=== PATIENT | male | born 1980 | race Caucasian/White ===

== ENCOUNTER 2017-10-27 14:39 | Emergency (ER) | payer MEDICAID, SELFPAY ==
[2017-10-27 14:40] VITALS: BP 130/90; PULSE 80; RESP 18; TEMP 37.2; O2SAT 99; BMI 26.9
--- NOTE | 2017-10-27 14:56 | ED.VISSUMM ---
- ER Visit Summary Date of Service: 10/27/17 Chief Complaint: Poison rubina History of Present Illness: The patient is a 37 M who states that 1.5 weeks ago he began to have a poison rubina-like rash on his left arm. He states he has been using calamine lotion. It has been very itchy. He notes an area of blistering at the volar aspect of the left wrist. He states that now he feels that it is coming down to his hand and notes several small blisters on his fingers. Physical Examination: Afebrile vital signs stable Gen: Well-nourished well-developed Head: Normocephalic atraumatic Eyes: Perrl EOMI ENT: TMs clear no rhinorrhea moist mucous membranes Neck: Supple no lymphadenopathy no JVD nontender CVS: Regular rate rhythm no murmurs normal S1-S2 Respiratory: No distress clear to auscultation bilaterally chest nontender Abdomen: Soft nontender nondistended normal bowel sounds no masses Back: Nontender Extremity: Nontender no edema Skin: There is a rash consistent with rhus dermatitis on the volar aspect of the left wrist. There is some dermatitis lesions on the ring and index finger. Neuro: alert orientated ?3 CN II-XII intact normal strength sensation reflexes gait cerebellar Psych: Normal affect normal mood Emergency Department Course and Treatment: Patient will be started on tapering dose of prednisone. Continue calamine lotion. Return if worsening or concerns Impression: 1. Rhus dermatitis This note was generated with [employer] dictation software. It may contain incorrect words, spelling, and punctuation that were not noted in review of the chart prior to signing ED Disposition - Plan for ED Patient: Disposition: Home or Assisted Living Chief Complaint: Rash Instructions: ED Dermatitis Poison Crosby Prescriptions: Prednisone [Deltasone] 60 mg PO DAILY #24 tab Referrals: Dane Lo MD [STAFF PHYSICIAN] - ( NEEDED IF NOT IMPROVING)
== END 2017-10-27 15:17 | disposition home or self-care (01) ==
PROVIDERS: Emergency Provider Emergency Medicine
DX: L23.7 Allergic contact dermatitis due to plants, except food (principal)
CPT/HCPCS: 99282

== ENCOUNTER 2018-05-03 15:24 | Emergency (ER) | payer MEDICAID, SELFPAY ==
[2018-05-03 15:25] VITALS: BP 143/80; PULSE 111; RESP 18; TEMP 37.6; O2SAT 96; BMI 28.3
--- NOTE | 2018-05-03 15:52 | EKG12_ITS ---
Test Reason : CP Blood Pressure : / mmHG Vent. Rate : 099 BPM Atrial Rate : 099 BPM P-R Int : 130 ms QRS Dur : 102 ms QT Int : 332 ms P-R-T Axes : 071 075 039 degrees QTc Int : 426 ms Normal sinus rhythm Possible Left atrial enlargement Poor R-Wave Progression Borderline ECG Confirmed by GIANNI BASS, ESDRAS ([id number]), deputy editor in chief PEDRO JOSE ([id number]) on 05/07/2018 2:02:00 PM Referred By: DANTE/BE Confirmed By:ESDRAS ARCHER MD
--- NOTE | 2018-05-03 15:52 | RAD_ITS ---
STUDY: X-RAY CHEST REASON FOR EXAM: Male, 37 years old. Right-sided chest pain TECHNIQUE: PA and lateral chest COMPARISON: 02/07/2016 FINDINGS: The lungs are clear and expanded. There is no demonstrated pleural abnormality. Normal size heart. Normal mediastinum and ami. Normal visualized pulmonary arteries. Normal visualized aortic arch and descending thoracic aorta. Normal visualized thoracic spine. Normal visualized ribs, clavicles, and shoulders. There is no demonstrated abnormality of the visualized soft tissue structures of the upper abdomen. RAD/Chest PA and Lateral IMPRESSION: Normal x-ray examination of the chest. Electronically Signed: Manolo Salazar, at 16:37 EDT Tel , Service support ,
--- NOTE | 2018-05-03 15:56 | ED.DCSUM_ITS ---
- ER Visit Summary Date of Service: 05/03/18 Chief Complaint: Chest pain History of Present Illness: The patient is a 37 M who presents with chest pain that began today. Patient states he was lifting a bag of trash to wait approximately 25-30 pounds when he developed pain in the right side of his chest. Patient describes the pain as dull, aching, tightness, and heaviness. Patient states pain is worse with deep breathing. Patient states pain is also worse with certain movements. Patient admits to a mild cough. Patient admits to some intermittent shortness of breath. Patient admits to occasional palpitations. Patient states he also has been having some gastroesophageal reflux symptoms recently. Patient denies any PE risk factors. Patient is a smoker and has borderline hypertension. Physical Examination: Vital signs are stable. Patient is afebrile. Patient is in no acute distress. Oral mucosa is pink and moist. Neck is supple. Trachea is midline. There is no JVD noted. Heart was regular rate and rhythm. Lungs are clear and equal bilaterally. There is reproducible tenderness over the right lower chest. Abdomen is soft and nontender. There is some mild tenderness over the right lower thoracic paraspinal area. Cranial nerves II through XII are intact. There are no focal motor or sensory deficits noted. Test Results: EKG showed a normal sinus rhythm with a rate of 99. There are no acute ST or T wave changes. PA and lateral chest x-rays obtained. There is no acute cardiopulmonary process. CBC, basic metabolic profile, troponin were obtained and were normal. Emergency Department Course and Treatment: Patient has a HEART score of 1 for risk factors. Patient has a HILLARY score of 1. Patient was advised that he is at low risk for acute cardiac event. Patient was given a prescription for Naprosyn. Patient was instructed to follow-up with his primary care physician in 5-7 days. Patient understood and was agreeable with the plan. All questions were answered. Disposition: Discharge home Impression: Chest pain This note was generated with [employer] dictation software. It may contain incorrect words, spelling, and punctuation that were not noted in review of the chart prior to signing ED Disposition - Plan for ED Patient: Disposition: Home or Assisted Living Diagnosis: Chest pain Instructions: ED Chest Pain Atypical Unkn Cause Referrals: Care Physician,No Primary [Primary Care Provider] - Tae Solis DO [STAFF PHYSICIAN] - 5-7 Days
[2018-05-03 16:00] VITALS: PULSE 93; RESP 16; TEMP 36.4; O2SAT 97
--- NOTE | 2018-05-03 16:04 | NURSING ---
NO OLD EKGS
[2018-05-03 16:10] LABS: Absolute Lymphocyte Count 2.08 X10^3/ul (0.83-4.51); Absolute Neutrophil Count 5.5 X10^3/uL (2.0-7.7); Basophil# 0.03 X10^3/uL; Basophil% 0.3 % (0-1); Eosinophil# 0.12 X10^3/uL; Eosinophils% 1.4 % (0-5); Hematocrit 44.6 % (40-54); Hemoglobin 15.4 g/dl (13.0-16.5); Lymphocyte # 2.08 X10^3/ul (4.0); Lymphocyte % 23.6 % (19-41); Mean Corp Hgb Conc 34.5 g/gl (32-36); Mean Corpuscular Hgb 30.7 pg (27.0-32.0); Mean Platelet Vol. 9.3 fl (6.2-12.0); Monocyte# 1.04 X10^3/uL; Monocyte% 11.8 % (0-10); Neutrophil # 5.52 X10^3/uL (2.7-7.7); Neutrophil % 62.7 % (47-70); POSITIVE COUNT NO; POSITIVE DIFFERENTIAL NO; POSITIVE MORPHOLOGY NO; Platelet Count 325 K/mm3 (150-450); RBC Distribution Width CV 12.7 % (11.6-14.6); RBC Distribution Width SD 40.8 fl (35.1-43.9); Red Blood Count 5.01 M/mm3 (4.6-6.2); White Blood Count 8.8 K/mm3 (4.4-11.0)
[2018-05-03 16:35] LABS: Anion Gap 4 (5-15); BUN 11 mg/dL (7-18); BUN/Creat Ratio 10.1 RATIO (10-20); Calcium,Total 8.7 mg/dL (8.5-10.1); Chloride 104 mmol/L (98-107); Creatinine, Serum 1.09 mg/dL (0.70-1.30); EST Glomerular Filtration Rate 81 mL/min (>60); Est Glom Filt Rate - Afr Amer 98 mL/min (>60); Estimated Creatinine Clearance 102.83 ml/min; Glucose 92 mg/dL (74-106); Potassium 3.9 mmol/L (3.5-5.1); Sodium Level 136 mmol/L (136-145)
[2018-05-03 16:37] VITALS: BP 129/90; PULSE 94; RESP 16; O2SAT 99
[2018-05-03 17:18] VITALS: BP 142/88; PULSE 83; RESP 18; O2SAT 97
== END 2018-05-03 17:29 | disposition home or self-care (01) ==
PROVIDERS: Emergency Provider Emergency Medicine
DX: R07.9 Chest pain, unspecified (principal); F17.200 Nicotine dependence, unspecified, uncomplicated; J45.909 Unspecified asthma, uncomplicated; I10 Essential (primary) hypertension
CPT/HCPCS: 71046; 80048; 84484; 85025; 93005; 99284; A4216

== ENCOUNTER 2020-03-06 12:40 | Emergency (ER) | payer MEDICAID, SELFPAY ==
[2020-03-06 12:42] VITALS: BP 152/91; PULSE 85; RESP 16; TEMP 36.6; O2SAT 99; BMI 28.5
--- NOTE | 2020-03-06 13:06 | ED.VISSUMM ---
- ER Visit Summary Date of Service: 03/06/20 Chief Complaint: Ring stuck on right ring finger History of Present Illness: The patient is a 39 M states he is unable to get the ring off his right ring finger today. Denies any trauma. No prior history. Said at home he had a associate professor of church music try to get it off and they were unsuccessful. Physical Examination: Young male no acute distress vital signs stable afebrile. H EENT exam unremarkable. Lungs are clear. Heart regular rhythm. Abdomen soft nontender. Right hand he has a large thick wide ring on the proximal aspect of his right ring finger. Distally there is mild swelling. No signs of cellulitis or trauma. He has full flexion-extension of all digits of the right hand. He is normal cap refill and touch sensation distally to the ring. Skin is intact. There is no signs of infection. There is no bony deformity. Test Results: None Emergency Department Course and Treatment: Patient has a ring stuck on his right ring finger. There has been no trauma or any signs of infection. We attempted to cut off the ring with ring cutters it was unsuccessful. We also tried a Raptor scissors which it actually broke them. We then had an area squad come in with their equipment and they were able to cut off the ring. Patient tolerated it well. He is doing well on repeat exam. Treatment Plan: Ice and elevate the area. Watch for any signs of infection. Motrin and elevate. Disposition: dc Impression: Ring stuck on right ring finger (cut off by paramedics) This note was generated with [employer] dictation software. It may contain incorrect words, spelling, and punctuation that were not noted in review of the chart prior to signing ED Disposition - Plan for ED Patient: Referrals: Care Physician,No Primary [NON-STAFF] -
--- NOTE | 2020-03-06 14:59 | ED.DEP ---
ED Disposition - Plan for ED Patient: Disposition: Home or Assisted Living Referrals: Care Physician,No Primary [NON-STAFF] - As Needed Additional Instructions: Ice and elevate your finger to decrease pain and swelling. Watch for any signs of infection that could develop unlikely.
== END 2020-03-06 15:04 | disposition home or self-care (01) ==
PROVIDERS: Emergency Provider Emergency Medicine; PCP Family Medicine
DX: S60.454A Superficial foreign body of right ring finger, initial encounter (principal); J45.909 Unspecified asthma, uncomplicated; Z72.0 Tobacco use; X58.XXXA Exposure to other specified factors, initial encounter; Y93.9 Activity, unspecified; Y92.89 Other specified places as the place of occurrence of the external cause; Y99.8 Other external cause status
CPT/HCPCS: 99282

== ENCOUNTER 2020-09-26 12:27 | Emergency (ER) | payer MEDICAID, SELFPAY ==
[2020-09-26 12:27] VITALS: BP 162/81; PULSE 80; RESP 16; TEMP 38.3; O2SAT 98; BMI 28.4
--- NOTE | 2020-09-26 12:58 | RAD_ITS ---
HISTORY: cough and fever EXAMINATION/TECHNIQUE: XR Chest 1 View: Portable upright AP chest x-ray COMPARISON: None FINDINGS: LINES/DEVICES: None. LUNGS: No consolidation, edema or effusion. No pneumothorax. MEDIASTINUM AND CARDIOVASCULAR STRUCTURES: Cardiac silhouette not enlarged. Central airways and mediastinal contour are unremarkable. BONES AND SOFT TISSUES: No acute bony abnormalities. RAD/Chest 1 View (Portable) IMPRESSION: No radiographic evidence of acute cardiopulmonary disease. at 1349 Reported and signed by: Gee Bowen MD Electronically Signed: Gee Bowen MD at 13:48 EDT Tel , Service support ,
[2020-09-26] MEDS: Acetaminophen 500 MG Tablet 1000 MG PO (13:50)
[2020-09-26 13:53] VITALS: BP 145/94; PULSE 83; RESP 18; O2SAT 98
--- NOTE | 2020-09-26 14:04 | EX.ED.DYSGE1 ---
HPI History of Present Illness Chief Complaint: General Illness Informant: patient and EMS Narrative Narrative: 40-year-old male arrives to the emergency department with fever and cough. He notes diarrhea and headache. He is concerned about Covid. He states that he has been ill for just over a week now. He states that originally one of his children was ill but has since recovered. He also notes that the other children and his have symptoms. [facility] Medical History Asthma Home Medications albuterol sulfate 2 puff INHALATION Q4H PRN 09/26/20 [History Last Taken Unknown] Allergy/AdvReac Type Severity Reaction Status Date / Time No Known Allergies Allergy Verified 09/26/20 12:31 Social History (Updated 09/26/20 @ 14:[address] Philipp Parker DO) Smoking Status: Current every day smoker tobacco type: cigarettes substance use type: does not use ROS ROS ED Constitutional Constitutional ED: Reports fever(s); Denies chills or weight loss Eyes Eyes: Denies change in vision or diplopia ENT ENT ED: Reports rhinorrhea; Denies ear pain or sore throat Cardiovascular Cardiovascular: Denies chest pain, orthopnea, palpitations or racing heartbeat Respiratory/Chest Respiratory/Chest: Reports cough; Denies dyspnea or orthopnea Gastrointestinal Gastrointestinal: Reports diarrhea; Denies abdominal pain, nausea or vomiting Genitourinary Genitourinary ED: Denies dysuria, hematuria or urinary frequency Musculoskeletal Musculoskeletal: Denies arthralgias or myalgias Integumentary Denies abscess or rash Neurologic Neurologic: Reports headache(s); Denies weakness Psychiatric Psychiatric: Denies anxiety, depression, suicidal ideation or suicidal thoughts Endocrine Endocrinology: Denies polydipsia, polyphagia or polyuria Allergic/Immunologic Allergic/Immunologic ED: Denies mouth swelling, tongue swelling or urticaria EXAM Physical Exam Const Vital Signs: 09/26/20 12:27 09/26/20 13:52 09/26/20 13:53 Temperature 101.0 F H Temperature Source Oral Pulse Rate 80 83 Respiratory Rate 16 18 Respiratory Effort Normal Non-Labored Respiratory Pattern Normal Blood Pressure 162/81 H 145/94 H Blood Pressure Mean 108 111 Pulse Ox 98 98 Oxygen Delivery Method Room Air Positive well nourished and well developed General Appearance ED: well developed HEENT Reports normocephalic, head/scalp atraumatic and moist mucous membranes Eyes PERRL and EOMs intact bilaterally Neck no lymphadenopathy, supple and no JVD Resp normal respiratory effort and clear to auscultation bilaterally Cardio regular rate, regular rhythm and no murmurs GI normal to inspection, nondistended, normoactive bowel sounds and non-tender Palpation: soft Back/Spine no CVA tenderness and normal ROM Extremity normal to inspection General Extremety ED: Negative for edema General Extremity: Negative for edema Neuro oriented x3 and CN's II-XII intact bilaterally Sensorium / Orientation: alert Motor Exam: strength 5/5 throughout Psych mental status grossly normal Mood & Affect: Negative for depressed or tearful Skin no rashes or lesions noted and no wounds MDM MDM MDM Narrative Medical decision making narrative: Patient's rapid Covid is negative. My interpretation of the chest x-ray is no acute process. Because we have multiple family members who are ill during the pandemic but I asked them to draw a Covid PCR on the patient. He did receive Tylenol here in the department. At this point patient clinically appears well will be discharged home Radiography Diagnostic Testing: Radiology Impression Chest X-Ray 09/26/20 12:58 IMPRESSION: No radiographic evidence of acute cardiopulmonary disease. at 1349 Reported and signed by: Gee Bowen MD Electronically Signed: Gee Bowen MD at 13:48 EDT Tel , Service support , Discharge Plan Triage Chief Complaint: General Illness ED Provider: Philipp Parker Dx/Rx/DC Orders Clinical Impression: Acute febrile illness Instructions: ED URI, Viral, No Abx (Adult) Prescriptions: No Action albuterol sulfate 90 mcg/actuation HFA aerosol inhaler 2 puff INHALATION Q4H PRN (Reason: Shortness Of Breath Or Wheezing) RF: 0 Primary Care Provider: Malachi Richardson Referrals: Malachi Richardson MD [Primary Care Provider] - 3-5 Days if not improving Disposition Disposition: Home, Self Care
[2020-09-26 14:20] VITALS: BP 131/96; PULSE 91; RESP 18; O2SAT 97
[2020-09-26 15:08] LABS: Probe Check PASS; Specimen Processing Control PASS
== END 2020-09-26 14:21 | disposition home or self-care (01) ==
PROVIDERS: Emergency Provider Emergency Medicine; PCP Family Medicine
DX: R50.9 Fever, unspecified (principal); R19.7 Diarrhea, unspecified; R51.9 Headache, unspecified; F17.210 Nicotine dependence, cigarettes, uncomplicated; J45.909 Unspecified asthma, uncomplicated; Z79.899 Other long term (current) drug therapy
CPT/HCPCS: 71045; 87426; 87635; 99284; U0005; U0003

== ENCOUNTER 2022-09-06 12:51 | Emergency (ER) | payer MEDICAID, SELFPAY ==
[2022-09-06 12:52] VITALS: BP 129/84; PULSE 77; RESP 18; TEMP 35.9; O2SAT 99; BMI 27.1
[2022-09-06] MEDS: 0.9% Normal Saline 1,000 ML 1000 ML IV (14:23)
[2022-09-06 14:47] LABS: Basophil# 0.02 X10^3/uL; Basophil% 0.3 % (0-1); Eosinophil# 0.29 X10^3/uL; Eosinophils% 3.8 % (0-5); Hematocrit 39.8 % (40-54); Hemoglobin 13.2 g/dL (13.0-16.5); Lymphocyte % 30.3 % (19-41); Mean Corp Hgb Conc 33.2 g/dL (32-36); Mean Corpuscular Hgb 30.5 pg (27.0-32.0); Mean Corpuscular Volume 91.9 fL (80-94); Mean Platelet Vol. 9.7 fl (6.2-12.0); Monocyte# 0.94 X10^3/uL; Monocyte% 12.4 % (0-10); NRBC Flagged by Analyzer 0 % (0-5); Neutrophil # 4.03 X10^3/uL (2.7-7.7); Neutrophil % 52.9 % (47-70); Platelet Count 301 K/mm3 (150-450); RBC Distribution Width SD 40.5 fl (35.1-43.9); Red Blood Count 4.33 M/mm3 (4.6-6.2); White Blood Count 7.6 K/mm3 (4.4-11.0)
[2022-09-06 14:58] LABS: ALB/GLOB Ratio 1.2 RATIO (0.9-2.4); AST(SGOT) 13 U/L (15-37); Alanine Aminotransfer ALT/SGPT 14 U/L (16-61); Albumin, Serum 3.7 g/dL (3.2-5.0); Alkaline Phosphatase 65 U/L (45-117); Anion Gap 1 (5-15); BUN 12 mg/dL (7-18); BUN/Creat Ratio 13.3 RATIO (10-20); Calcium,Total 8.7 mg/dL (8.5-10.1); Chloride 108 mmol/L (98-107); EST Glomerular Filtration Rate 98 mL/min (>60); Est Glom Filt Rate - Afr Amer 119 mL/min (>60); Estimated Creatinine Clearance 118.56 ml/min; Glucose 85 mg/dL (74-106); Lipase 24 U/L (13-75); Potassium 4.2 mmol/L (3.5-5.1); Protein, Total 6.7 g/dL (6.4-8.2); Sodium Level 139 mmol/L (136-145)
--- NOTE | 2022-09-06 15:22 | EDS_ITS ---
HPI HPI - GI History of Present Illness Chief Complaint: Nausea/Vomiting [facility] Medical History Asthma Home Medications albuterol sulfate 90 mcg/actuation aerosol inhaler 2 puff inhalation Q4H PRN Shortness Of Breath Or Wheezing 09/26/20 [History Last Taken Unknown] Allergy/AdvReac Type Severity Reaction Status Date / Time No Known Allergies Allergy Verified 09/06/22 12:53 Social History (Updated 09/26/20 @ 14:[address] Philipp Parker DO) Smoking Status: Current every day smoker tobacco type: cigarettes substance use type: does not use EXAM Physical Exam Const Vital Signs: 09/06/22 12:52 Temperature 96.6 F L Temperature Source Temporal Pulse Rate 77 Respiratory Rate 18 Blood Pressure 129/84 H Blood Pressure Mean 99 Pulse Ox 99 Oxygen Delivery Method Room Air MDM MDM Lab Data Labs: Laboratory Results - last 24 hr 09/06/22 14:25 WBC 7.6 RBC 4.33 L Hgb 13.2 Hct 39.8 L MCV 91.9 MCH 30.5 MCHC 33.2 RDW Std Deviation 40.5 RDW Coeff of Charlie 12.0 Plt Count 301 MPV 9.7 Immature Gran % (Auto) 0.300 Neut % (Auto) 52.9 Lymph % (Auto) 30.3 [place] % (Auto) 12.4 H Eos % (Auto) 3.8 Baso % (Auto) 0.3 Absolute Neuts (auto) 4.0 Absolute Lymphs (auto) 2.30 Nucleated RBC % 0 Sodium 139 Potassium 4.2 Chloride 108 H Carbon Dioxide 30.0 Anion Gap 1 L BUN 12 Creatinine 0.90 Estim Creat Clear Calc 118.56 Est GFR (MDRD) Af Amer 119 Est GFR (MDRD) Non-Af 98 BUN/Creatinine Ratio 13.3 Glucose 85 Calcium 8.7 Total Bilirubin 0.40 AST 13 L ALT 14 L Alkaline Phosphatase 65 Total Protein 6.7 Albumin 3.7 Globulin 3.0 Albumin/Globulin Ratio 1.2 Lipase 24 Discharge Plan Triage Chief Complaint: Nausea/Vomiting ED Provider: Dane Swanson Dx/Rx/DC Orders Prescriptions: No Action albuterol sulfate 90 mcg/actuation HFA aerosol inhaler 2 puff INHALATION Q4H PRN (Reason: Shortness Of Breath Or Wheezing) Patient Comments: INHALE 2 PUFFS BY MOUTH EVERY 4 HOURS NEEDED Primary Care Provider: Malachi Richardson Referrals: Malachi Richardson MD [Primary Care Provider] -
--- NOTE | 2022-09-06 15:22 | ED.VIS.GI ---
HPI HPI - GI History of Present Illness Chief Complaint: Nausea/Vomiting Informant: patient Abdominal Pain/Flank Pain Onset: Yesterday Context: Gradual Onset Timing: Intermittent Quality: Stabbing Location: Diffuse Worsened by: Nothing Relieved by: - (Vomiting) Nausea/Vomiting/Emesis GI Symptom: Positive for Nausea and Vomiting Quality: Positive for Nonbilious; Negative for Blood streaks, Coffee ground or Hematemesis Diarrhea/Melena/Hematochezia GI Symptom: Positive for Diarrhea; Negative for Melena or Hematochezia Associated Symptoms Associated Symptoms: Negative for Dysuria, Frequency or Hematuria Narrative Narrative: Patient presents with abdominal pain, nausea, vomiting, and diarrhea that began last night. Patient states it gradually got worse today. Patient states he vomited once today. Patient states that it was stomach contents. Patient denies any hematemesis or coffee-ground emesis. Patient denies any biliary vomiting. Patient admits to some diarrhea. Patient states it is loose and watery. Patient denies any melena or hematochezia. Patient denies any dysuria or frequency. Patient denies any hematuria. Patient admits to some subjective fevers but did not take his temperature. [facility] Medical History Asthma Home Medications albuterol sulfate 90 mcg/actuation aerosol inhaler 2 puff inhalation Q4H PRN Shortness Of Breath Or Wheezing 09/26/20 [History Last Taken Unknown] ondansetron 4 mg disintegrating tablet 4 mg PO Q8H PRN PRN Nausea #10 tabs 09/06/22 [Rx Last Taken Unknown] Allergy/AdvReac Type Severity Reaction Status Date / Time No Known Allergies Allergy Verified 09/06/22 12:53 Surgical History no surgical history no surgical history Social History Smoking Status: Current every day smoker tobacco type: cigarettes substance use type: does not use ROS ROS ED Constitutional Constitutional ED: Reports fever(s) and subjective; Denies chills Eyes Eyes: Denies blurry vision or change in vision ENT ENT ED: Denies rhinorrhea or sore throat Cardiovascular Cardiovascular: Denies chest pain or palpitations Respiratory/Chest Respiratory/Chest: Reports cough; Denies dyspnea Gastrointestinal Gastrointestinal: Reports abdominal pain, diarrhea, nausea and vomiting Genitourinary Genitourinary ED: Denies dysuria or hematuria Musculoskeletal Musculoskeletal: Reports back pain; Denies neck pain Integumentary Denies abscess or rash Neurologic Neurologic: Denies headache(s) or weakness Allergic/Immunologic Allergic/Immunologic ED: Denies mouth swelling or urticaria EXAM Physical Exam Const Vital Signs: 09/06/22 12:52 Temperature 96.6 F L Temperature Source Temporal Pulse Rate 77 Respiratory Rate 18 Blood Pressure 129/84 H Blood Pressure Mean 99 Pulse Ox 99 Oxygen Delivery Method Room Air Positive well nourished and well developed General Appearance ED: well developed and NAD HEENT Reports moist mucous membranes Neck supple and no JVD Resp normal respiratory effort and clear to auscultation bilaterally Cardio regular rate, regular rhythm and no murmurs GI normal to inspection, nondistended, normoactive bowel sounds and non-tender Palpation: soft Extremity normal to inspection General Extremety ED: Negative for edema or tenderness General Extremity: Negative for edema Neuro oriented x3, CN's II-XII intact bilaterally and no sensory deficits noted Sensorium / Orientation: alert Motor Exam: strength 5/5 throughout Psych mental status grossly normal Skin no rashes or lesions noted MDM MDM MDM Narrative Medical decision making narrative: Differential diagnosis includes gastroenteritis, pancreatitis, peptic ulcer disease, and duodenal ulcer. CBC will be obtained to assess for leukocytosis and anemia. Comprehensive metabolic profile will be obtained to assess for hepatic function, renal function, and electrolyte abnormality. Lipase will be obtained to assess for pancreatitis. Lab Data Attestation: I reviewed the patient's lab results. Lab results narrative: CBC was reviewed and was within normal limits. Comprehensive metabolic profile was reviewed and was within normal limits. Lipase was reviewed and was normal. Labs: Laboratory Results - last 24 hr 09/06/22 14:25 WBC 7.6 RBC 4.33 L Hgb 13.2 Hct 39.8 L MCV 91.9 MCH 30.5 MCHC 33.2 RDW Std Deviation 40.5 RDW Coeff of Charlie 12.0 Plt Count 301 MPV 9.7 Immature Gran % (Auto) 0.300 Neut % (Auto) 52.9 Lymph % (Auto) 30.3 [place] % (Auto) 12.4 H Eos % (Auto) 3.8 Baso % (Auto) 0.3 Absolute Neuts (auto) 4.0 Absolute Lymphs (auto) 2.30 Nucleated RBC % 0 Sodium 139 Potassium 4.2 Chloride 108 H Carbon Dioxide 30.0 Anion Gap 1 L BUN 12 Creatinine 0.90 Estim Creat Clear Calc 118.56 Est GFR (MDRD) Af Amer 119 Est GFR (MDRD) Non-Af 98 BUN/Creatinine Ratio 13.3 Glucose 85 Calcium 8.7 Total Bilirubin 0.40 AST 13 L ALT 14 L Alkaline Phosphatase 65 Total Protein 6.7 Albumin 3.7 Globulin 3.0 Albumin/Globulin Ratio 1.2 Lipase 24 Treatment and Re-Evaluation :: Patient was given IV fluids, morphine, and Zofran. Patient was advised of his findings. Patient was feeling better on reevaluation. Patient was instructed to start with a liquid diet and advance as tolerated. Patient was given a prescription for Zofran. Patient was instructed to follow-up with his primary care physician in 5 to 7 days. Patient was given a note for work for today. Patient understood and was agreeable with the plan. All questions were answered. Discharge Plan Triage Chief Complaint: Nausea/Vomiting ED Provider: Dane Swanson Dx/Rx/DC Orders Clinical Impression: Nausea, vomiting, and diarrhea, Abdominal pain Instructions: ED Gastroenteritis, Viral (Adult), ED Vomiting and Diarrhea ... Prescriptions: New ondansetron [ondansetron] 4 mg tablet,disintegrating 4 mg PO Q8H PRN PRN (Reason: Nausea) Qty: 10 0RF No Action albuterol sulfate 90 mcg/actuation HFA aerosol inhaler 2 puff INHALATION Q4H PRN (Reason: Shortness Of Breath Or Wheezing) Patient Comments: INHALE 2 PUFFS BY MOUTH EVERY 4 HOURS NEEDED Stand Alone Forms: ED Work / School Excuse Primary Care Provider: Malachi Richardson Referrals: Malachi Richardson MD [Primary Care Provider] - 5-7 Days Disposition Disposition: Home, Self Care
== END 2022-09-06 15:47 | disposition home or self-care (01) ==
PROVIDERS: Emergency Provider Emergency Medicine; PCP Family Medicine; Visit Provider Emergency Medicine
DX: R11.2 Nausea with vomiting, unspecified (principal); R10.9 Unspecified abdominal pain; R19.7 Diarrhea, unspecified; F17.210 Nicotine dependence, cigarettes, uncomplicated; J45.909 Unspecified asthma, uncomplicated
CPT/HCPCS: 80053; 83690; 85025; 96360; 99283; J7030

== ENCOUNTER 2023-08-10 21:42 | Emergency (ER) | payer MEDICAID, SELFPAY ==
[2023-08-10 21:42] VITALS: BP 156/98; PULSE 70; RESP 16; TEMP 35.9; O2SAT 100; BMI 27.2
[2023-08-10] MEDS: predniSONE 20 MG Tablet 60 MG PO (21:56)
--- NOTE | 2023-08-10 21:58 | EDS_ITS ---
HPI History of Present Illness Chief Complaint: Rash Informant: patient Onset/Context/Timing Onset: Days Context: Gradual Onset Timing: Continuous Current Severity: Mild Maximum Severity: Mild Narrative Narrative: 43-year-old male history of asthma. States that the rash initially on his right wrist now slightly on the back of his left hand. It itches badly. He was helping a friend move outside furniture there was a lot of weeds there may or may not been poison rubina in it. Denies any other complaints. Prior similar symptoms: Yes Recent Illness/Hospitalization: No PFSH PFSH Medical History Asthma Home Medications ?Medication ?Instructions ?Recorded ?Last Taken ?Type prednisone 20 mg tablet 40 mg (2 x 20 mg) PO DAILY 7 days 08/10/23 Unknown Rx #14 tabs Allergy/AdvReac Type Severity Reaction Status Date / Time No Known Allergies Allergy Verified 08/10/23 21:45 Social History Smoking Status: Current every day smoker tobacco type: cigarettes substance use type: does not use ROS ROS ED ROS Narrative Rash on right wrist and back left hand. Itching. No recent illness. Review of Systems ROS Unobtainable: Denies due to encephalopathy Constitutional Constitutional ED: Denies chills or fever(s) Eyes Eyes: Denies blurry vision ENT ENT ED: Denies ear pain Cardiovascular Cardiovascular: Denies chest pain Respiratory/Chest Respiratory/Chest: Denies cough or dyspnea Gastrointestinal Gastrointestinal: Denies abdominal pain Genitourinary Genitourinary ED: Denies dysuria or hematuria Musculoskeletal Musculoskeletal: Denies arthralgias Integumentary Reports rash; Denies abscess or Abrasions Neurologic Neurologic: Denies headache(s) Psychiatric Psychiatric: Denies anxiety Endocrine Endocrinology: Denies cold intolerance Hematologic/Lymphatic Hematologic/Lymphatic: Reports none Allergic/Immunologic Allergic/Immunologic ED: Denies mouth swelling, tongue swelling or urticaria EXAM Physical Exam Narrative Exam Narrative: Well-appearing 43-year-old male. Vital signs stable afebrile. H EENT exam unremarkable. Neck nontender no lymphadenopathy. Lungs clear to auscultation. Heart regular rate and rhythm rate about 70 no murmur. Chest wall and ribs nontender. Abdomen soft nontender. Moving all 4 extremities. The dorsum of his right wrist has blistering and a rash consistent with a contact dermatitis. Similar but much less involve the dorsum of his left hand. No cellulitis. No streaks. No pus. Otherwise exam is unremarkable. This is consistent with a contact dermatitis. Const Vital Signs: 08/10/23 21:42 Temperature 96.6 F L Temperature Source Temporal Pulse Rate 70 Respiratory Rate 16 Blood Pressure 156/98 H Blood Pressure Mean 117 Pulse Ox 100 Oxygen Delivery Method Room Air Positive well nourished and well developed; Negative for obese, cachectic, contractures or unkempt General Appearance ED: well developed and NAD; Negative for unkempt, cachectic, contractures, cyanotic, diaphoretic or pallor Nutritional Appearance: Negative for cachectic or obese HEENT Reports moist mucous membranes; Denies dry mucous membranes Negative for trauma or tenderness Mouth ED: No dry mucous membranes Mouth: No dry mucous membranes Eyes PERRL and EOMs intact bilaterally General Eye ED: Negative for pale conjunctiva or scleral icterus Neck no lymphadenopathy, supple and no JVD General: Negative for tenderness Lymph Lymphatic: Negative for other Chest Wall inspection of chest normal and palpation of chest normal Resp normal respiratory effort and clear to auscultation bilaterally Effort and Inspection: Negative for retractions Auscultation: Negative for rales, rhonchi, wheezes or diminished lung sounds Cardio regular rate, regular rhythm, S1 normal heart sound, S2 normal heart sound and no murmurs Rhythm: Negative for abnormal rhythm GI normal to inspection, nondistended, normoactive bowel sounds, non-tender, non- distended and no masses Palpation: soft; Negative for tender, guarding or rebound tenderness present Back/Spine no CVA tenderness Extremity normal to inspection Extremity Narrative: Rash dorsum right wrist and dorsum left hand. Consistent with a contact dermatitis. General Extremety ED: Negative for edema or tenderness General Extremity: Negative for edema Neuro oriented x3 and CN's II-XII intact bilaterally Sensorium / Orientation: alert Motor Exam: strength 5/5 throughout Psych mental status grossly normal Appearance: Negative for unkempt Attitude: No agitated Mood & Affect: Negative for depressed or anxious Skin No no rashes or lesions noted, no wounds and skin turgor normal General Skin Exam: elasticity normal; Negative for jaundice or pallor Lesions: No lesion noted Rashes: rashes noted MDM MDM MDM Narrative Medical decision making narrative: 43-year-old male with a rash on his right wrist for about 5 days. Consistent with a contact dermatitis. He will be started on prednisone 40 mg a day first dose given in the ER. Benadryl and calamine lotion. This should improve. If not follow-up with his doctor. History & Record Review Discussion w/independent historian: Patient Discharge Plan Triage Chief Complaint: Rash ED Provider: Daniel Germain Dx/Rx/DC Orders Clinical Impression: Contact dermatitis, Poison rubina dermatitis Instructions: ED Contact Dermatitis Prescriptions: New prednisone 20 mg tablet 40 mg PO DAILY 7 Days Qty: 14 0RF Primary Care Provider: Malachi Richardson Referrals: Malachi Richardson MD [Primary Care Provider] - As Needed Activity Restrictions/Additional Instructions: Clean gently daily with soap and water. Apply calamine or Benadryl lotion to it several times a day. That will help decrease the itching and help improve. Watch for any signs of infection such as significant redness, swelling streaks, fever or pus is seen needs to be reevaluated. Take the prednisone each day till gone. If the rash goes away before you are finished with the prednisone you may stop it. Follow-up with your doctor if not improving. Print Language: Moroccan Disposition Disposition: Home, Self Care
[2023-08-10 22:06] VITALS: BP 154/60; PULSE 75; RESP 18; TEMP 36.6; O2SAT 98
== END 2023-08-10 22:07 | disposition home or self-care (01) ==
LOC: ED 22:02
PROVIDERS: Emergency Provider Emergency Medicine; PCP Family Medicine; Visit Provider Emergency Medicine
DX: L23.7 Allergic contact dermatitis due to plants, except food (principal); F17.210 Nicotine dependence, cigarettes, uncomplicated; J45.909 Unspecified asthma, uncomplicated
CPT/HCPCS: 99282

== ENCOUNTER 2023-10-31 14:46 | Emergency (ER) | payer MEDICAID, SELFPAY ==
[2023-10-31 14:47] VITALS: BP 142/89; PULSE 92; RESP 16; TEMP 37; O2SAT 100; BMI 20.2
--- NOTE | 2023-10-31 15:21 | EDS_ITS ---
HPI History of Present Illness Chief Complaint: Fever Detail of Chief Complaint: Fever and vomiting Informant: patient Narrative Narrative: Patient presents to the emergency department complaint of vomiting and fever that started this morning. Patient states that he woke up and he had got a cold sweat and vomited twice. Has not vomited since. He had no diarrhea. Denies abdominal pain. He has had a cough for about 2 weeks. In a couple weeks ago he had some bodyaches as well. Patient states that his son is currently ill with cough and fever as well. Patient has history of asthma and history of borderline hypertension [facility] Medical History Asthma Home Medications ?Medication ?Instructions ?Recorded ?Last Taken ?Type prednisone 20 mg tablet 40 mg (2 x 20 mg) PO DAILY 7 days 08/10/23 Unknown Rx #14 tabs Allergy/AdvReac Type Severity Reaction Status Date / Time No Known Allergies Allergy Verified 10/31/23 14:47 Social History Smoking Status: Current every day smoker tobacco type: cigarettes substance use type: does not use ROS ROS ED Review of Systems ROS Unobtainable: other Constitutional Constitutional ED: Reports chills, fever(s), lethargy and sweats; Denies weight loss Eyes Eyes: Denies blurry vision, change in vision or diplopia ENT ENT ED: Denies rhinorrhea or sore throat Cardiovascular Cardiovascular: Denies chest pain, orthopnea or racing heartbeat Respiratory/Chest Respiratory/Chest: Reports cough; Denies dyspnea, dyspnea on exertion, orthopnea or sputum Gastrointestinal Gastrointestinal: Reports vomiting; Denies abdominal pain, diarrhea or nausea Genitourinary Genitourinary ED: Denies dysuria, hematuria or urinary frequency Musculoskeletal Musculoskeletal: Denies arthralgias, back pain, myalgias or neck pain Integumentary Denies abscess, Abrasions or rash Neurologic Neurologic: Denies headache(s) or weakness Psychiatric Psychiatric: Denies anxiety, depression or suicidal thoughts Endocrine Endocrinology: Denies polydipsia, polyphagia or polyuria Hematologic/Lymphatic Hematologic/Lymphatic: Denies easy bleeding, easy bruising or lymphadenopathy Allergic/Immunologic Allergic/Immunologic ED: Denies mouth swelling, tongue swelling or urticaria EXAM Physical Exam Const Vital Signs: 10/31/23 14:47 10/31/23 15:56 Temperature 98.6 F Temperature Source Oral Pulse Rate 92 Respiratory Rate 16 Respiratory Pattern Normal Blood Pressure 142/89 H Blood Pressure Mean 106 Pulse Ox 100 Oxygen Delivery Method Room Air Positive well nourished and well developed General Appearance ED: well developed and NAD HEENT Reports TM's clear and moist mucous membranes normocephalic and atraumatic; Negative for trauma or tenderness Tympanic Membrane ED: Yes TM's clear Eyes PERRL and EOMs intact bilaterally General Eye ED: Negative for pale conjunctiva or scleral icterus Neck no lymphadenopathy, supple and no JVD General: Negative for tenderness Chest Wall inspection of chest normal and palpation of chest normal Chest: Negative for tenderness Resp normal respiratory effort and clear to auscultation bilaterally Effort and Inspection: Negative for respiratory distress or pain with movement Auscultation: Negative for rhonchi, wheezes or diminished lung sounds Cardio regular rate, regular rhythm, S1 normal heart sound, S2 normal heart sound and no murmurs Peripheral Pulses: pulses 2+ throughout GI normal to inspection, nondistended, normoactive bowel sounds, soft to palpation, non-tender, non-distended and no masses Back/Spine no CVA tenderness and no thoracic nor lumbar tenderness Extremity normal to inspection General Extremety ED: Negative for edema General Extremity: Negative for edema Neuro oriented x3, CN's II-XII intact bilaterally, no sensory deficits noted and gait normal Sensorium / Orientation: awake, alert, oriented to person, oriented to place and oriented to time Motor Exam: strength 5/5 throughout and strength abnormal Psych mental status grossly normal Skin no rashes or lesions noted and no wounds MDM MDM MDM Narrative Medical decision making narrative: Patient presents with vomiting and fever that started this morning. He said a cough for over a week. Clinically looks well. He has had no more vomiting since this morning and has had no diarrhea. I did do COVID flu and RSV testing that was negative. I did do a chest x-ray given the cough for a week and this was also unremarkable as far as signs of pneumonia. This point will be discharged to home. Suspect likely a viral syndrome. He does not want a thing for nausea. Advised to follow-up with primary care physician within next 3 to 5 days. Lab Data Attestation: I reviewed the patient's lab results. Radiography Diagnostic Testing: Clinical Impression(s) from Imaging Studies Chest X-Ray 10/31/23 15:40 IMPRESSION: Normal x-ray examination of the chest. Electronically Signed: Geo Howard MD at 16:15 EDT , 1 view chest x-ray obtained interpreted by myself as no evidence of infiltrate or pneumothorax or any acute disease process. Radiology in agreement. Discharge Plan Triage Chief Complaint: Fever ED Provider: Vikas Quan Dx/Rx/DC Orders Clinical Impression: Acute viral syndrome Instructions: ED Viral Syndrome (Adult) Prescriptions: No Action prednisone 20 mg tablet 40 mg PO DAILY 7 Days Qty: 14 0RF Primary Care Provider: Malachi Richardson Referrals: Malachi Richardson MD [Primary Care Provider] - 5-7 Days Print Language: [place] Disposition Disposition: Home, Self Care
--- NOTE | 2023-10-31 15:40 | RAD_ITS ---
STUDY: X-RAY CHEST REASON FOR EXAM: Male, 43 years old. cough, fever TECHNIQUE: Single AP portable view of the chest. COMPARISON: 09/26/2020. FINDINGS: The lungs are clear and expanded. There is no demonstrated pleural abnormality. Normal size heart. Normal mediastinum and ami. Normal visualized pulmonary arteries. Normal visualized aortic arch and descending thoracic aorta. Normal visualized thoracic spine. Normal visualized ribs, clavicles, and shoulders. There is no demonstrated abnormality of the visualized soft tissue structures of the upper abdomen. RAD/Chest 1 View (Portable) IMPRESSION: Normal x-ray examination of the chest. Electronically Signed: Geo Howard MD at 16:15 EDT ,
[2023-10-31 17:27] VITALS: BP 122/82; PULSE 74; RESP 16; TEMP 36.6; O2SAT 99
== END 2023-10-31 17:33 | disposition home or self-care (01) ==
PROVIDERS: Emergency Provider Emergency Medicine; PCP Family Medicine; Visit Provider Emergency Medicine
DX: B34.9 Viral infection, unspecified (principal); R05.9 Cough, unspecified; R11.10 Vomiting, unspecified; F17.210 Nicotine dependence, cigarettes, uncomplicated; Z87.09 Personal history of other diseases of the respiratory system
CPT/HCPCS: 71045; 87631; 99282

== ENCOUNTER 2024-09-23 14:21 | Emergency (ER) | payer MEDICAID, SELFPAY ==
[2024-09-23 14:22] VITALS: BP 136/96; PULSE 97; RESP 14; TEMP 37.2; O2SAT 98; BMI 22.8
--- NOTE | 2024-09-23 16:13 | EDS_ITS ---
HPI HPI - URI History of Present Illness Chief Complaint: Cough Detail of Chief Complaint: Upper respiratory infectious symptoms that started Monday Informant: patient Onset/Context/Timing Onset: Days Context: Sudden Onset Timing: Continuous Quality: Dyspnea, intermittent wheezing, congestion and productive cough Location: Respiratory Current Severity: Mild Maximum Severity: Moderate Worsened by: - (Activity); Not Worsened By Swallowing, Eating Solids or Drinking Liquids Relieved by: Not Relieved By Tylenol or NSAIDs Associated Symptoms Associated Symptoms: Positive for Nasal Congestion, Myalgias, Diarrhea (Mushy stools.), Shortness of Breath and Productive Cough (White to white-yellow.); Negative for Headache, Sinus Pressure, Nausea, Vomiting, Chest Pain, Nonproductive cough or Hemoptysis Narrative Narrative: Patient is a 44-year-old male. He is a smoker of 1 pack/day since age of 18. He states he has been out of his inhaler since last week. He complains of subjective fever, sweats, myalgias arthralgias. He also endorses congestion and a productive cough of white to white yellow-colored sputum. He denies abdominal pain, nausea or vomiting. He has had several mushy stools. He has had no exposure to anyone to his knowledge with COVID. He denies urologic symptoms. He denies rash. Prior similar symptoms: Yes Recent Illness/Hospitalization: No ROS ROS ED Constitutional Constitutional ED: Reports chills, fever(s), subjective and sweats; Denies weight loss Eyes Eyes: Denies blurry vision, change in vision or diplopia ENT ENT ED: Reports rhinorrhea; Denies ear pain or sore throat Cardiovascular Cardiovascular: Denies chest pain, orthopnea, palpitations or paroxysmal nocturnal dyspnea Respiratory/Chest Respiratory/Chest: Reports cough, dyspnea, sputum and other Details: He also endorses intermittent wheezing. ; Denies dyspnea on exertion, orthopnea or paroxysmal nocturnal dyspnea Gastrointestinal Gastrointestinal: Denies abdominal pain, constipation, nausea or vomiting Musculoskeletal Musculoskeletal: Reports arthralgias and myalgias Integumentary Denies rash Neurologic Neurologic: Reports weakness; Denies headache(s) or paresthesias Hematologic/Lymphatic Hematologic/Lymphatic: Denies easy bleeding or easy bruising [facility] Medical History Asthma Home Medications ?Medication ?Instructions ?Recorded ?Last Taken ?Type prednisone 20 mg tablet 40 mg (2 x 20 mg) PO DAILY 7 days 08/10/23 Unknown Rx #14 tabs doxycycline monohydrate 100 mg 100 mg PO BID #10 CAPSU LES 09/23/24 Unknown Rx capsule prednisone 20 mg tablet 60 mg (3 x 20 mg) PO DAILY # 12 09/23/24 Unknown Rx TABLETS Allergy/AdvReac Type Severity Reaction Status Date / Time No Known Allergies Allergy Verified 09/23/24 14:23 Social History Smoking Status: Current every day smoker tobacco type: cigarettes substance use type: does not use EXAM Physical Exam Const Vital Signs: 09/23/24 14:22 09/23/24 16:22 09/23/24 16:24 Temperature 98.9 F Temperature Source Temporal Pulse Rate 97 Respiratory Rate 14 16 Respiratory Effort Normal Non-Labored Respiratory Depth Normal Respiratory Pattern Normal Blood Pressure 136/96 H Blood Pressure Mean 109 Pulse Ox 98 Oxygen Delivery Method Room Air Room Air Positive well nourished and well developed Constitutional Narrative: Patient does not appear well. Does not appear toxic either. His blood pressure is elevated. General Appearance ED: well developed; Negative for cyanotic, diaphoretic or pallor HEENT Reports moist mucous membranes HEENT Narrative: Head is atraumatic normocephalic. Ears normal. Nares patent with clear drainage. Posterior pharynx is normal. Eyes PERRL and EOMs intact bilaterally General Eye ED: Negative for pale conjunctiva or scleral icterus Neck no lymphadenopathy, supple, no meningeal signs and no JVD Resp normal respiratory effort and No clear to auscultation bilaterally Resp Narrative: Rales right lower lobe with egophony. There is wheezing noted that scattered on expiration with forced expiration. Cardio S1 normal heart sound, S2 normal heart sound and no murmurs Rate: regular rate GI non-tender, non-distended and no masses Extremity normal to inspection and full ROM Extremity Narrative: There is no clubbing, cyanosis or mottling of the extremities. Neuro oriented x3 and CN's II-XII intact bilaterally Sensorium / Orientation: alert Psych mental status grossly normal Skin General Skin Exam: Negative for jaundice or pallor Lesions: no lesions Rashes: no rashes MDM MDM MDM Narrative Medical decision making narrative: Nurse protocol was placed for rapid antigen testing. Because he has rales with wheezing and egophony chest x-ray was obtained. He was treated with albuterol and oral prednisone for his respiratory complaints. Differential diagnosis is exacerbation of asthma due to upper respiratory infection clinically he has a r ight lower lobe pneumonia. If chest x-ray confirms he has a right lower lobe pneumonia we will treat with antibiotics. Since he is less than 45 years old laboratory testing was not obtained especially since he is not tachycardic, tachypneic or febrile. Furthermore he is not hypoxic. Lab Data Attestation: I reviewed the patient's lab results. Lab results narrative: Rapid antigen for influenza, RSV and COVID were all negative. Radiography Diagnostic Testing: Clinical Impression(s) from Imaging Studies Chest X-Ray 09/23/24 16:30 IMPRESSION: No evidence of acute pulmonary disease. Reading Location: [facility] Treatment and Re-Evaluation Narrative: Since patient has rales and egophony right lower lobe with negative rapid antigen for COVID influenza and RSV will treat with antibiotic. He also will receive a prescription for prednisone and will have nurse dispense the metered- dose inhaler for him to have at home Discharge Plan Triage Chief Complaint: Cough ED Provider: Sal Fernandez Dx/Rx/DC Orders Clinical Impression: Right lower lobe pneumonia, Asthma exacerbation, Elevated blood-pressure reading without diagnosis of hypertension Instructions: ED Hypertension, To Be Confirmed, ED Pneumonia (Adult) Prescriptions: New prednisone 20 mg tablet 60 mg PO DAILY Qty: 12 0RF doxycycline monohydrate 100 mg capsule 100 mg PO BID Qty: 10 0RF No Action prednisone 20 mg tablet 40 mg PO DAILY 7 Days Qty: 14 0RF Primary Care Provider: Malachi Richardson Referrals: Malachi Richardson MD [Primary Care Provider] - 3-5 Days if not improving Activity Restrictions/Additional Instructions: 1. Is in your best interest to stop smoking. 2. 2 puffs of inhaler every 2-4 hours for the next 2 to 3 days and every 4-6 hours as needed for wheezing. 3. Take medication until gone Print Language: Egyptian Disposition Disposition: Home, Self Care
[2024-09-23 16:22] VITALS: RESP 16
[2024-09-23] MEDS: Albuterol Sulfate 8 gm Inhaler (60 puffs) 6 PUFF INHALATION (16:22)
--- NOTE | 2024-09-23 16:30 | RAD_ITS ---
PROCEDURE: CHEST PA AND LATERAL 09/23/2024 REASON FOR EXAM: PRODUCTIVE COUGH, RALES RLL AND EGOPHONY TECHNIQUE: CHEST PA AND LATERAL COMPARISON: None. FINDINGS: Lungs/Pleura: Hyperinflated lungs. No focal consolidation, pneumothorax, or pleural effusion appreciated on either side. No significant vascular congestion. Heart/Mediastinum: Normal in size. Bones/Soft tissues: Within normal limits. RAD/Chest PA and Lateral IMPRESSION: No evidence of acute pulmonary disease. Reading Location: [id number]
[2024-09-23 18:14] VITALS: BP 136/96; PULSE 89; RESP 16; TEMP 37.2; O2SAT 98
== END 2024-09-23 18:19 | disposition home or self-care (01) ==
PROVIDERS: Emergency Provider Emergency Medicine; PCP Family Medicine; Visit Provider Emergency Medicine
DX: J18.9 Pneumonia, unspecified organism (principal); J45.901 Unspecified asthma with (acute) exacerbation; R03.0 Elevated blood-pressure reading, without diagnosis of hypertension; F17.210 Nicotine dependence, cigarettes, uncomplicated
CPT/HCPCS: 71046; 87631; 99282

== ENCOUNTER 2025-02-03 00:04 | Emergency (ER) | payer MEDICAID, SELFPAY ==
[2025-02-03 00:05] VITALS: BP 173/97; PULSE 76; RESP 18; TEMP 36.1; O2SAT 98; BMI 25.1
--- NOTE | 2025-02-03 00:39 | RAD_ITS ---
PROCEDURE: CHEST PA AND LATERAL 02/03/2025 REASON FOR EXAM: COUGH TECHNIQUE: Procedure Code: RADCXR Modality: DX Procedure: CHEST PA AND LATERAL COMPARISON: 09/23/2024. FINDINGS: The lungs are emphysematous. Unchanged blunting of the costophrenic angles, probably adhesions. There is no demonstrated acute parenchymal abnormality. Normal heart and pericardium. Normal mediastinum and ami. Normal visualized pulmonary arteries. Normal visualized aortic arch and descending thoracic aorta. Normal visualized thoracic spine. Normal visualized ribs, clavicles, and shoulders. There is no demonstrated abnormality of the visualized soft tissue structures of the upper abdomen. RAD/Chest PA and Lateral IMPRESSION: Unchanged pulmonary emphysema. No radiographic evidence of an acute abnormality. Reading Location: [facility]
--- OUTSIDE RECORDS SUMMARY | 2025-02-03 01:02 | XMS RPT_ITS | CCD ---
Author Organization [facility] Care Team Providers Care Visual Specialist Name Role Phone Juju Richardson MD Primary Care Provider DESHAWN JOAQUIN Attending Unavailable JUJU RICHARDSON Primary Care Unavailable Juju Richardson MD Primary Care Provider [employer]IC[employer] SUPERVISOR.Danelle ROMANO Unavailable [place] H[employer]IC[employer] SERVICES SUPERVISOR.Karen ROMANO Unavailable KAREN HAIRSTON Referring Unavailable JUJU RICHARDSON Primary Care Unavailab KAREN Baldwin Attending Unavailable JUJU RICHARDSON Primary Care Unavailab JUJU Henry Primary Care Unavailab ada Hairston HORTICULTURAL SERVICES SUPERVISOR.Karen ROMANO Unavailable Dr. Malachi Richardson MD Primary Care Provider Dr. Sal Fernandez MD Emergency Provider Malachi Richardson Primary Care Unavailable Sal Fernandez Attending Unavailable Malachi Richardson Primary Care Unavailable Vikas Quan Attending Unavailable Medications Current Medications Medication Drug Class(es) Dates Sig (Normalized) Sig (Original) [id number] 200 actuat albuterol 0.09 mg/actuat metered dose inhaler (20 sources) beta2-Adrenergic Agonist Start: 10-02-2024 take 2 puff(s) by inhalation every four hours as needed albuterol HFA (VENTOLIN HFA) 90 mcg/actuation inhaler Indications: Uncomplicated asthma, unspecified asthma severity, unspecified whether persistent (HCC) Inhale 2 puffs as instructed every 4 hours as needed. 18 g 10/02/2024 Active Start: 07-10-2023 End: 10-01-2024 take 2 puff(s) by inhalation every four hours as needed albuterol HFA (VENTOLIN HFA) 90 mcg/actuation inhaler Indications: Uncomplicated asthma, unspecified asthma severity, unspecified whether persistent (HCC) Inhale 2 puffs as instructed every 4 hours as needed. 18 g 08/23/2024 10/01/2024 Discontinued Start: 05-03-2023 End: 07-07-2023 take 2 puff(s) by inhalation every four hours as needed albuterol HFA (VENTOLIN HFA) 90 mcg/actuation inhaler Indications: Uncomplicated asthma, unspecified asthma severity, unspecified whether persistent Inhale 2 Puffs as instructed every 4 hours as needed. 18 g 1 05/03/2023 07/07/2023 Discontinued Start: 06-24-2022 End: 01-20-2023 take 2 puff(s) by inhalation every four hours as needed albuterol HFA (VENTOLIN HFA) 90 mcg/actuation inhaler Indications: Uncomplicated asthma, unspecified asthma severity, unspecified whether persistent Inhale 2 Puffs as instructed every 4 hours as needed. 18 g 3 01/20/2023 Active Start: 10-19-2020 End: 12-11-2023 take 2.5 mg by inhalation every four hours as needed albuterol (PROVENTIL) 2.5 mg /3 mL (0.083 %) nebulizer solution Use 3 mL via nebulizer every 4 hours as needed for wheezing/shortness of breath. Use over 5-15minutes. 180 mL 12/12/2023 Active Start: 09-26-2020 End: 08-10-2023 Albuterol Sulfate 90 mcg/act uation HFA aerosol inhaler Discontinued 2 NMA INHALATION Q4H as needed for Shortness Of Breath Or Wheezing September 26, 2020 12:00am August 10, 2023 9:45pm Start: 09-23-2020 End: 05-23-2022 take 2 puff(s) by inhalation every four hours as needed albuterol HFA (VENTOLIN HFA) 90 mcg/actuation inhaler Indications: Uncomplicated asthma, unspecified asthma severity, unspecified whether persistent Inhale 2 Puffs as instructed every 4 hours as needed. 18 g 3 10/05/2021 02/22/2022 Discontinued Comment on above: Use 3 mL via nebuliz er every 4 hours as needed for wheezing/shortness of breath. Use over 5-15minutes. Inhale 2 Puffs as in structed every 4 hours as needed. cephalexin 500 mg oral capsule (1 source) Cephalosporin Antibacterial Start: 08-16-19 End: 08-23-19 take 1 capsule by mouth three times daily cephALEXin (KEFLEX) 500 mg capsule Indications: Rash Take 1 capsule by mouth three times daily for 7 days. 21 capsule 0 08/15/2022 08/22/2022 Active Comment on above: Take 1 capsule by [facility] three times daily for 7 days. doxycycline monohydrate 100 mg oral capsule (1 source) Tetracycline-class Drug Start: 09-24-19 take 1 capsule by mouth twice daily Doxycycline Monohydrate 100 mg capsule Active 100 mg PO TWICE A DAY September 23, 2024 12:00am predniSONE 20 mg oral tablet (3 sources) Start: 09-24-19 take 3 tablets by mouth once daily Prednisone 20 mg tablet Active 60 mg PO DAILY September 23, 2024 12:00am Start: 03-14-2024 End: 03-19-2024 take 5 tablets by mouth once daily, then take 4 tablets by mouth once daily, then take 3 tablets by mouth once daily, then take 2 tablets by mouth once daily, then take 1 tablet by mouth once daily predniSONE (DELTASONE) 10 mg tablet Indications: Uncomplicated asthma, unspecified asthma severity, unspecified whether persistent Take 5 tablets by mouth once daily for 1 day, THEN 4 tablets once daily for 1 day, THEN 3 tablets once daily for 1 day, THEN 2 tablets once daily for 1 day, THEN 1 tablet once daily for 1 day. 15 tablet 03/14/2024 03/19/2024 Active Start: 08-10-2023 take 2 tablets by [facility] once daily Prednisone 20 mg tablet Active 40 mg PO DAILY 14 7 August 10, 2023 12:00am Completed/Discontinued Medications Medication Drug Class(es) Dates Sig (Normalized) Sig (Original) 12 hr buPROPion hydrochloride 150 mg extended release oral tablet (2 sources) Aminoketone Start: 01-22-2021 End: 08-12-2021 buPROPion SR (WELLBUTRIN SR) 150 mg 12 hr tablet Indications: Tobacco use Take one tablet daily for three days then increase to one tablet twice a day 180 tablet 1 01/22/2021 08/12/2021 Discontinued Comment on above: Take one tablet kirill y for three days then increase to one tablet twice a day calcium chloride 0.0014 meq/ml / potassium chloride 0.004 meq/ml / sodium chloride 0.103 meq/ml / sodium lactate 0.028 meq/ml injectable solution (2 sources) Start: 08-12-2023 End: 08-12-2023 1,000 mL, IntraVENous, at 1,000 mL/hr, Administer over 1 Hours, Once, On 08/12/23 at 0010, For 1 dose cetirizine hydrochloride 5 mg oral tablet (20 sources) Histamine-1 Receptor Antagonist Start: 12-20-2019 End: 03-14-2024 take 1 tablet by mouth once daily cetirizine (ZYRTEC) 5 mg tablet Indications: Uncomplicated asthma, unspecified asthma severity, unspecified whether persistent Take 1 tablet by mouth once daily. 30 tablet 5 08/03/2021 03/14/2024 Discontinued Comment on above: Take 1 tablet by [facility] once daily. 12 hr dextromethorphan hydrobromide 30 mg / guaiFENesin 600 mg extended release oral tablet (2 sources) Uncompetitive E-lpapww-I-aspartat e Receptor Antagonist, Sigma-1 Agonist Start: 02-16-2021 End: 08-12-2021 take 1 tablet by mouth twice daily dextromethorphan-g uaiFENesin (MUCINEX DM) 30-600 mg per tablet Take 1 tablet by mouth twice daily. 24 tablet 0 02/16/2021 08/12/2021 Discontinued Comment on above: Take 1 tablet by lanny twice daily. FLUoxetine 10 mg oral capsule (20 sources) Serotonin Reuptake Inhibitor Start: 05-11-2022 End: 05-09-2024 take 1 capsule by mouth once daily FLUoxetine (PROZAC) 10 mg capsule Indications: HONEY (generalized anxiety disorder) Take 1 capsule by mouth once daily. 30 capsule 1 05/11/2022 05/09/2024 Discontinued Comment on above: Take 1 capsule by mo [facility] once daily. fluticasone propionate 0.05 mg/actuat metered dose nasal spray (20 sources) Corticosteroid Start: 12-20-2019 End: 03-14-2024 take 2 spray(s) by mouth once daily fluticasone (FLONASE) 50 mcg/actuation nasal spray Indications: Uncomplicated asthma, unspecified asthma severity, unspecified whether persistent Use 2 Sprays in each nostril once daily. Rinse mouth after use. 1 Each 2 08/12/2021 03/14/2024 Discontinued Comment on above: Use 2 Sprays in each nostril once daily. Rinse mouth after use. nicotine 4 mg chewing gum (2 sources) Cholinergic Nicotinic Agonist Start: 09-03-2019 End: 10-29-2020 nicotine polacrilex (NICORETTE) 4 mg gum Take 1 by mouth every 2 hours as needed. 50 Each 2 09/03/2019 10/29/2020 Discontinued Start: 03-13-2019 End: 10-15-2020 take 1 dose by mouth every two hours as needed nicotine polacrilex (NICORETTE) 2 mg gum Indications: Tobacco use Take 1 Each by mouth every 2 hours as needed. 50 Each 2 03/13/2019 10/15/2020 Discontinued 2 ml ondansetron 2 mg/ml injection (3 sources) Serotonin-3 Receptor Antagonist Start: 08-12-2023 End: 08-12-2023 4 mg, IntraVENous, Once, On 08/12/23 at 0010, For 1 dose Start: 09-06-2022 End: 08-10-2023 take 1 tablet by mouth every eight hours as needed for nausea Ondansetron 4 mg tablet,disintegrating Discontinued 4 mg PO EVERY 8 HOURS NEEDED as needed for Nausea 10 0 September 06, 2022 12:00am August 10, 2023 9:45pm sertraline 25 mg oral tablet (1 source) Serotonin Reuptake Inhibitor Start: 05-11-2022 End: 05-11-2022 take 1 tablet by mouth once daily sertraline (ZOLOFT) 25 mg tablet Take 1 tablet by mouth once daily. 30 tablet 1 05/11/2022 05/11/2022 Discontinued Comment on above: Take 1 tablet by mouth once daily. sildenafil 100 mg oral tablet (20 sources) Phosphodiesterase 5 Inhibitor Start: 12-26-2022 End: 03-14-2024 sildenafil (VIAGRA) 100 mg tablet Indications: Erectile dysfunction, unspecified erectile dysfunction type Take 1 tablet by mouth as needed (prior to sexual intercourse). 12 tablet 12/26/2022 03/14/2024 Discontinued Start: 06-24-2022 End: 12-23-2022 sildenafil (VIAGRA) 100 mg t ablet Indications: Erectile dysfunction, unspecified erectile dysfunction type Take 1 tablet by mouth as needed (prior to sexual intercourse). 12 tablet 0 11/22/2022 12/23/2022 Discontinued Start: 04-13-2022 End: 05-11-2022 sildenafil (VIAGRA) 100 mg t ablet Indications: Erectile dysfunction, unspecified erectile dysfunction type Take 1 tablet by mouth as needed (prior to sexual intercourse). 12 tablet 0 05/11/2022 Active Start: 02-21-2022 End: 04-12-2022 sildenafil (VIAGRA) 50 mg ta blet Take 1 tablet by mouth as needed (prior to sexual intercourse). 12 tablet 0 02/21/2022 03/15/2022 Discontinued Start: 08-12-2021 End: 02-19-2022 sildenafil (VIAGRA) 50 mg ta blet Take 1 tablet by mouth as needed (prior to sexual intercourse). 12 tablet 0 10/27/2021 02/19/2022 Discontinued Comment on above: Take 1 tablet by lanny th as needed (prior to sexual intercourse). varenicline 1 mg oral tablet (1 source) Partial Cholinergic Nicotinic Agonist Start: End: take 1 tablet by mouth twice daily varenicline (CHANTIX CONTINUING MONTH BOX) 1 mg tablet Take 1 tablet by mouth twice daily. 60 tablet 2 07/22/2020 10/15/2020 Discontinued Problems Active Problems Problem Classification Problem Date Documented Date Episodic/Chronic Abdominal pain (1 source) Abdominal pain; Translations: [Unspecified abdominal pain] 09-14-2022 Episodic Alcohol-related disorders (4 sources) Alcohol intoxication; Translations: [Alcohol use, unspecified with intoxication, uncomplicated] Onset: 08-12-2023 08-12-2023 Episodic Allergic reactions (2 sources) Contact dermatitis due to poison rubina; Translations: [Allergic contact dermatitis due to plants, except food] 08-18-2023 Episodic Anxiety disorders (1 source) Generalized anxiety disorder; Translations: [Generalized anxiety disorder] Chronic Asthma (20 sources) Uncomplicated asthma; Translations: [Unspecified asthma, uncomplicated] Onset: 06-21-2016 Chronic Nausea and vomiting (1 source) Nausea, vomiting and diarrhea; Translations: [Nausea with vomiting, unspecified] 09-14-2022 Episodic Noninfectious gastroenteritis (2 sources) Gastroenteritis; Translations: [Noninfective gastroenteritis and colitis, unspecified] Episodic Nonspecific chest pain (1 source) Chest pain; Translations: [Chest pain, unspecified] 05-04-2018 Episodic Other lower respiratory disease (1 source) Cough; Translations: [Cough] 10-15-2020 Episodic Other male genital disorders (6 sources) Male erectile dysfunction, unspecified; Translations: [Impotence of organic origin] Chronic Other male genital disorders (4 sources) Bilateral testicular pain; Translations: [Right testicular pain] 05-09-2024 Episodic Other male genital disorders (1 source) Testicular mass; Translations: [Other specified disorders of the male genital organs] 05-09-2024 Episodic Other male genital disorders (1 source) Right testicular pain; Translations: [Pain in both testicles] Onset: 05-10-2024 Episodic Other male genital disorders (1 source) Left testicular pain; Translations: [Pain in both testicles] Onset: 05-10-2024 Episodic Other screening for suspected conditions (not mental disorders or infectious disease) (6 sources) Patient encounter status; Translations: [Encounter for screening for lipoid disorders] Episodic Pneumonia (except that caused by tuberculosis or sexually transmitted disease) (1 source) Right lower zone pneumonia; Translations: [Pneumonia, unspecified organism] 09-23-2024 Episodic Residual codes; unclassified (20 sources) Tobacco use and exposure - finding; Translations: [Tobacco use] 11-06-2018 Episodic Substance-related disorders (1 source) Smoker; Translations: [Nicotine dependence, unspecified, uncomplicated] Chronic Unclassified (1 source) Cough, unspecified; Translations: [Cough, unspecified] Onset: 09-27-2024 Viral infection (2 sources) Viral disease; Translations: [Viral infection, unspecified] 11-14-2022 Episodic Past or Other Problems Problem Classification Problem Date Documented Da te Episodic/Chronic Fever of unknown origin (2 sources) Fever; Translations: [Fever, unspecified] Onset: 11-29-2023 09-26-2020 Episodic Lymphadenitis (20 sources) Axillary lymphadenopathy; Translations: [Localized enlarged lymph nodes] Onset: 11-06-2018 11-06-2018 Episodic Other circulatory disease (20 sources) Elevated blood-pressure reading without diagnosis of hypertension; Translations: [Elevated blood-pressure reading, without diagnosis of hypertension] Onset: 11-06-2018 11-06-2018 Episodic Results Test Name Value Interpretation Reference Range Facility Chest PA and Lateralon 09-23 Chest PA and Lateral [facility] Imaging Services [address] [place] [address] Chest PA and Lateral MR#: [id number] Acct: [id number] Name: NIKOLAS MORALES Rep #: [id number] : 1980 M 44 From: Chino Marquez MD PCP: Dr. Malachi Richardson MD Status: REG ER Study: Chest PA and Lateral Date of Exam: 09/23/24 Exam# [id number] Ordering Dr: Sal Fernandez MD PROCEDURE: CHEST PA AND LATERAL 09/23/2024 REASON FOR EXAM: PRODUCTIVE COUGH, RALES RLL AND EGOPHONY TECHNIQUE: CHEST PA AND LATERAL COMPARISON: None. FINDINGS: Lungs/Pleura: Hyperinflated lungs. No focal consolidation, pneumothorax, or pleural effusion appreciated on either side. No significant vascular congestion. Heart/Mediastinum: Normal in size. Bones/Soft tissues: Within normal limits. RAD/Chest PA and Lateral IMPRESSION: No evidence of acute pulmonary disease. Reading Location: [id number] CC: Dr. Malachi Richardson MD; Dr. Sal Fernandez MD Tanbark Peeler: Signed Normal [facility] Emergency Department Summary on 09-23-2024 Emergency Department Summary [facility] Medical Records Department [address] [place] [address] Emergency Department Summary 09/23/24 MR#: [id number] Acct: [id number] Name: NIKOLAS MORALES Rep #: [id number] : 1980 44 From: Sal Fernandez MD PCP: Dr. Malachi Richardson MD Status:REG ER Location: ED HPI HPI - URI History of Present Illness Chief Complaint: Cough Detail of Chief Complaint: Upper respiratory infectious symptoms that started Monday Informant: patient Onset/Context/Timing Onset: Days Context: Sudden Onset Timing: Continuous Quality: Dyspnea, intermittent wheezing, congestion and productive cough Location: Respiratory Current Severity: Mild Maximum Severity: Moderate Worsened by: - (Activity); Not Worsened By Swallowing, Eating Solids or Drinking Liquids Relieved by: Not Relieved By Tylenol or NSAIDs Associated Symptoms Associated Symptoms: Positive for Nasal Congestion, Myalgias, Diarrhea (Mushy stools.), Shortness of Breath and Productive Cough (White to white-yellow.); Negative for Headache, Sinus Pressure, Nausea, Vomiting, Chest Pain, Nonproductive cough or Hemoptysis Narrative Narrative: Patient is a 44-year-old male. He is a smoker of 1 pack/day since age of 18. He states he has been out of his inhaler since last week. He complains of subjective fever, sweats, myalgias arthralgias. He also endorses congestion and a productive cough of white to white yellow-colored sputum. He denies abdominal pain, nausea or vomiting. He has had several mushy stools. He has had no exposure to anyone to his knowledge with COVID. He denies urologic symptoms. He denies rash. Prior similar symptoms: Yes Recent Illness/Hospitalizat ion: No ROS ROS ED Constitutional Constitutional ED: Reports chills, fever(s), subjective and sweats; Denies weight loss Eyes Eyes: Denies blurry vision, change in vision or diplopia ENT ENT ED: Reports rhinorrhea; Denies ear pain or sore throat Cardiovascular Cardiovascular: Denies chest pain, orthopnea, palpitations or paroxysmal nocturnal dyspnea Respiratory/Chest Respiratory/Chest: Reports cough, dyspnea, sputum and other Details: He also endorses intermittent wheezing. ; Denies dyspnea on exertion, orthopnea or paroxysmal nocturnal dyspnea Gastrointestinal Gastrointestinal: Denies abdominal pain, constipation, nausea or vomiting Musculoskeletal Musculoskeletal: Reports arthralgias and myalgias Integumentary Denies rash Neurologic Neurologic: Reports weakness; Denies headache(s) or paresthesias Hematologic/Lymphati c Hematologic/Lymphati c: Denies easy bleeding or easy bruising [facility] Medical History Asthma Home Medications ???Medication ???Instructions ???Recorded ???Last Taken ???Type prednisone 20 mg tablet 40 mg (2 x 20 mg) PO DAILY 7 days 08/10/23 Unknown Rx #14 tabs doxycycline monohydrate 100 mg 100 mg PO BID #10 CAPSULES 5 Unknown Rx capsule prednisone 20 mg tablet 60 mg (3 x 20 mg) PO DAILY #12 Unknown Rx TABLETS Allergy/AdvReac Type Severity Reaction Status Date / Time No Known Allergies Allergy Verified 09/23/24 14:23 Social History Smoking Status: Current every day smoker tobacco type: cigarettes substance use type: does not use EXAM Physical Exam Const Vital Signs: 09/23/24 14:22 09/23/24 16:22 09/23/24 16:24 Temperature 98.9 F Temperature Source Temporal Pulse Rate 97 Respiratory Rate 14 16 Respiratory Effort Normal Non-Labored Respiratory Depth Normal Respiratory Pattern Normal Blood Pressure 136/96 H Blood Pressure Mean 109 Pulse Ox 98 Oxygen Delivery Method Room Air Room Air Positive well nourished and well developed Constitutional Narrative: Patient does not appear well. Does not appear toxic either. His blood pressure is elevated. General Appearance ED: well developed; Negative for cyanotic, diaphoretic or pallor HEENT Reports moist mucous membranes HEENT Narrative: Head is atraumatic normocephalic. Ears normal. Nares patent with clear drainage. Posterior pharynx is normal. Eyes PERRL and EOMs intact bilaterally General Eye ED: Negative for pale conjunctiva or scleral icterus Neck no lymphadenopathy, supple, no meningeal signs and no JVD Resp normal respiratory effort and No clear to auscultation bilaterally Resp Narrative: Rales right lower lobe with egophony. There is wheezing noted that scattered on expiration with forced expiration. Cardio S1 normal heart sound, S2 normal heart sound and no murmurs Rate: regular rate GI non-tender, non-distended and no masses Extremity normal to inspection and full ROM Extremity Narrative: There is no clubbing, cyanosis or mottli (more content not included)... Normal [facility] Influenza virus A and B and SARS-CoV-2 (COVID-19) and Respiratory syncytial virus RNAOrdered By: Sal Fernandez on 09-23-2024 SARS-CoV-2 (COVID-19) RNA VIOLETTE+probe Ql (Unsp spec) [facility] M100.678on 09-23-2024 M100.678 Pending SARS-CoV-2 (COVID 19) Negative INFLUENZA A Negative INFLUENZA B Negative RSV PCR Negative Normal [facility] Comment on above: Performed By: #### M 100.678 #### [facility] [address] [place], [address] CNPNon [facility] NIKOLAS MORALES ([id number]) 1980 M Date Time Provider Department 05/10/24 JUJU RICHARDSON [facility] During your visit today, we recorded the following information about you: Tori Ferrer RN 05/10/2024 4:52 PM Signed Patient asking if provider can advise him on his recent US results, when able. Tori Ferrer RN Allergies As of Date: 05/10/2024 (No Known Allergies) Date Reviewed: 05/09/2024 Reviewed by: Makayla Clarke MA - Fully Assessed Reason for Visit: Results [95] Prescriptions as of 05/13/2024 - albuterol HFA (VENTOLIN HFA) 90 mcg/actuation inhaler Inhale 2 Puffs as instructed every 4 hours as needed. - albuterol (PROVENTIL) 2.5 mg /3 mL (0.083 %) nebulizer solution Use 3 mL via nebulizer every 4 hours as needed for wheezing/shortness of breath. Use over 5-15minutes. Problem List As Of Date 05/10/2024 Noted Resolved Mild intermittent asthma without complication [*06/21/2016 Tobacco use [Z72.0] Asthma [J45.909] Lymphadenopathy, axillary [R59.0] 11/06/2018 Elevated BP without diagnosis of hypertension [*11/06/2018 Encounter Status:Closed by KAREN HAIRSTON on 05/13/24 Normal [facility] No Panel Informationon 05-10 IMPRESSION: Bilateral epididymal cysts. Bilateral small hydroceles. Left varicocele. Tanbark Peeler: MARVA Transcribe Date/Time: May 10 2024 2:28P Dictated by : BALAJI NEVAREZ MD This examination was interpreted and the report reviewed and electronically signed by: BALAJI NEVAREZ MD on May 10 2024 2:46PM [facility] DIVISION OF RADIOLOGY No Panel InformationOrdered By: [facility] Provider on 05-10-2024 [place] US DOPPLER COMPLETEon 2024 US DOPPLER COMPLETE * * *Final Report* * * DATE OF EXAM: May 10 2024 1:56PM [facility] 1033 - US DOPPLER COMPLETE / PROCEDURE REASON: multiple diagnoses * * * * Physician Interpretation * * * * EXAMINATION: SCROTAL ULTRASOUND WITH DOPPLER IMAGING CLINICAL HISTORY: Pain in both testicles Pain in both testicles TECHNIQUE: Sonography of the scrotal contents with color flow and spectral Doppler imaging of the testicular vasculature was performed. Images were obtained and stored in a permanent archive. M: USC_2 COMPARISON: None RESULT: RIGHT SCROTUM: Right testis: 4.5 x 2.5 x 3.5 cm. Homogeneous with no calcifications or mass. Normal intratesticular arterial and venous flow with normal spectral waveforms. There is a 3 x 3 x 3 mm scrotal lucretia. Epididymis: A 3 x 2 mm tiny cyst noted in the epididymal head. Vascular flow on Color Doppler is symmetric to the contralateral side. Hydrocele: Small present Varicocele: absent LEFT SCROTUM: Left testis: 4.4 x 2.5 x 3.4 cm. Homogeneous with no calcifications or mass. Normal intratesticular arterial and venous flow with normal spectral waveforms. Epididymis: A 1.5 x 0.5 x 0.9 cm cyst in the epididymal body. Vascular flow on Color Doppler is symmetric to the contralateral side. Hydrocele: Small present Varicocele: present IMPRESSION: Bilateral epididymal cysts. Bilateral small hydroceles. Left varicocele. Tanbark Peeler: MARVA Transcribe Date/Time: May 10 2024 2:28P Dictated by : BALAJI NEVAREZ MD This examination was interpreted and the report reviewed and electronically signed by: BALAJI NEVAREZ MD on May 10 2024 2:46PM EST [id number] Normal [facility] US SCROTUM AND CONTENTSon US SCROTUM AND CONTENTS * * *Final Repor t* * * DATE OF EXAM: May 10 2024 1:56PM [facility] 1063 - US SCROTUM AND CONTENTS / PROCEDURE REASON: multiple diagnoses * * * * Physician Interpretation * * * * EXAMINATION: SCROTAL ULTRASOUND WITH DOPPLER IMAGING CLINICAL HISTORY: Pain in both testicles Pain in both testicles TECHNIQUE: Sonography of the scrotal contents with color flow and spectral Doppler imaging of the testicular vasculature was performed. Images were obtained and stored in a permanent archive. M: USC_2 COMPARISON: None RESULT: RIGHT SCROTUM: Right testis: 4.5 x 2.5 x 3.5 cm. Homogeneous with no calcifications or mass. Normal intratesticular arterial and venous flow with normal spectral waveforms. There is a 3 x 3 x 3 mm scrotal lucretia. Epididymis: A 3 x 2 mm tiny cyst noted in the epididymal head. Vascular flow on Color Doppler is symmetric to the contralateral side. Hydrocele: Small present Varicocele: absent LEFT SCROTUM: Left testis: 4.4 x 2.5 x 3.4 cm. Homogeneous with no calcifications or mass. Normal intratesticular arterial and venous flow with normal spectral waveforms. Epididymis: A 1.5 x 0.5 x 0.9 cm cyst in the epididymal body. Vascular flow on Color Doppler is symmetric to the contralateral side. Hydrocele: Small present Varicocele: present IMPRESSION: Bilateral epididymal cysts. Bilateral small hydroceles. Left varicocele. Tanbark Peeler: PSCB Transcribe Date/Time: May 10 2024 2:28P Dictated by : BALAJI NEVAREZ MD This examination was interpreted and the report reviewed and electronically signed by: BALAJI NEVAREZ MD on May 10 2024 2:46PM EST [id number] Normal [facility] US.doppler Scrotum and testi brendan 05-10-2024 * * *Final Report* * * DATE OF EXAM: May 10 2024 1:56PM [facility] 1063 - US SCROTUM AND CONTENTS / PROCEDURE REASON: multiple diagnoses * * * * Physician Interpretation * * * * EXAMINATION: SCROTAL ULTRASOUND WITH DOPPLER IMAGING CLINICAL HISTORY: Pain in both testicles Pain in both testicles TECHNIQUE: Sonography of the scrotal contents with color flow and spectral Doppler imaging of the testicular vasculature was performed. Images were obtained and stored in a permanent archive. M: USC_2 COMPARISON: None RESULT: RIGHT SCROTUM: Right testis: 4.5 x 2.5 x 3.5 cm. Homogeneous with no calcifications or mass. Normal intratesticular arterial and venous flow with normal spectral waveforms. There is a 3 x 3 x 3 mm scrotal lucretia. Epididymis: A 3 x 2 mm tiny cyst noted in the epididymal head. Vascular flow on Color Doppler is symmetric to the contralateral side. Hydrocele: Small present Varicocele: absent LEFT SCROTUM: Left testis: 4.4 x 2.5 x 3.4 cm. Homogeneous with no calcifications or mass. Normal intratesticular arterial and venous flow with normal spectral waveforms. Epididymis: A 1.5 x 0.5 x 0.9 cm cyst in the epididymal body. Vascular flow on Color Doppler is symmetric to the contralateral side. Hydrocele: Small present Varicocele: present DIVISION OF RADIOLOGY Provider, [facility] Elaine - 05/10/2024 * * *Final Report* * * DATE OF EXAM: May 10 2024 1:56PM [facility] 1063 - SCROTUM AND CONTENTS / PROCEDURE REASON: multiple diagnoses * * * * Physician Interpretation * * * * EXAMINATION: SCROTAL ULTRASOUND WITH DOPPLER IMAGING CLINICAL HISTORY: Pain in both testicles Pain in both testicles TECHNIQUE: Sonography of the scrotal contents with color flow and spectral Doppler imaging of the testicular vasculature was performed. Images were obtained and stored in a permanent archive. M: USC_2 COMPARISON: None RESULT: RIGHT SCROTUM: Right testis: 4.5 x 2.5 x 3.5 cm. Homogeneous with no calcifications or mass. Normal intratesticular arterial and venous flow with normal spectral waveforms. There is a 3 x 3 x 3 mm scrotal lucretia. Epididymis: A 3 x 2 mm tiny cyst noted in the epididymal head. Vascular flow on Color Doppler is symmetric to the contralateral side. Hydrocele: Small present Varicocele: absent LEFT SCROTUM: Left testis: 4.4 x 2.5 x 3.4 cm. Homogeneous with no calcifications or mass. Normal intratesticular arterial and venous flow with normal spectral waveforms. Epididymis: A 1.5 x 0.5 x 0.9 cm cyst in the epididymal body. Vascular flow on Color Doppler is symmetric to the contralateral side. Hydrocele: Small present Varicocele: present IMPRESSION IMPRESSION: Bilateral epididymal cysts. Bilateral small hydroceles. Left varicocele. Tanbark Peeler: PSCB Transcribe Date/Time: May 10 2024 2:28P Dictated by : BALAJI NEVAREZ MD This examination was interpreted and the report reviewed and electronically signed by: BALAJI NEVAREZ MD on May 10 2024 2:46PM EST [place] [facility] Study observation (narrative) [facility] US.doppler Unspecified body regionon 05-10-2024 * * *Final Report* * * DATE OF EXAM: May 10 2024 1:56PM [facility] 1033 - US DOPPLER COMPLETE / PROCEDURE REASON: multiple diagnoses * * * * Physician Interpretation * * * * EXAMINATION: SCROTAL ULTRASOUND WITH DOPPLER IMAGING CLINICAL HISTORY: Pain in both testicles Pain in both testicles TECHNIQUE: Sonography of the scrotal contents with color flow and spectral Doppler imaging of the testicular vasculature was performed. Images were obtained and stored in a permanent archive. M: USC_2 COMPARISON: None RESULT: RIGHT SCROTUM: Right testis: 4.5 x 2.5 x 3.5 cm. Homogeneous with no calcifications or mass. Normal intratesticular arterial and venous flow with normal spectral waveforms. There is a 3 x 3 x 3 mm scrotal lucretia. Epididymis: A 3 x 2 mm tiny cyst noted in the epididymal head. Vascular flow on Color Doppler is symmetric to the contralateral side. Hydrocele: Small present Varicocele: absent LEFT SCROTUM: Left testis: 4.4 x 2.5 x 3.4 cm. Homogeneous with no calcifications or mass. Normal intratesticular arterial and venous flow with normal spectral waveforms. Epididymis: A 1.5 x 0.5 x 0.9 cm cyst in the epididymal body. Vascular flow on Color Doppler is symmetric to the contralateral side. Hydrocele: Small present Varicocele: present DIVISION OF RADIOLOGY Provider, [facility] Elaine - 05/10/2024 * * *Final Report* * * DATE OF EXAM: May 10 2024 1:56PM [facility] 1033 - US DOPPLER COMPLETE / PROCEDURE REASON: multiple diagnoses * * * * Physician Interpretation * * * * EXAMINATION: SCROTAL ULTRASOUND WITH DOPPLER IMAGING CLINICAL HISTORY: Pain in both testicles Pain in both testicles TECHNIQUE: Sonography of the scrotal contents with color flow and spectral Doppler imaging of the testicular vasculature was performed. Images were obtained and stored in a permanent archive. M: USC_2 COMPARISON: None RESULT: RIGHT SCROTUM: Right testis: 4.5 x 2.5 x 3.5 cm. Homogeneous with no calcifications or mass. Normal intratesticular arterial and venous flow with normal spectral waveforms. There is a 3 x 3 x 3 mm scrotal lucretia. Epididymis: A 3 x 2 mm tiny cyst noted in the epididymal head. Vascular flow on Color Doppler is symmetric to the contralateral side. Hydrocele: Small present Varicocele: absent LEFT SCROTUM: Left testis: 4.4 x 2.5 x 3.4 cm. Homogeneous with no calcifications or mass. Normal intratesticular arterial and venous flow with normal spectral waveforms. Epididymis: A 1.5 x 0.5 x 0.9 cm cyst in the epididymal body. Vascular flow on Color Doppler is symmetric to the contralateral side. Hydrocele: Small present Varicocele: present IMPRESSION IMPRESSION: Bilateral epididymal cysts. Bilateral small hydroceles. Left varicocele. Tanbark Peeler: MARVA Transcribe Date/Time: May 10 2024 2:28P Dictated by : BALAJI NEVAREZ MD This examination was interpreted and the report reviewed and electronically signed by: BALAJI NEVAREZ MD on May 10 2024 2:46PM [facility] Radiology Study observation (narrative) [facility] CNOVon 05-09-2024 CNOV Office Visit (FAMPWS) NIKOLAS MORALES ([id number]) 1980 M Date Time Provider Department 05/09/24 6:40 PM KAREN HAIRSTON During your visit today, we recorded the following information about you: Pulse Blood pressure Weight 80/minute 145/79 81 kg Karen Hairston APRN.CNP 05/09/2024 7:00 PM Signed Chief Complaint Patient presents with: Physical HPI Nikolas Morales is a 43 year old male who presents here today for Above Complaints.. Patient presents for annual physical. Patient reports he has a lump on his left testicle x4 days. Patient not currently taking any medications and reports he will be starting counseling soon. Past medical history, appointments, medications, allergies reviewed. Previous Medical History PAST MEDICAL HISTORY Diagnosis Date Asthma Erectile dysfunction Generalized anxiety disorder Marijuana use Tobacco use Previous Surgical History PAST SURGICAL HISTORY Procedure Laterality Date EXTRACTION, ERUPTED TOOTH OR EXPOSED ROOT (ELEVATION AND/OR FORCEPS REMOVAL) Seminary teeth extraction Family History FAMILY HISTORY Problem Relation Age of Onset Asthma Mother Bipolar disorder Mother other (htn) Father Diabetes Paternal Grandmother other (htn) Paternal Grandmother Bipolar disorder Maternal Aunt Bipolar disorder Paternal Aunt Patient Allergies ALLERGIES No Known Allergies Current Medications Current Outpatient Medications on File Prior to Visit Medication Sig albuterol HFA (VENTOLIN HFA) 90 mcg/actuation inhaler Inhale 2 Puffs as instructed every 4 hours as needed. albuterol (PROVENTIL) 2.5 mg /3 mL (0.083 %) nebulizer solution Use 3 mL via nebulizer every 4 hours as needed for wheezing/shortness of breath. Use over 5-15minutes. (Patient not taking: Reported on 03/14/2024) FLUoxetine (PROZAC) 10 mg capsule Take 1 capsule by mouth once daily. No current facility-administere d medications on file prior to visit. Social History Social History Tobacco Use Smoking status: Every Day Current packs/day: 1.00 Average packs/day: 1 pack/day for 20.0 years (20.0 ttl pk-yrs) Types: Cigarettes Smokeless tobacco: Never Substance Use Topics Alcohol use: Yes Comment: rare Drug use: Yes Frequency: 1.0 times per week Types: Marijuana Review of Symptoms REVIEW OF SYSTEMS SEE HPI EXAM: BP 145/79 Pulse 80 Wt 81 kg (178 lb 9.2 oz) BMI 24.73 kg/m? General Appearance: Well appearing, alert, in no acute distress, well-hydrated, well nourished.. Skin: Skin color, texture, turgor normal, no suspicious rashes or lesions. Neck: Supple, no adenopathy; thyroid symmetric, normal size, no bruits. Lungs: Lungs clear to auscultation. No wheezing, rhonchi, rales.. Heart: RRR without murmur, gallop, or rubs. No ectopy. Abdomen: Normal abdominal exam, Abdomen soft, non-tender. Bowel sounds normal. No masses, organomegaly. Musculoskeletal: No joint swelling, deformity, or tenderness. Peripheral Pulses: Normal. Neurologic: Gait normal. Reflexes normal and symmetric. Sensation grossly intact.. Genitalia: Normal, Penis normal. No urethral discharge. Scrotum normal to palpation. No hernia. Tender with palpation. Health Maintenance List Depression Screening Never done Anxiety Screening Never done Hepatitis B Vaccine(1 of 3 - 19+ 3-dose series) Never done Pneumococcal Vaccine(2 of 2 - PCV) due on 11/07/2019 Annual PCP Team Chronic Disease Visit due on 05/12/2023 Influenza Vaccine(1) due on 10/08/2023 Covid-19 Vaccine( - 2023- season) Never done Lipid Screening due on 12/23/2024 DTaP,Tdap,Td Vaccine(2 - Td or Tdap) due on 12/19/2029 Spirometry Completed Hepatitis C Screening Completed HIV Screening Completed ASSESSMENT/PLAN: 1. Screening for hyperlipidemia - ICD9: V77.91, ICD10: Z13.220 (primary diagnosis) - LIPID PANEL, NONFASTING 2. Routine physical examination - ICD9: V70.0, ICD10: Z00.00 - Counseled on healthy diet and regular exercise - Discussed need for and benefit of weight loss. BMI 24.73 kg/(m2) - Smoking cessation encouraged; discussed health risks and quitting strategies. Patient is not ready to quit - Patient counseled on and acknowledged vaccine benefits/risks/side effects; VIS provided: Pneumococcal - Follow up for annual exam in one year - COMPLETE BLOOD COUNT AND DIFFERENTIAL - COMPREHENSIVE METABOLIC PANEL 3. Screening for diabetes mellitus - ICD9: V77.1, ICD10: Z13.1 - HEMOGLOBIN A1C 4. Pain in both testicles - ICD9: 608.9, ICD10: N50.811, N50.812 - US SCROTUM AND CONTENTS 5. Testicle lump - ICD9: 608.89, ICD10: N50.89 - US SCROTUM AND CONTENTS 6. Encounter for immunization - ICD9: V03.89, ICD10: Z23 - PNEUMOCOCCAL VACCINE, 20 VALENT (PREVNAR 20) 7. Encounter for screening examination for other mental health and behavioral disorders - ICD9: V79.8, ICD10: Z13.39 - ANXIETY SCREENING 8 (more content not included)... Normal [facility] CNOVon 03-14-2024 CNOV Office Visit (UCWSTR) NIKOLAS MORALES ([id number]) 1980 M Date Time Provider Department 03/14/24 4:15 PM DESHAWN [facility]A [facility] During your visit today, we recorded the following information about you: Temperature Pulse Respiration Blood pressure 99.9 degrees 115/minute 18/minute 136/77 Weight 81.2 kg Deshawn Arboleda MD 03/14/2024 4:14 PM Signed Patient presents with: Chest Congestion: SOB x1 week, vomiting x this AM, low fever HPI: Feeling sick for 1 week with wheezing. Breathing symptoms are improved compared to last week. Today he developed vomiting and diarrhea. Positive symptoms: Cough, Shortness of breath, Fever, Headache, Vomiting, Nasal Congestion, Rhinorrhea, Negative symptoms: blood in emesis/stool, OTC: albuterol. Able to keep down chicken nuggets and sports drink this afternoon. PAST MEDICAL HISTORY Diagnosis Date Asthma Erectile dysfunction Generalized anxiety disorder Marijuana use Tobacco use MEDICATIONS: Current Outpatient Medications Medication Sig albuterol HFA (VENTOLIN HFA) 90 mcg/actuation inhaler Inhale 2 Puffs as instructed every 4 hours as needed. albuterol (PROVENTIL) 2.5 mg /3 mL (0.083 %) nebulizer solution Use 3 mL via nebulizer every 4 hours as needed for wheezing/shortness of breath. Use over 5-15minutes. (Patient not taking: Reported on 03/14/2024) FLUoxetine (PROZAC) 10 mg capsule Take 1 capsule by mouth once daily. No current facility-administere d medications for this visit. ALLERGIES: ALLERGIES No Known Allergies VITALS: BP 136/77 Pulse 115 Temp 37.7 ?C (99.9 ?F) Resp 18 Wt 81.2 kg (179 lb 0.2 oz) SpO2 96% BMI 24.79 kg/m? PHYSICAL EXAM: GEN: mildly ill appearing HEENT: PERRL, EOMI, conjunctiva clear Ears: canals clear. TMs without erythema, bulge, or effusion Sinuses: non-tender frontal sinus, non-tender maxillary sinuses Throat: moist mucous membranes, mild erythema, no exudate Neck: supple, no thyromegaly, no lymphadenopathy HEART: regular rate during my exam, regular rhythm, no murmurs LUNGS: clear to auscultation, no wheezes or crackles, no increased WOB ABD: Soft, non-distended, tender mid epigastrium, no masses ASSESSMENT/PLAN: 1. Gastroenteritis - ICD9: 558.9, ICD10: K52.9 (primary diagnosis) Likely infectious gastroenteritis starting today. Norovirus is prevalent in the community. Hydration with fluids encouraged. Resume normal solid intake as tolerated. Hand hygiene to reduce transmission. Follow up in the ER with signs of dehydration, increasing abdominal pain, high fever, or blood in vomit or stool. 2. Uncomplicated asthma, unspecified asthma severity, unspecified whether persistent - ICD9: 493.90, ICD10: J45.909 - suspect viral URI last week triggering asthma. - Discussed supportive care treatment with rest and inhaler. - ALBUTEROL SULFATE HFA 90 MCG/ACTUATION AEROSOL INHALER - PREDNISONE 10 MG TABLET requested. Deshawn Arboleda MD Allergies As of Date: 03/14/2024 (No Known Allergies) Date Reviewed: 03/14/2024 Reviewed by: Shavonne Guerra MA - Fully Assessed Reason for Visit: Chest Congestion [236] Cmt: SOB x1 week, vomiting x this AM, low fever Primary Visit Diagnosis:Gastroente ritis [K52.9] Other Visit Diagnosis:Uncomplica eleni asthma, unspecified asthma severity, unspecified whether persistent [J45.909] Order(s):albuterol HFA (VENTOLIN HFA) 90 mcg/actuation inhalerInhale 2 Puffs as instructed every 4 hours as needed.Disp: 18 gRfl: 0 predniSONE (DELTASONE) 10 mg tabletTake 5 tablets by mouth once daily for 1 day, THEN 4 tablets once daily for 1 day, THEN 3 tablets once daily for 1 day, THEN 2 tablets once daily for 1 day, THEN 1 tablet once daily for 1 day.Disp: 15 tabletRfl: 0 Prescriptions as of 03/14/2024 - albuterol HFA (VENTOLIN HFA) 90 mcg/actuation inhaler Inhale 2 Puffs as instructed every 4 hours as needed. - predniSONE (DELTASONE) 10 mg tablet Take 5 tablets by mouth once daily for 1 day, THEN 4 tablets once daily for 1 day, THEN 3 tablets once daily for 1 day, THEN 2 tablets once daily for 1 day, THEN 1 tablet once daily for 1 day. - albuterol (PROVENTIL) 2.5 mg /3 mL (0.083 %) nebulizer solution Use 3 mL via nebulizer every 4 hours as needed for wheezing/shortness of breath. Use over 5-15minutes. - FLUoxetine (PROZAC) 10 mg capsule Take 1 capsule by mouth once daily. Problem List As Of Date 03/14/2024 Noted Resolved Mild intermittent asthma without complication [*06/21/2016 Tobacco use [Z72.0] Asthma [J45.909] Lymphadenopathy, axillary [R59.0] 11/06/2018 Elevated BP without diagnosis of hypertension [*11/06/2018 Prescriptions ordered this encounter Disp Refills Start End ALBUTEROL SULFATE HFA 90 MCG/ACTUATI* 18 g 0 03/14/2024 Cmt: Generic or brand: dispense inhaler preferred by patient/insurance unless ZONIA flag is selected. Route: INHALATION (more content not included)... Normal [facility] CNCOon 12-22-2023 CNCO Letter Text Normal [facility] Chest 1 View (Portable)on Chest 1 View (Portable) [facility] Imaging Services [address] [place] [address] Chest 1 View (Portable) MR#: [id number] Acct: [id number] Name: NIKOLAS MORALES Rep #: [id number] : 1980 M 43 From: Geo regalado MD PCP: Dr. Malachi Richardson MD Status: [facility] ER Study: Chest 1 View (Portable) Date of Exam: 10/31/23 Exam# [id number] Ordering Dr: Vikas Quan DO [id number] STUDY: X-RAY CHEST REASON FOR EXAM: Male, 43 years old. cough, fever TECHNIQUE: Single AP portable view of the chest. COMPARISON: 09/26/2020. FINDINGS: The lungs are clear and expanded. There is no demonstrated pleural abnormality. Normal size heart. Normal mediastinum and ami. Normal visualized pulmonary arteries. Normal visualized aortic arch and descending thoracic aorta. Normal visualized thoracic spine. Normal visualized ribs, clavicles, and shoulders. There is no demonstrated abnormality of the visualized soft tissue structures of the upper abdomen. RAD/Chest 1 View (Portable) IMPRESSION: Normal x-ray examination of the chest. Electronically Signed: Geo Howard MD at 16:15 EDT , CC: Dr. Malachi Richardson MD; Dr. Vikas Quan DO Tanbark Peeler: Signed Normal [facility] Emergency Department Summary on 10-31-2023 Emergency Department Summary [facility] Medical Records Department [address] [place] [address] Emergency Department Summary 10/31/23 MR#: [id number] Acct: [id number] Name: NIKOLAS MORALES GRADY Rep #: [id number] : 1980 43 From: Vikas Quan DO PCP: Dr. Malachi Richardson MD Status:DEP ER Location: ED HPI History of Present Illness Chief Complaint: Fever Detail of Chief Complaint: Fever and vomiting Informant: patient Narrative Narrative: Patient presents to the emergency department complaint of vomiting and fever that started this morning. Patient states that he woke up and he had got a cold sweat and vomited twice. Has not vomited since. He had no diarrhea. Denies abdominal pain. He has had a cough for about 2 weeks. In a couple weeks ago he had some bodyaches as well. Patient states that his son is currently ill with cough and fever as well. Patient has history of asthma and history of borderline hypertension [facility] Medical History Asthma Home Medications ???Medication ???Instructions ???Recorded ???Last Taken ???Type prednisone 20 mg tablet 40 mg (2 x 20 mg) PO DAILY 7 days 08/10/23 Unknown Rx #14 tabs Allergy/AdvReac Type Severity Reaction Status Date / Time No Known Allergies Allergy Verified 10/31/23 14:47 Social History Smoking Status: Current every day smoker tobacco type: cigarettes substance use type: does not use ROS ROS ED Review of Systems ROS Unobtainable: other Constitutional Constitutional ED: Reports chills, fever(s), lethargy and sweats; Denies weight loss Eyes Eyes: Denies blurry vision, change in vision or diplopia ENT ENT ED: Denies rhinorrhea or sore throat Cardiovascular Cardiovascular: Denies chest pain, orthopnea or racing heartbeat Respiratory/Chest Respiratory/Chest: Reports cough; Denies dyspnea, dyspnea on exertion, orthopnea or sputum Gastrointestinal Gastrointestinal: Reports vomiting; Denies abdominal pain, diarrhea or nausea Genitourinary Genitourinary ED: Denies dysuria, hematuria or urinary frequency Musculoskeletal Musculoskeletal: Denies arthralgias, back pain, myalgias or neck pain Integumentary Denies abscess, Abrasions or rash Neurologic Neurologic: Denies headache(s) or weakness Psychiatric Psychiatric: Denies anxiety, depression or suicidal thoughts Endocrine Endocrinology: Denies polydipsia, polyphagia or polyuria Hematologic/Lymphati c Hematologic/Lymphati c: Denies easy bleeding, easy bruising or lymphadenopathy Allergic/Immunologic Allergic/Immunologic ED: Denies mouth swelling, tongue swelling or urticaria EXAM Physical Exam Const Vital Signs: 10/31/23 14:47 10/31/23 15:56 Temperature 98.6 F Temperature Source Oral Pulse Rate 92 Respiratory Rate 16 Respiratory Pattern Normal Blood Pressure 142/89 H Blood Pressure Mean 106 Pulse Ox 100 Oxygen Delivery Method Room Air Positive well nourished and well developed General Appearance ED: well developed and NAD HEENT Reports TM's clear and moist mucous membranes normocephalic and atraumatic; Negative for trauma or tenderness Tympanic Membrane ED: Yes TM's clear Eyes PERRL and EOMs intact bilaterally General Eye ED: Negative for pale conjunctiva or scleral icterus Neck no lymphadenopathy, supple and no JVD General: Negative for tenderness Chest Wall inspection of chest normal and palpation of chest normal Chest: Negative for tenderness Resp normal respiratory effort and clear to auscultation bilaterally Effort and Inspection: Negative for respiratory distress or pain with movement Auscultation: Negative for rhonchi, wheezes or diminished lung sounds Cardio regular rate, regular rhythm, S1 normal heart sound, S2 normal heart sound and no murmurs Peripheral Pulses: pulses 2+ throughout GI normal to inspection, nondistended, normoactive bowel sounds, soft to palpation, non-tender, non- distended and no masses Back/Spine no CVA tenderness and no thoracic nor lumbar tenderness Extremity normal to inspection General Extremety ED: Negative for edema General Extremity: Negative for edema Neuro oriented x3, CN's II-XII intact bilaterally, no sensory deficits noted and gait normal Sensorium / Orientation: awake, alert, oriented to person, oriented to place and oriented to time Motor Exam: strength 5/5 throughout and strength abnormal Psych mental status grossly normal Skin no rashes or lesions noted and no wounds MDM MDM MDM Narrative Medical decision making narrative: Patient presents with vomiting and fever that started this morning. He said a cough for over a week. Clinically looks well. He has had no more vomiting since this morning and has had no diarrhea. I d (more content not included)... Normal [facility] M100.678on 10-31-2023 M100.678 Pending SARS-CoV-2 (COVID 19) Negative INFLUENZA A Negative INFLUENZA B Negative RSV PCR Negative Normal [facility] Comment on above: Performed By: #### M 100.678 #### [facility] Laboratory [address] [place], [address] ED Nursing Noteon 08-12-2023 ED Nursing Note Pt called for Uber ride home Julienne Abreu RN 08/12/23 0812 [facility] ED Nursing Note Assumed care of pt, report received from Salas Abreu RN 08/12/23 0721 [facility] ED Nursing Note Awaiting ride. Pending dc. Provider aware. Dairy Consultant aware. Salas Pickett RN 08/12/23 0576 [facility] ED Provider Noteon ED Provider Note EMERGENCY DEPARTMENT ENCOUNTER Pt Name: Nikolas Morales Birthdate 1980 Date of evaluation: 08/12/2023 ED Provider: Nirmala Calvert MD CHIEF COMPLAINT Chief Complaint Patient presents with Alcohol Intoxication Pt was found on ground outside of local bar. Pt was given 1 narcan in route and pt did not arouse. Upon arrival pt is lethargic and vomiting, a strong aroma of alcohol is also on the pt. Pt states he drank a lot of IPA's. HISTORY OF PRESENT ILLNESS (Location/Symptom, Timing/Onset, Context/Setting, Quality, Duration, Modifying Factors, Severity) Note limiting factors. I wore appropriate PPE for the entirety of this encounter. HPI Nikolas Morales is a 43 y.o. who presents to the emergency department for alcohol intoxication. Patient states that he manage obtain testing for diabetes and he stated vomiting. He states that he is not a daily drinker. Patient is currently on steroids as an IV and feels as if he had a reaction with the alcohol. Denies any falls or injuries. Denies any head strike or loss of consciousness. Patient is alert and oriented x 3. Nursing Notes were reviewed. Limitations to history: None Outside historians: None REVIEW OF SYSTEMS Review of Systems Pertinent positives and negatives as per HPI. PAST MEDICAL HISTORY No past medical history on file. SURGICAL HISTORY No past surgical history on file. CURRENT MEDICATIONS Previous Medications No medications on file ALLERGIES Patient has no known allergies. FAMILY HISTORY No family history on file. SOCIAL HISTORY Social History Socioeconomic History Marital status: Single Social Determinants of Health Financial Resource Strain: Low Risk (10/16/2020) Received from [facility] Overall Financial Resource Strain (CARDIA) Difficulty of Paying Living Expenses: Not hard at all Food Insecurity: No Food Insecurity (10/16/2020) Received from [facility] Hunger Vital Sign Worried About Running Out of Food in the Last Year: Never true Ran Out of Food in the Last Year: Never true Transportation Needs: Unmet Transportation Needs (10/16/2020) Received from [facility] PRAPARE - Transportation Lack of Transportation (Medical): No Lack of Transportation (Non-Medical): Yes Physical Activity: Insufficiently Active (10/16/2020) Received from [facility] Exercise Vital Sign Days of Exercise per Week: 3 days Minutes of Exercise per Session: 40 min Stress: Stress Concern Present (10/16/2020) Received from [facility] - Occupational Stress Questionnaire Feeling of Stress : To some extent Social Connections: Moderately Isolated (10/16/2020) Received from [facility] Social Connection and Isolation Panel [NHANES] Frequency of Communication with Friends and Family: More than three times a week Frequency of Social Gatherings with Friends and Family: Once a week Attends Mandaen Services: Never Attends Club or Organization Meetings: Never Marital Status: SCREENINGS Froilan Coma Scale Best Eye Response: Spontaneous Best Verbal Response: Oriented Best Motor Response: Follows commands Froilan Coma Scale Score: 15 PHYSICAL EXAM ED Triage Vitals Temp Pulse Resp BP -- -- -- -- SpO2 Temp src Heart Rate Source Patient Position -- -- -- -- BP Location FiO2 (%) -- -- Physical Exam Vitals and nursing note reviewed. Constitutional: General: He is not in acute distress. Appearance: Normal appearance. He is not ill-appearing. HENT: Head: Normocephalic and atraumatic. Mouth/Throat: Mouth: Mucous membranes are moist. Eyes: General: No scleral icterus. Conjunctiva/sclera: Conjunctivae normal. Cardiovascular: Rate and Rhythm: Normal rate and regular rhythm. Heart sounds: Normal heart sounds. Pulmonary: Effort: Pulmonary effort is normal. Breath sounds: Normal breath sounds. Abdominal: Palpations: Abdomen is soft. Tenderness: There is no abdominal tenderness. Musculoskeletal: General: Normal range of motion. Neurological: General: No focal deficit present. Mental Status: He is alert and oriented to person, place, and time. Psychiatric: Attention and Perception: He does not perceive auditory or visual hallucinations. Mood and Affect: Mood and affect normal. Speech: Speech is slurred. Thought Content: Thought content does not include homicidal or suicidal ideation. Thought content does not include homicidal or suicidal plan. DIAGNOSTIC RESULTS RADIOLOGY (Per Emergency Physician): Interpretation per the Radiologist below, if available at the time of this note: No orders to display LABS: Labs Reviewed - No data to display All other labs were within normal range or not returned as of this dictation. EMERGENCY DEPARTMENT COURSE and DIFFERENTIAL DIAGNOSIS/MDM: Vitals: Vitals: 08/12/23 0134 08/12/23 0313 08/12/23 0420 08/12/23 0517 BP: 108/74 117 (more content not included)... Normal [facility] ED Provider Note Emergency Department Encounter [facility] EMERGENCY DEPT Patient: Nikolas Morales : 1980 Date of Evaluation: 08/12/2023 ED Supervising Physician: Deshawn Joaquin MD I personally evaluated Nikolas Morales and made/approved the management plan and take responsibility for the patient management. This will serve as my Supervisory note and shared attestation. I did perform a substantive portion of the visit including all aspects of the Medical Decision Making. I wore appropriate PPE for the entirety of this encounter. In brief, Nikolas Morales is a 43 y.o. that presents to the emergency department for evaluation of vomiting after drinking alcohol. Patient is concerned that the alcohol is reacting to steroids he is currently taking for his poison rubina on his hand. Complains of nausea. Focused exam: Awake and alert. Lungs clear to auscultation. Heart regular rate and rhythm. Abdomen soft nondistended without focal tenderness. Brief ED course/MDM: Patient observed in the ED for several hours. He awakens easily during these repeated examinations. He exhibits alcohol intoxication. He has no hypoxia as he is followed on continuous pulse oximetry monitoring. Follow-up closely as an outpatient. Return if worse or new problems. All diagnostic, treatment, and disposition decisions were made by myself in conjunction with the Resident. I also supervised shetty portions of any procedures performed by the Resident. For all further details of the patient's emergency department visit, please see their documentation. (Comment: Please note this report has been produced using speech recognition software and may contain errors related to that system including errors in grammar, punctuation, and spelling, as well as words and phrases that may be inappropriate. If there are any questions or concerns please feel free to contact the dictating provider for clarification.) Deshawn Joaquin MD [employer] Deshawn Joaquin MD 08/12/23 0429 Normal [facility] CNCOon 07-18-2023 CNCO Letter Text Normal [facility] metabolic 2000 panelon 08-13-2021 Albumin [Mass/Vol] 4.8 g/dL 3.9 - 4.9 g/dL Cl [facility] ALP [Catalytic activity/Vol] 86 U/L 38 - 113 U/L [place] ALT [Catalytic activity/Vol] 8 U/L Low 10 - 54 U/L [facility] Anion gap [Moles/Vol] 10 mmol/L 9 - 18 mmol/L [facility] AST [Catalytic activity/Vol] 16 U/L 14 - 40 U/L [facility] Bilirubin [Mass/Vol] 0.5 mg/dL 0.2 - 1 .3 mg/dL [facility] Calcium [Mass/Vol] 9.3 mg/dL 8.5 - 10. 2 mg/dL [facility] Chloride [Moles/Vol] 101 mmol/L 97 - 10 5 mmol/L [facility] CO2 [Moles/Vol] 27 mmol/L 22 - 30 mmol/L [facility] Creatinine [Mass/Vol] 0.87 mg/dL 0.73 - 1.22 mg/dL [facility] Estimated Glomerular Filtration Rate 112 mL/min/1.73m >=60 mL/min/1.73m [facility] Glucose [Mass/Vol] 83 mg/dL 74 - 99 mg/dL [facility] Potassium [Moles/Vol] 4.5 mmol/L 3.7 - 5.1 mmol/L [facility] Protein [Mass/Vol] 7.3 g/dL 6.3 - 8.0 g/dL [facility] Sodium [Moles/Vol] 138 mmol/L 136 - 144 mmol/L [place] Urea nitrogen [Mass/Vol] 10 mg/dL 9 - 24 mg/dL [facility] HbA1c (Bld)on 08-13-2021 Average glucose Estimated from glycated hemoglobin (Bld) [Mass/Vol] 103 mg/dL [facility] HbA1c (Bld) [Mass fraction] 5.2 % 4.3 - 5.6 % [facility] TSH BLDon 08-13-2021 TSH Qn 0.385 m[IU]/L 0.270 - 4.200 mIU/L [facility] CBC W Auto Differential pane l (Bld)on 08-12-2021 Abs Immature Gran <0.03 <0.10 k/uL [facility] Basophils (Bld) [#/Vol] 0.06 10*3/uL <0.11 k/uL [facility] Basophils/100 WBC (Bld) 0.7 % C [facility] Differential cell count method Nom (Bld) Auto [facility] Eosinophils (Bld) [#/Vol] 0.48 10*3/uL High <0.46 k/uL [facility] Eosinophils/100 WBC (Bld) 5.7 % [facility] Erythrocyte distribution width (RBC) [Ratio] 12.0 % 11.5 - 15.0 % [facility] Hematocrit (Bld) [Volume fraction] 47.2 % 39.0 - 51.0 % [facility] Hemoglobin (Bld) [Mass/Vol] 15.4 g/dL 13.0 - 17.0 g/dL [facility] Immature Gran % 0.2 % [facility] Lymphocytes (Bld) [#/Vol] 2.07 10*3/uL 1.00 - 4.00 k/uL [facility] Lymphocytes/100 WBC (Bld) 24.6 % [facility] MCH (RBC) [Entitic mass] 30.2 pg 26.0 - 34.0 pg [facility] MCHC (RBC) [Mass/Vol] 32.6 g/dL 30.5 - 36.0 g/dL [facility] MCV (RBC) [Entitic vol] 92.5 fL 80.0 - 100.0 fL [facility] Monocytes (Bld) [#/Vol] 0.79 10*3/uL <0.87 k/uL [facility] Monocytes/100 WBC (Bld) 9.4 % C [facility] Neutrophils (Bld) [#/Vol] 5.00 10*3/uL 1.45 - 7.50 k/uL [facility] Neutrophils/100 WBC (Bld) 59.4 % [facility] Nucleated RBC (Bld) [#/Vol] 10*3/uL <0.01 k/uL [facility] Nucleated RBC/100 WBC (Bld) [Ratio] 0.0 /100 WBC [facility] Platelet mean volume (Bld) [Entitic vol] 9.9 fL 9.0 - 12.7 fL [facility] Platelets (Bld) [#/Vol] 394 10*3/uL 150 - 400 k /uL [facility] RBC (Bld) [#/Vol] 5.10 10*6/uL 4.20 - 6.0 0 m/uL [facility] WBC (Bld) [#/Vol] 8.42 10*3/uL 3.70 - 11. 00 k/uL [facility] XR Chest PA and Lateralon IMPRESSION: Prominence of the left hilum. Tanbark Peeler: MARVA Transcribe Date/Time: Oct 15 2020 11:28A Dictated by : BALAJI NEVAREZ MD This examination was interpreted and the report reviewed and electronically signed by: BALAJI NEVAREZ MD on Oct 15 2020 11:30AM [facility] DIVISION OF RADIOLOGY * * *Final Report* * * DATE OF EXAM: Oct 15 2020 11:27AM WOX [id number] - XR CHEST 2V FRONTAL/LAT / PROCEDURE REASON: Cough * * * * Physician Interpretation * * * * EXAMINATION: CHEST RADIOGRAPH (2 VIEW FRONTAL & LATERAL) CLINICAL HISTORY: Cough MQ: XC2_6 EXAM DATE/TIME: 10/15/2020 11:27 AM COMPARISON: Chest x-ray on 11/12/2018. RESULT: Lines, tubes, and devices: None. Lungs and pleura: No consolidation. No definite nodules seen. No lung mass. No pleural effusion. No pneumothorax. Cardiomediastinal silhouette: Stable cardiac silhouette. There is prominence of the left hilum. Bones and soft tissues: Unremarkable. DIVISION OF RADIOLOGY Provider, [facility] - 10/15/2020 * * *Final Report* * * DATE OF EXAM: Oct 15 2020 11:27AM WOX [id number] - XR CHEST 2V FRONTAL/LAT / PROCEDURE REASON: Cough * * * * Physician Interpretation * * * * EXAMINATION: CHEST RADIOGRAPH (2 VIEW FRONTAL & LATERAL) CLINICAL HISTORY: Cough MQ: XC2_6 EXAM DATE/TIME: 10/15/2020 11:27 AM COMPARISON: Chest x-ray on 11/12/2018. RESULT: Lines, tubes, and devices: None. Lungs and pleura: No consolidation. No definite nodules seen. No lung mass. No pleural effusion. No pneumothorax. Cardiomediastinal silhouette: Stable cardiac silhouette. There is prominence of the left hilum. Bones and soft tissues: Unremarkable. IMPRESSION IMPRESSION: Prominence of the left hilum. Tanbark Peeler: PSCB Transcribe Date/Time: Oct 15 2020 11:28A Dictated by : BALAJI NEVAREZ MD This examination was interpreted and the report reviewed and electronically signed by: BALAJI NEVAREZ MD on Oct 15 2020 11:30AM EST [facility] Study observation (narrative) [facility] XR Chest PA and LateralOrder ed By: [facility] Provider on 10-15-2020 [facility] Vital Signs Date Time Vital Sign Value Performing Clinician Faci lity 09-23-2024 18:14-0400 Body temperature 98.9 [degF] Dr. Malachi Richadrson MD Work Phone: [facility] 09-23-2024 18:14-0400 Diastolic blood pressure 96 mm[Hg] Dr. Malachi Richardson MD Work Phone: [facility] 09-23-2024 18:14-0400 Heart rate 89 /min Dr. Malachi Richardson MD Work Phone: [facility] 09-23-2024 18:14-0400 Respiratory rate 16 /min Dr. Malachi Richardson MD Work Phone: [facility] 09-23-2024 18:14-0400 SaO2% (BldA) [Mass fraction] 98 % Dr. Malachi Richardson MD Work Phone: [facility] 09-23-2024 18:14-0400 Systolic blood pressure 136 mm[Hg] Dr. Malachi Richardson MD Work Phone: [facility] 09-23-2024 14:22-0400 Body height 182.[address] Malachi Richardson MD Work Phone: [facility] 09-23-2024 14:22-0400 Body mass index (BMI) [Ratio] 22.8 kg/m2 Dr. Malachi Richardson MD Work Phone: [facility] 09-23-2024 14:22-0400 Body weight 76.[address] Malachi Richardson MD Work Phone: [facility] 05-09-2024 18:28-0400 Body mass index (BMI) [Ratio] 24.73 kg/m2 Karen Hairston APRN.PHYSICAL EDUCATION SPECIALIST Work Phone: [facility] 05-09-2024 18:28-0400 Body weight 81 kg Karen Hairston APRN.PHYSICAL EDUCATION SPECIALIST Work Phone: [facility] 05-09-2024 18:28-0400 Diastolic blood pressure 79 mm[Hg] Karen Hairston APRN.PHYSICAL EDUCATION SPECIALIST Work Phone: [facility] 05-09-2024 18:28-0400 Heart rate 80 /min Karen Hairston APRN.PHYSICAL EDUCATION SPECIALIST Work Phone: [facility] 05-09-2024 18:28-0400 Systolic blood pressure 145 mm[Hg] Karen Hairston APRN.PHYSICAL EDUCATION SPECIALIST Work Phone: [facility] 03-14-2024 15:55-0500 Body mass index (BMI) [Ratio] 24.79 kg/m2 Deshawn Arboleda MD Work Phone: [facility] 03-14-2024 15:55-0500 Body temperature 99.9 [degF] Deshawn Arboleda MD Work Phone: [facility] 03-14-2024 15:55-0500 Body weight 81.2 kg Deshawn Arboleda MD Work Phone: [facility] 03-14-2024 15:55-0500 Diastolic blood pressure 77 mm[Hg] Deshawn Arboleda MD Work Phone: [facility] 03-14-2024 15:55-0500 Heart rate 115 /min Deshawn Arboleda MD Work Phone: [facility] 03-14-2024 15:55-0500 Respiratory rate 18 /min Deshawn Arboleda MD Work Phone: [facility] 03-14-2024 15:55-0500 SaO2% (BldA) [Mass fraction] 96 % Deshawn Arboleda MD Work Phone: [facility] 03-14-2024 15:55-0500 Systolic blood pressure 136 mm[Hg] Deshawn Arboleda MD Work Phone: [facility] 08-12-2023 07:22-0400 Diastolic blood pressure 54 mm[Hg] Deshawn Joaquin MD Work Phone: [facility] 08-12-2023 07:22-0400 Heart rate 76 /min Deshawn Joaquin MD Work Phone: [facility] 08-12-2023 07:22-0400 Respiratory rate 16 /min Deshawn Joaquin MD Work Phone: [facility] 08-12-2023 07:22-0400 SaO2% (BldA) [Mass fraction] 97 % Deshawn Joaquin MD Work Phone: [facility] 08-12-2023 07:22-0400 Systolic blood pressure 125 mm[Hg] Deshawn Joaquin MD Work Phone: [facility] [facility] 08-12-2023 04:20-0400 Body height 180.3 cm Deshawn Joaquin MD Work Phone: [employer] [facility] 08-12-2023 04:20-0400 Body mass index (BMI) [Ratio] 26.5 kg/m2 Deshawn Joaquin MD Work Phone: [facility] 08-12-2023 04:20-0400 Body weight 86.18 kg Deshawn Joaquin MD Work Phone: [facility] 08-12-2023 01:34-0400 Body temperature 98.71 [degF] Deshawn Joaquin MD Work Phone: [facility] 11-14-2022 14:10-0400 Body temperature 98.01 [degF] Sahil Ruiz HORTICULTURAL SERVICES SUPERVISOR.PHYSICAL EDUCATION SPECIALIST Work Phone: [facility] 11-14-2022 14:10-0400 Body weight 91.72 kg Sahil Ruiz HORTICULTURAL SERVICES SUPERVISOR.PHYSICAL EDUCATION SPECIALIST Work Phone: [facility] 11-14-2022 14:10-0400 Diastolic blood pressure 80 mm[Hg] Sahil Joseph HORTICULTURAL SERVICES SUPERVISOR.PHYSICAL EDUCATION SPECIALIST Work Phone: [facility] 11-14-2022 14:10-0400 Heart rate 85 /min Sahil Joseph HORTICULTURAL SERVICES SUPERVISOR.PHYSICAL EDUCATION SPECIALIST Work Phone: [facility] 11-14-2022 14:10-0400 Respiratory rate 21 /min Sahil Joseph HORTICULTURAL SERVICES SUPERVISOR.PHYSICAL EDUCATION SPECIALIST Work Phone: [facility] 11-14-2022 14:10-0400 SaO2% (BldA) [Mass fraction] 98 % Sahil King HORTICULTURAL SERVICES SUPERVISOR.PHYSICAL EDUCATION SPECIALIST Work Phone: [facility] 11-14-2022 14:10-0400 Systolic blood pressure 130 mm[Hg] Sahil King HORTICULTURAL SERVICES SUPERVISOR.PHYSICAL EDUCATION SPECIALIST Work Phone: [facility] 06-22-2022 10:52-0400 Body temperature 97.9 [degF] Deshawn Arboleda MD Work Phone: [facility] 06-22-2022 10:52-0400 Body weight 91.54 kg Deshawn Arboleda MD Work Phone: [facility] 06-22-2022 10:52-0400 Diastolic blood pressure 80 mm[Hg] Deshawn Arboleda MD Work Phone: [facility] 06-22-2022 10:52-0400 Heart rate 87 /min Deshawn Arboleda MD Work Phone: [facility] 06-22-2022 10:52-0400 Respiratory rate 21 /min Deshawn Arboleda MD Work Phone: [facility] 06-22-2022 10:52-0400 SaO2% (BldA) [Mass fraction] 99 % Deshawn Arboleda MD Work Phone: [facility] 06-22-2022 10:52-0400 Systolic blood pressure 132 mm[Hg] Deshawn Arboleda MD Work Phone: [facility] 05-11-2022 16:07-0400 Body height 181 cm Nay Zhang HORTICULTURAL SERVICES SUPERVISOR.PHYSICAL EDUCATION SPECIALIST Work Phone: [facility] 05-11-2022 16:07-0400 Body weight 92.99 kg Nay Zhang HORTICULTURAL SERVICES SUPERVISOR.PHYSICAL EDUCATION SPECIALIST Work Phone: [facility] 05-11-2022 16:07-0400 Diastolic blood pressure 68 mm[Hg] Nay Zhang HORTICULTURAL SERVICES SUPERVISOR.PHYSICAL EDUCATION SPECIALIST Work Phone: [facility] 05-11-2022 16:07-0400 Heart rate 84 /min Nay Zhang HORTICULTURAL SERVICES SUPERVISOR.PHYSICAL EDUCATION SPECIALIST Work Phone: [facility] 05-11-2022 16:07-0400 Respiratory rate 16 /min Nay Zhang HORTICULTURAL SERVICES SUPERVISOR.PHYSICAL EDUCATION SPECIALIST Work Phone: [facility] 05-11-2022 16:07-0400 Systolic blood pressure 138 mm[Hg] Nay Zhang HORTICULTURAL SERVICES SUPERVISOR.PHYSICAL EDUCATION SPECIALIST Work Phone: [facility] 08-12-2021 15:20-0400 Diastolic blood pressure 88 mm[Hg] Juju Richardson MD Work Phone: [facility] 08-12-2021 15:20-0400 Systolic blood pressure 130 mm[Hg] Juju Richardson MD Work Phone: [facility] 08-12-2021 14:40-0400 Body weight 89.45 kg Juju Richardson MD Work Phone: [facility] 08-12-2021 14:40-0400 Heart rate 86 /min Juju Richardson MD Work Phone: [facility] 08-12-2021 14:40-0400 Respiratory rate 18 /min Juju Richardson MD Work Phone: [facility] 08-12-2021 14:40-0400 SaO2% (BldA) [Mass fraction] 97 % Juju Richardson MD Work Phone: [facility] Encounters Encounter Date Encounter Type Care Provider Facility Start: 10-01-2024 End: 10-02-2024 Refill Juju Richardson MD Work Phone: [address] [place] [address] Comment on above: Refill Request Start: 09-23-2024 End: 09-23-2024 Emergency department patient visit Dr. Malachi Richardson MD Work Phone: -Emergency Department Work Phone: Start: 08-22-2024 End: 08-23-2024 Refill Juju Richardson MD Work Phone: [facility] Comment on above: Refill Request Start: 07-12-2024 End: 07-13-2024 Refill Juju Richardson MD Work Phone: [facility] Comment on above: Refill Request Start: 05-13-2024 End: 05-13-2024 Follow-up encounter Karen Hairston APRN.PHYSICAL EDUCATION SPECIALIST Work Phone: [facility] [place] Start: 05-10-2024 End: 05-13-2024 Telephone encounter Juju Richardson MD Work Phone: [facility] Comment on above: Results Start: 05-10-2024 End: 05-10-2024 ambulatory KAREN HAIRSTON Facility:[facility] Start: 05-10-2024 End: 05-10-2024 Subsequent hospital visit by physician [facility] Work Phone: Radiology Comment on above: Pain in both testicl es [N50.811, N50.812] Start: 05-09-2024 End: 05-09-2024 ambulatory KAREN HAIRSTON Facility:[facility] Start: 05-09-2024 End: 05-09-2024 Patient encounter procedure Karen Hairston APRN.PHYSICAL EDUCATION SPECIALIST Work Phone: [facility] Comment on above: Screening for hyperl ipidemia (Primary Dx); Routine physical examination; Screening for diabetes mellitus; Pain in both testicles; Testicle lump; Encounter for immunization; Encounter for screening examination for other mental health and behavioral disorders; Screening for depression Start: 05-09-2024 End: 05-09-2024 Physical examination Karen Hairston APRN.PHYSICAL EDUCATION SPECIALIST Work Phone: [facility] Start: 05-01-2024 End: 05-01-2024 Refill Juju Richardson MD Work Phone: [facility] Comment on above: Refill Request Start: 03-14-2024 End: 03-14-2024 Patient encounter procedure Deshawn Arboleda MD Work Phone: [facility] Comment on above: Gastroenteritis (Hayley soha Dx); Uncomplicated asthma, unspecified asthma severity, unspecified whether persistent Start: 03-14-2024 End: 03-14-2024 ambulatory JUJU RICHARDSON Facility:[facility] Start: 12-11-2023 End: 12-12-2023 Refill Juju Richardson MD Work Phone: [facility] Comment on above: Refill Request Start: 11-13-2023 End: 11-13-2023 Refill Juju Richardson MD Work Phone: [facility] Comment on above: Refill Request Start: 10-31-2023 End: 10-31-2023 Emergency department patient visit Malachi Richardson Facility:[facility] Start: 10-16-2023 End: 10-16-2023 Refill Juju Richardson MD Work Phone: [facility] Comment on above: Refill Request Start: 08-12-2023 End: 08-12-2023 Emergency department patient visit Deshawn Joaquin MD Work Phone: [facility] EM[facility]Y [facility]PT Comment on above: Alcoholic intoxicati on without complication (CMS/HCC) (HCC) (Primary Dx) Start: 07-07-2023 Refill Juju Richardson MD Work Phone: [facility] Comment on above: Refill Request Start: 01-20-2023 Refill Juju Richardson MD Work Phone: [facility] Comment on above: Refill Request Start: 12-23-2022 Refill Juju Richardson MD Work Phone: [facility] Comment on above: Refill Request Start: 11-21-2022 Refill Juju Richardson MD Work Phone: [facility] Comment on above: Refill Request Start: 11-14-2022 End: 11-14-2022 Patient encounter procedure Sahil Ruiz APRN.PHYSICAL EDUCATION SPECIALIST Work Phone: [facility] Comment on above: Viral syndrome (Prim sindy Dx) Start: 10-24-2022 Refill Juju Richardson MD Work Phone: [facility] Comment on above: Refill Request medication issue Start: 10-05-2022 Refill Juju Richardson MD Work Phone: [facility] Comment on above: Refill Request Start: 08-16-2022 Telephone encounter Alyssa LUNA Work Phone: [facility] Comment on above: Results Start: 08-11-2022 Refill Juju Richardson MD Work Phone: [facility] Comment on above: Refill Request (need s today) Start: 06-22-2022 End: 06-22-2022 Patient encounter procedure Deshawn Arboleda MD Work Phone: [facility] Comment on above: Gastroenteritis (Hayley soha Dx) Start: 05-23-2022 Refill Juju Richardson MD Work Phone: [facility] Comment on above: Refill Request Start: 05-11-2022 End: 05-11-2022 Patient encounter procedure Nay Zhang APRN.PHYSICAL EDUCATION SPECIALIST Work Phone: [facility] Comment on above: Erectile dysfunction , unspecified erectile dysfunction type (Primary Dx); Screening for hyperlipidemia; Routine physical examination; Mild intermittent asthma without complication; Elevated BP without diagnosis of hypertension; HONEY (generalized anxiety disorder); Smoker Start: 05-11-2022 End: 05-11-2022 Physical examination Nay Zhang PHYSICAL EDUCATION SPECIALIST Work Phone: [facility] [place] Start: 04-26-2022 Refill Juju Richardson MD Work Phone: [facility] Comment on above: Refill Request Start: 04-12-2022 Refill Juju Richardson MD Work Phone: [facility] [place] Comment on above: Refill Request Start: 03-31-2022 Refill Juju Richardson MD Work Phone: [facility] Comment on above: Refill Request Start: 03-23-2022 Refill Juju Richardson MD Work Phone: [facility] Comment on above: Refill Request Start: 03-15-2022 Refill Juju Richardson MD Work Phone: [facility] Comment on above: Refill Request Start: 02-22-2022 Refill Juju Richardson MD Work Phone: [facility] Comment on above: Refill Request Start: 02-19-2022 Refill Juju Richardson MD Work Phone: [facility] Comment on above: Refill Request Start: 02-03-2022 Refill Juju Richardson MD Work Phone: [facility] Comment on above: Refill Request Start: 10-27-2021 Refill Juju Richardson MD Work Phone: [facility] Comment on above: Refill Request Start: 10-05-2021 Refill Juju Richardson MD Work Phone: [facility] Comment on above: Refill Request Start: 09-30-2021 Refill Juju Richardson MD Work Phone: [facility] [place] Comment on above: Refill Request Start: 09-03-2021 Telephone encounter Malachi Richardson MD Work Phone: [facility] [place] Comment on above: Results Start: 08-25-2021 Telephone encounter Malachi Richardson MD Work Phone: [facility] [place] Comment on above: Opened In Error Start: 08-12-2021 End: 08-12-2021 Patient encounter procedure Juju Richardson MD Work Phone: [facility] [place] Comment on above: Erectile dysfunction , unspecified erectile dysfunction type (Primary Dx); Uncomplicated asthma, unspecified asthma severity, unspecified whether persistent Start: 08-03-2021 Refill Juju Richardson MD Work Phone: [facility] [place] Comment on above: Prescription Refills Start: 02-17-2021 Telephone encounter Danelle blanton APRN.PHYSICAL EDUCATION SPECIALIST Work Phone: [facility] [place] Comment on above: Results Start: 10-15-2020 End: 10-15-2020 Subsequent hospital visit by physician Xr [facility] [place] Work Phone: Radiology Comment on above: Cough [R05] Procedures Date Procedure Procedure Detail Performing Clinician Start: 09-23-2024 X-ray of chest, PA a nd lateral views Dr. Malachi Richardson MD Work Phone: Start: 09-23-2024 SARS-CoV-2, Influenz a & RSV (PCR) Dr. Malachi Richardson MD Work Phone: Start: 05-10-2024 Dup-scan artl tamia abdl/pel/scrot&/rpr orgn com Karen Hairston APRN.PHYSICAL EDUCATION SPECIALIST Work Phone: Start: 05-10-2024 Us scrotum & contents D kris Hairston APRN.PHYSICAL EDUCATION SPECIALIST Work Phone: Start: 05-09-2024 Adult depression screening assessment Karen Hairston APRN.PHYSICAL EDUCATION SPECIALIST Work Phone: Start: 10-16-2020 Adult depression screening assessment Juju Richardson MD Work Phone: Start: 10-15-2020 Radiologic exam ches t 2 views Deshawn Arboleda MD Work Phone: Start: 12-24-2019 Lipid 1996 panel - S lelo or Plasma Juju Richardson MD Work Phone: Plan of Treatment Date Care Activity Detail Author Start: 2041 RSV Immunization age d 60 or older (1 - 1-dose 60+ series) RSV Immunization aged 60 or older (1 - 1-dose 60+ series) [facility] Start: 07-26-2031 Zoster Vaccines (1 o f 2) Zoster Vaccines (1 of 2) [facility] Start: 12-19-2029 DTaP/Tdap/Td Vaccine s (2 - Td or Tdap) DTaP/Tdap/Td Vaccines (2 - Td or Tdap) [facility] Start: 12-19-2029 Urine microalbumin profile [place] Start: 05-15-2025 End: 05-15-2025 Patient encounter procedure 05/15/2025 4:20 PM EDT Office Visit [facility] [place] [address] [place] [address] Karen Hairston APRN.[facility] [address] [place] [address] Annual/physical [facility] [place] Comment on above: Annual/physical Start: 05-09-2025 Annual PCP Team [employer] ruby Disease Visit Annual PCP Team Chronic Disease Visit [place] Start: 05-09-2025 Anxiety Screening Anxiety Screening [place] Start: 05-09-2025 Covid-19 Vaccine ( season) Covid-19 Vaccine ( season) [place] Comment on above: Postponed from 10/07 (Declined at this time) Start: 05-09-2025 Depression Screening Depression Scre ening [place] Start: 05-09-2025 Hepatitis B Vaccine (1 of 3 - 19+ 3-dose series) Hepatitis B Vaccine (1 of 3 - 19+ 3-dose series) [place] Comment on above: Postponed from 07/25 (Declined at this time) Start: 12-23-2024 Lipid 1996 panel - Serum or Plasma Lipid Screening [place] Start: 12-23-2024 Lipid panel Lipid Screening [facility] Start: 12-23-2024 LIPID SCREEN LIPID SCREEN [place] Start: 10-09-2024 End: 10-09-2024 Patient encounter procedure 10/09/2024 3:20 PM EDT Office Visit [facility] [address], [place] [id number] Karen Hairston APRN.PHYSICAL EDUCATION SPECIALIST [address], [place] [id number] [facility] Er follow F/U Family [facility] Comment on above: [facility] Er follow F/U Start: 10-07-2024 Influenza vaccination [facility] Start: 09-23-2024 [facility] Start: 08-12-2024 Diabetes mellitus screening Diabetes Screening [facility] Start: 08-05-2024 Influenza vaccination Influenza Vacc ine (#1) [place] Comment on above: Postponed from 10/07 (Declined at this time) Start: 05-10-2024 End: 05-10-2024 Patient encounter procedure 05/10/2024 1:45 PM EDT Appointment Radiology [address] [place], [place] [id number] Pain in both testicles [N50.811, N50.812] Radiology Comment on above: Pain in both testicl es [N50.811, N50.812] Start: 05-09-2024 End: 05-09-2024 Patient encounter procedure 05/09/2024 6:40 PM EDT Office Visit [facility] [address], [place] [id number] Karen Hairston APRN.PHYSICAL EDUCATION SPECIALIST [address], [place] [id number] Annual [facility] Comment on above: Annual Start: 05-09-2024 End: 08-08-2024 CBC W Auto Differential panel - Blood COMPLETE BLOOD COUNT AND DIFFERENTIAL Lab Routine Routine physical examination Expected: 05/09/2024, Expires: 08/08/2024 [facility] Work Phone: Comment on above: Expected: 05/09/2024 , Expires: 08/08/2024 Start: 05-09-2024 End: 08-08-2024 Comprehensive metabolic 2000 panel - Serum or Plasma COMPREHENSIVE METABOLIC PANEL Lab Routine Routine physical examination Expected: 05/09/2024, Expires: 08/08/2024 [place] Comment on above: Expected: 05/09/2024 , Expires: 08/08/2024 Start: 05-09-2024 End: 08-08-2024 Hemoglobin A1c in Blood HEMOGLOBIN A1C Lab Routine Screening for diabetes mellitus Expected: 05/09/2024, Expires: 08/08/2024 [place] Comment on above: Expected: 05/09/2024 , Expires: 08/08/2024 Start: 05-09-2024 End: 08-08-2024 LIPID PANEL, NONFASTING LIPID PANEL, NONFASTING Lab Routine Screening for hyperlipidemia Expected: 05/09/2024, Expires: 08/08/2024 [place] Comment on above: Expected: 05/09/2024 , Expires: 08/08/2024 Start: 12-18-2023 End: 12-18-2023 Patient encounter procedure 12/18/2023 2:20 PM EST Office Visit Family [facility] [address] [address] Juju Richardson MD [address] [place], [place] [id number] follow up Family [facility] Comment on above: follow up Start: 10-08-2023 Covid-19 Vaccine ( season) Covid-19 Vaccine ( season) [place] Start: 10-08-2023 Covid-19 Vaccine ( season) Covid-19 Vaccine ( season) [place] Start: 10-08-2023 Influenza vaccination [facility] Start: 07-11-2023 End: 07-11-2023 Patient encounter procedure 07/11/2023 6:00 PM EDT Office Visit Family [facility] [address] [place] [address] Juju Richardson MD [address] [place] [address] yearly physical-see refill encounter 07/06 [facility] [place] Comment on above: yearly physical-see refill encounter 07/06 Start: 05-12-2023 ANNUAL PCP TEAM FINANCIAL SERVICES MANAGER RUBY DISEASE VISIT ANNUAL PCP TEAM CHRONIC DISEASE VISIT [place] Start: 05-12-2023 COVID-19 VACCINE (#1) COVID-19 VACCI NE (#1) [place] Comment on above: Postponed from 01/24 (Declined at this time) Start: 05-12-2023 PNEUMOCOCCAL (2 - PCV) PNEUMOCOCCAL (2 - PCV) [place] Comment on above: Postponed from 11/06 (Declined at this time) Start: 05-12-2023 Pneumococcal vaccination [place] Comment on above: Postponed from 11/06 (Declined at this time) Start: 02-06-2023 Behavioral Health Screening Behavioral Health Screening [place] Start: 02-05-2023 DEPRESSION ASSESSMENT DEPRESSION ASS ESSMENT [place] Comment on above: Postponed from 02/06 (Declined at this time) Start: 10-07-2022 Covid-19 Vaccine ( season) Covid-19 Vaccine ( season) [place] Start: 10-07-2022 Influenza vaccination C [facility] Start: 08-12-2022 ANNUAL PCP TEAM FINANCIAL SERVICES MANAGER RUBY DISEASE VISIT ANNUAL PCP TEAM CHRONIC DISEASE VISIT [place] Start: 05-11-2022 End: 07-11-2022 CBC panel - Blood by Automated count CBC Lab Routine Routine physical examination Expected: 05/11/2022, Expires: 07/11/2022 [facility] Work Phone: Comment on above: Expected: 05/11/2022 , Expires: 07/11/2022 Start: 05-11-2022 End: 07-11-2022 Comprehensive metabolic 2000 panel - Serum or Plasma COMP METABOLIC PANEL Lab Routine Routine physical examination Expected: 05/11/2022, Expires: 07/11/2022 [facility] Work Phone: Comment on above: Expected: 05/11/2022 , Expires: 07/11/2022 Start: 05-11-2022 End: 07-11-2022 Lipid 1996 panel - Serum or Plasma LIPID PANEL BASIC Lab Routine Screening for hyperlipidemia Expected: 05/11/2022, Expires: 07/11/2022 [facility] Work Phone: Comment on above: Expected: 05/11/2022 , Expires: 07/11/2022 Start: 02-06-2022 DEPRESSION ASSESSMENT DEPRESSION ASS ESSMENT [place] Start: 01-22-2022 ANNUAL PCP TEAM FINANCIAL SERVICES MANAGER RUBY DISEASE VISIT ANNUAL PCP TEAM CHRONIC DISEASE VISIT [place] Start: 10-16-2021 Adult depression screening assessment DEPRESSION SCREENING [place] Start: 10-07-2021 Influenza vaccination INFLUENZA (#1) [place] Start: 08-12-2021 End: 10-12-2021 TESTOSTERONE, FREE AND TOTAL [facility] Work Phone: Comment on above: Expected: 08/12/2021 , Expires: 10/12/2021 Start: 02-06-2021 DEPRESSION ASSESSMENT DEPRESSION ASS ESSMENT [place] Start: 11-07-2019 PNEUMOCOCCAL (2 - PCV) PNEUMOCOCCAL (2 - PCV) [place] Start: 11-07-2019 Pneumococcal vaccination Pneumococcal Vaccine (2 of 2 - PCV) [place] Start: 11-07-2019 Pneumococcal Vaccine : Pediatrics (0 to 5 Years) and At-Risk Patients (6 to 64 Years) (2 of 2 - PCV) Pneumococcal Vaccine: Pediatrics (0 to 5 Years) and At-Risk Patients (6 to 64 Years) (2 of 2 - PCV) [facility] Start: 2008 HPV Vaccine (1 - 3-d ose SCDM series) HPV Vaccine (1 - 3-dose SCDM series) [place] Start: 2000 Hepatitis B Vaccine (1 of 3 - 19+ 3-dose series) Hepatitis B Vaccine (1 of 3 - 19+ 3-dose series) [place] Start: 2000 Hepatitis B Vaccines (1 of 3 - 19+ 3-dose series) Hepatitis B Vaccines (1 of 3 - 19+ 3-dose series) [facility] Start: 07-26-1999 Anxiety Screening Anxiety Screening [place] Start: 07-26-1999 Depression Screening Depression Scre ening [place] Start: 07-26-1999 Hepatitis C screening Hepatitis C Sc reening [facility] Start: 1994 Varicella vaccination Varicell a Vaccines (1 of 2 - 13+ 2-dose series) [facility] Start: 1993 Depression Screening Depression Scre lala [facility] Start: 1986 COVID-19 VACCINE (#1) COVID-19 VACCI NE (#1) [place] Start: 1982 MMR Vaccines (1 of 1 - Standard series) MMR Vaccines (1 of 1 - Standard series) [facility] Start: 01-24-1982 COVID-19 VACCINE (#1) COVID-19 VACCI NE (#1) [place] Start: 1981 HEPATITIS B (1 of 3 - 3-dose series) HEPATITIS B (1 of 3 - 3-dose series) [place] Start: 1981 Hepatitis B Vaccine (1 of 3 - 3-dose series) Hepatitis B Vaccine (1 of 3 - 3-dose series) [place] Start: 1981 HIV screening HIV Screening [facility] Start: 1981 Lipid panel Lipid Panel [facility] Patient Education ED Hypertensio n, To Be Confirmed ED Pneumonia (Adult) [facility] Work Phone: End: 06-08-2025 US.doppler Scrotum and testicle US SCROTUM AND CONTENTS Radiology STAT Pain in both testicles 1 Occurrences starting 05/09/2024 until 06/08/2025 [place] Comment on above: 1 Occurrences starti ng 05/09/2024 until 06/08/2025 [facility] Immunizations Immunization Date Immunization Notes Care Provider Fa dani 05-09-2024 pneumococcal Conjuga te, unspecified formulation Karen Hairston APRN.PHYSICAL EDUCATION SPECIALIST Work Phone: [place] 05-09-2024 pneumococcal conjuga te (PCV20) vaccine, 20 valent (PREVNAR 20) Karen Hairston APRN.[facility] Work Phone: [place] 01-22-2021 influenza, injectabl e, quadrivalent, contains preservative Christopher Bursley MD Work Phone: [place] 01-22-2021 influenza virus vacc ine, unspecified formulation Juju Richardson MD Work Phone: [place] 12-20-2019 tetanus toxoid, redu oliver diphtheria toxoid, and acellular pertussis vaccine, adsorbed Juju Richardson MD Work Phone: [place] 12-09-2019 influenza, injectabl e, quadrivalent, contains preservative Juju Richardson MD Work Phone: [place] 11-06-2018 influenza, injectabl e, quadrivalent, contains preservative Juju Richardson MD Work Phone: [place] 11-06-2018 pneumococcal polysaccharide vaccine, 23 valent Juju Richardson MD Work Phone: [place] Payers Date Payer Category Payer Self-pay 2022 Medicaid [id number] 2014 Medicaid [employer] [employer] [employer] [id number] 2014-Present [phone] [address] [place] [id number] Medicaid [id number] 2014 Medicaid [id number] Unknown [id number] Unknown [id number] Social History Date Type Detail Facility Start: 11-12-2018 [facility] [place] Start: 11-05-1998 End: 11-05-2018 History of tobacco use Current smoker [place] Start: 11-05-1998 End: 11-05-2018 History of tobacco use Cigarette Smoker [place] Start: 11-12-2018 End: 06-08-2022 Cigarettes smoked current (pack per day) - Reported 1 [place] Start: 11-12-2018 End: 03-14-2024 Tobacco use and exposure Smokeless tobacco non-user [place] Start: 02-16-2021 End: 03-14-2024 Alcohol intake Current drinker of alcohol (finding) [place] Start: 10-17-2020 End: 01-19-2021 History SDOH Alcohol Frequency 2 [place] Start: 06-21-2016 History SDOH Alcohol Comment rare [place] Start: 10-17-2020 History SDOH Social Connections Phone 5 [place] Start: 10-17-2020 End: 01-19-2021 History SDOH Social Connections [employer] 1 [place] Start: 10-17-2020 History SDOH Social Connections Living 3 [place] Start: 10-17-2020 History SDOH Physica l Activity MPS 4 [place] Start: 10-16-2020 Education 14 [place] Start: 1980 Sex Assigned At Not on file C [facility] Start: 08-12-2021 End: 03-14-2024 Tobacco smoking status NDIS Smokes tobacco daily [place] Start: 09-15-2020 End: 08-12-2021 Exposure to SARS-CoV-2 (event) Not sure [place] Start: 06-08-2022 End: 08-15-2022 Tobacco use panel [place] Start: 08-26-2014 National Score (1-10 0), lower number is lower risk 67 [place] Are you now , , , , never or living with a partner? [place] How often to you hav e a drink containing alcohol? Monthly or less [place] How many standard dr inks containing alcohol do you have on a typical day? 3 or 4 [place] How often do you hav e 6 or more drinks on 1 occasion? Less than monthly [place] Do you feel stress - tense, restless, nervous, or anxious, or unable to sleep at night because your mind is troubled all the time - these days [OSQ] To some extent [place] (I/We) worried wheela er (my/our) food would run out before (I/we) got money to buy more. Never true [place] In the past 12 month s, was there a time when you were not able to pay the mortgage or rent on time? No [place] Tobacco smoking stat us NHIS Tobacco smoking consumption unknown [facility] How often to you hav e a drink containing alcohol? 2-4 times a month [facility] How often do you hav e 6 or more drinks on 1 occasion? Monthly [facility] Start: 1980 Sex Assigned At Male W [facility] Clinical Notes 10-15-2020 to 10-01-2024 Telephone Encounter - Tori Madden - 10/01/2024 8:57 AM EDTTelephone Encounter - Tori Madden - 10/01/2024 8:57 AM EDT Note Date & Type Note Facility 10-01-2024 Telephone encount er Note Prescription Refill Information The patient has been identified by name and date of : Yes Caregiver verified no other encounters exist for this prescription request: Yes Caregiver confirmed with patient/requestor that no other refills are due, in the near future, with this provider at this time: Yes The last office visit in the department: Does the patient have a future office visit with this provider/department: Yes Requested Prescriptions Pending Prescriptions Disp Refills albuterol HFA (VENTOLIN HFA) 90 mcg/actuation inhaler 18 g 0 Sig: Inhale 2 puffs as instructed every 4 hours as needed. Tori Louis October 01, 2024 8:58 AM [place] 10-01-2024 Miscellaneous Notes Formattin g of this note is different from the original. Prescription Refill Information The patient has been identified by name and date of : Yes Caregiver verified no other encounters exist for this prescription request: Yes Caregiver confirmed with patient/requestor that no other refills are due, in the near future, with this provider at this time: Yes The last office visit in the department: Does the patient have a future office visit with this provider/department: Yes Requested Prescriptions Pending Prescriptions Disp Refills albuterol HFA (VENTOLIN HFA) 90 mcg/actuation inhaler 18 g 0 Sig: Inhale 2 puffs as instructed every 4 hours as needed. Tori Louis October 01, 2024 8:58 AM documented in this encounter [place] 09-23-2024 Discharge summary [facility] 09-23-2024 Radiology Diagnostic study note [facility] Imaging Services [address] [place] [address] Chest PA and Lateral MR#: [id number] Acct: [id number] Name: NIKOLAS MORALES Rep #: [id number] : 1980 M 44 From: Noé Marquez MD PCP: Dr. Malachi Richardson MD Status: REG ER Study:Chest PA and Lateral Date of Exam: 09/23/24 Exam# [id number] Ordering Dr: Frederick Fernandez MD PROCEDURE: CHEST PA AND LATERAL 09/23/2024 REASON FOR EXAM: PRODUCTIVE COUGH, RALES RLL AND EGOPHONY TECHNIQUE: CHEST PA AND LATERAL COMPARISON: None. FINDINGS: Lungs/Pleura: Hyperinflated lungs. No focal consolidation, pneumothorax, or pleural effusion appreciated on either side. No significant vascular congestion. Heart/Mediastinum: Normal in size. Bones/Soft tissues: Within normal limits. RAD/Chest PA and Lateral IMPRESSION: No evidence of acute pulmonary disease. Reading Location: [id number] CC: Dr. Malachi Richardson MD; Dr. Sal Fernandez MD ~ Tanbark Peeler: Signed [facility] 09-23-2024 Discharge summary Note Date/Time September 23, 2024 6:11pm [facility] Medical Records Department [address] [place] [address] Emergency Department Summary 09/23/24 MR#: [id number] Acct: [id number] Name: NIKOLAS MORALES Rep #:[id number] : [id number] From: Sal Fernandez MD PCP: Dr. Malachi Richardson MD Status :REG ER Location: ED HPI HPI - URI History of Present Illness Chief Complaint: Cough Detail of Chief Complaint: Upper respiratory infectious symptoms that started Monday Informant: patient Onset/Context/Timing Onset: Days Context: Sudden Onset Timing: Continuous Quality: Dyspnea, intermittent wheezing, congestion and productive cough Location: Respiratory Current Severity: Mild Maximum Severity: Moderate Worsened by: - (Activity); Not Worsened By Swallowing, Eating Solids or DrinkingLiquids Relieved by: Not Relieved By Tylenol or NSAIDs Associated Symptoms Associated Symptoms: Positive for Nasal Congestion, Myalgias, Diarrhea (Mushy stools.), Shortness of Breath and Productive Cough (White to white-yellow.); Negative for Headache, Sinus Pressure, Nausea, Vomiting, Chest Pain, Nonproductive cough or Hemoptysis Narrative Narrative: Patient is a 44-year-old male. He is a smoker of 1 pack/day since age of 18. He states he has been out of his inhaler since last week. He complains of subjective fever, sweats, myalgias arthralgias. He also endorses congestion brenda productive cough of white to white yellow-colored sputum. He denies abdominalpain, nausea or vomiting. He has had several mushy stools. He has had no exposure to anyone to his knowledge with COVID. He denies urologic symptoms. He denies rash. Prior similar symptoms: Yes Recent Illness/Hospitalization: No ROS ROS ED Constitutional Constitutional ED: Reports chills, fever(s), subjective and sweats; Denies weight loss Eyes Eyes: Denies blurry vision, change in vision or diplopia ENT ENT ED: Reports rhinorrhea; Denies ear pain or sore throat Cardiovascular Cardiovascular: Denies chest pain, orthopnea, palpitations or paroxysmal nocturnal dyspnea Respiratory/Chest Respiratory/Chest: Reports cough, dyspnea, sputum and other Details: He also endorses intermittent wheezing. ; Denies dyspnea on exertion, orthopnea or paroxysmal nocturnal dyspnea Gastrointestinal Gastrointestinal: Denies abdominal pain, constipation, nausea or vomiting Musculoskeletal Musculoskeletal: Reports arthralgias and myalgias Integumentary Denies rash Neurologic Neurologic: Reports weakness; Denies headache(s) or paresthesias Hematologic/Lymphatic Hematologic/Lymphatic: Denies easy bleeding or easy bruising [facility] Medical History Asthma Home Medications ?Medication ?Instructions ?Recorded ?Last Taken ?Type prednisone 20 mg tablet 40 mg (2 x 20 mg) PO DAILY 7 days 08/10/23 Unknown Rx #14 tabs doxycycline monohydrate 100 mg 100 mg PO BID #10 CAPSU LES 09/23/24 Unknown Rx capsule prednisone 20 mg tablet 60 mg (3 x 20 mg) PO DAILY # 12 09/23/24 Unknown Rx TABLETS Allergy/AdvReac Type Severity Reaction Status Date / Time No Known Allergies Allergy Verified 09/23/24 14:23 Social History Smoking Status: Current every day smoker tobacco type: cigarettes substance use type: does not use EXAM Physical Exam Const Vital Signs: 09/23/24 14:22 09/23/24 16:22 09/23/24 16:24 Temperature 98.9 F Temperature Source Temporal Pulse Rate 97 Respiratory Rate 14 16 Respiratory Effort Normal Non-Labored Respiratory Depth Normal Respiratory Pattern Normal Blood Pressure 136/96 H Blood Pressure Mean 109 Pulse Ox 98 Oxygen Delivery Method Room Air Room Air Positive well nourished and well developed Constitutional Narrative: Patient does not appear well. Does not appear toxic either. His blood pressureis elevated. General Appearance ED: well developed; Negative for cyanotic, diaphoretic or pallor HEENT Reports moist mucous membranes HEENT Narrative: Head is atraumatic normocephalic. Ears normal. Nares patent with clear drainage. Posterior pharynx is normal. Eyes PERRL and EOMs intact bilaterally General Eye ED: Negative for pale conjunctiva or scleral icterus Neck no lymphadenopathy, supple, no meningeal signs and no JVD Resp normal respiratory effort and No clear to auscultation bilaterally Resp Narrative: Rales right lower lobe with egophony. There is wheezing noted that scattered onexpiration with forced expiration. Cardio S1 normal heart sound, S2 normal heart sound and no murmurs Rate: regular rate GI non-tender, non-distended and no masses Extremity normal to inspection and full ROM Extremity Narrative: There is no clubbing, cyanosis or mottling of the extremities. Neuro oriented x3 and CN's II-XII intact bilaterally Sensorium / Orientation: alert Psych mental status grossly normal Skin General Skin Exam: Negative for jaundice or pallor Lesions: no lesions Rashes: no rashes MDM MDM MDM Narrative Medical decision making narrative: Nurse protocol was placed for rapid antigen testing. Because he has rales with wheezing and egophony chest x-ray was obtained. He was treated with albuterol and oral prednisone for his respiratory complaints. Differential diagnosis is exacerbation of asthma due to upper respiratory infection clinically he has a right lower lobe pneumonia. If chest x-ray confirms he has a right lower lobe pneumonia we will treat with antibiotics. Since he is less than 45 years old laboratory testing was not obtained especially since he is not tachycardic, tachypneic or febrile. Furthermore he is not hypoxic. Lab Data Attestation: I reviewed the patient's lab results. Lab results narrative: Rapid antigen for influenza, RSV and COVID were all negative. Radiography Diagnostic Testing: Clinical Impression(s) from Imaging Studies Chest X-Ray 09/23/24 16:30 IMPRESSION: No evidence of acute pulmonary disease. Reading Location: [facility] Treatment and Re-Evaluation Narrative: Since patient has rales and egophony right lower lobe with negative rapid antigen for COVID influenza and RSV will treat with antibiotic. He also will receive a prescription for prednisone and will have nurse dispense the metered-dose inhaler for him to have at home Discharge Plan Triage Chief Complaint: Cough ED Provider: Sal Fernandez Dx/Rx/DC Orders Clinical Impression: Right lower lobe pneumonia, Asthma exacerbation, Elevated blood-pressure reading without diagnosis of hypertension Instructions: ED Hypertension, To Be Confirmed, ED Pneumonia (Adult) Prescriptions: New prednisone 20 mg tablet 60 mg PO DAILY Qty: 12 0RF doxycycline monohydrate 100 mg capsule 100 mg PO BID Qty: 10 0RF No Action prednisone 20 mg tablet 40 mg PO DAILY 7 Days Qty: 14 0RF Primary Care Provider: Malachi Richardson Referrals: Malachi Richardson MD [Primary Care Provider] - 3-5 Days if not improving Activity Restrictions/Additional Instructions: 1. Is in your best interest to stop smoking. 2. 2 puffs of inhaler every 2-4 hours for the next 2 to 3 days and every 4-6 hours as needed for wheezing. 3. Take medication until gone Print Language: Bermudian Disposition Disposition: Home, Self Care What to do if you have Problems For any increased pain, shortness of breath, bleeding, nausea or vomiting, chestpain, or any unexpected problems, contact your Primary Care Provider. Call [facility] ([phone]) or report to the closest Emergency Room. Call 911 if necessary. 09/23/241810 <Electronically signed by Sal Fernandez MD> Cosigner Signature (if applicable): CC: Dr. Malachi Richardson MD ~ Signed [facility] Work Phone: 1(283) 820-503708-18-2025 Hospital Discharge instructionsAdditional Instructions 1. Is in your best interest to stop smoking. 2. 2 puffs of inhaler every 2-4 hours for the next 2 to 3 days and every 4-6 hours as needed for wheezing. 3. Take medication until [facility] Work Phone: 1(377) 627-397907-17-2025 Telephone encounter Note* Telephone Encounter - Danelle Fuller - 08/22/2024 4:52 PM EDT Patient is out of his inhaler. Please expedite to his pharmacy. TY Patient has been identified by name and date of : Yes Patient phones for refill(s): Requested Prescriptions Pending Prescriptions Disp Refills albuterol HFA (VENTOLIN HFA) 90 mcg/actuation inhaler 18 g 0 Sig: Inhale 2 puffs as instructed every 4 hours as needed. Date of last office visit in primary care: 05/09/2024 Date of next office visit in primary care: 05/15/2025 Please advise. Thank you. Danelle Fuller. [place]07-17-2025 Miscellaneous Notes* Telephone Encounter - Danelle Fuller - 08/22/2024 4:52 PM EDT Patient is out of his inhaler. Please expedite to his pharmacy. TY Patient has been identified by name and date of : Yes Patient phones for refill(s): Requested Prescriptions Pending Prescriptions Disp Refills albuterol HFA (VENTOLIN HFA) 90 mcg/actuation inhaler 18 g 0 Sig: Inhale 2 puffs as instructed every 4 hours as needed. Date of last office visit in primary care: 05/09/2024 Date of next office visit in primary care: 05/15/2025 Please advise. Thank you. Danelle Fuller. documented in this encounterCenterville06-06-2025 Telephone encounter Note * Telephone Encounter - Johanna Romero RN - 07/12/2024 3:45 PM EDT Next OV: 05/15/25 [place]06-06-2025 Miscellaneous Notes* Telephone Encounter - Johanna Romero RN - 07/12/2024 3:45 PM EDT Next OV: 05/15/25 * Telephone Encounter - Brenna Wallace - 07/12/2024 3:40 PM EDT Prescription Refill Information The patient has been identified by name and date of : Yes Caregiver verified no other encounters exist for this prescription request: Yes Caregiver confirmed with patient/requestor that no other refills are due, in the near future, with this provider at this time: Yes The last office visit in the department: 05-09-24 Does the patient have a future office visit with this provider/department: Yes Requested Prescriptions Pending Prescriptions Disp Refills albuterol HFA (VENTOLIN HFA) 90 mcg/actuation inhaler 18 g 0 Sig: Inhale 2 puffs as instructed every 4 hours as needed. Brenna Louis July 12, 2024 3:41 PM documented in this encounterCenterville06-06-2025 Telephone encounter Note * Telephone Encounter - Brenna Wallace - 07/12/2024 3:40 PM EDT Prescription Refill Information The patient has been identified by name and date of : Yes Caregiver verified no other encounters exist for this prescription request: Yes Caregiver confirmed with patient/requestor that no other refills are due, in the near future, with this provider at this time: Yes The last office visit in the department: 05-09-24 Does the patient have a future office visit with this provider/department: Yes Requested Prescriptions Pending Prescriptions Disp Refills albuterol HFA (VENTOLIN HFA) 90 mcg/actuation inhaler 18 g 0 Sig: Inhale 2 puffs as instructed every 4 hours as needed. Brenna Louis July 12, 2024 3:41 PM [place]04-07-2025 Telephone encounter Note* Telephone Encounter - Makayla Clarke MA - 05/13/2024 9:56 AM EDT Pt notified and verbalized understanding Makayla Clarke MA [place]04-07-2025 Miscellaneous Notes* Telephone Encounter - Makayla Clarke MA - 05/13/2024 9:56 AM EDT Pt notified and verbalized understanding Makayla Clarke MA * Telephone Encounter - Karen Hairston APRN.CNP - 05/13/2024 9:07 AM EDT Please let patient know his US shows small cysts on both testes along with hydroceles or a small amount of fluid . These are benign findings and do not need further follow up. documented in this encounterCenterville04-07-2025 Telephone encounter Note * Telephone Encounter - Karen Hairston APRN.CNP - 05/13/2024 9:07 AM EDT Please let patient know his US shows small cysts on both testes along with hydroceles or a small amount of fluid . These are benign findings and do not need further follow up. [place]04-04-2025 Telephone encounter Note* Telephone Encounter - Tori Ferrer RN - 05/10/2024 4:51 PM EDT Patient asking if provider can advise him on his recent US results, when able. Tori Ferrer RN [place]04-04-2025 Miscellaneous Notes* Telephone Encounter - Tori Ferrer RN - 05/10/2024 4:51 PM EDT Patient asking if provider can advise him on his recent US results, when able. Tori Ferrer RN documented in this encounterCenterville04-04-2025 History of Present illness Narrative* Eun Panda RDMS - 05/10/2024 1:45 PM EDT Radiology Service Progress Note PATIENT NAME: Nikolas Morales DATE OF SERVICE: May 10, 2024 TIME: 2:40 PM PATIENT IDENTITY VERIFICATION COMPLETED USING TWO (2) IDENTIFIERS: Name and Date of confirmedby patient verbally. FALL SCREENING: Has the patient had 2 falls in the last year or 1 fall with injury or currently using an Ambulatory Assistive Device (Walker, Cane, Wheelchair, Crutches, etc.)? No PATIENT GENDER DATA: Assigned male at PATIENT RELEVANT IMPLANT DATA REVIEWED: Not Applicable PATIENT PRESENTS WITH AN IMPLANTABLE OR ATTACHED MAINTENANCE PORTER: No RADIOLOGY DEPARTMENT: Ultrasound PERIPHERAL IV DATA: Not applicable SIGNED BY: Eun Panda RDMS T May 10, 2024 2:40 PM documented in this encounterCenterville04-04-2025 NoteHNO ID: [id number] Author: EUN PANDA RDMS Service: ? Author Type: Legal Mediator Type: Progress Notes Filed: 05/10/2024 14:41 Note Text: Radiology Service Progress Note PATIENT NAME: Nikolas Morales DATE OF SERVICE: May 10, 2024 TIME: 2:40 PM PATIENT IDENTITY VERIFICATION COMPLETED USING TWO (2) IDENTIFIERS: Name and Date of confirmed by patient verbally. FALL SCREENING: Has the patient had 2 falls in the last year or 1 fall with injury or currently using an Ambulatory Assistive Device (Walker, Cane, Wheelchair, Crutches, etc.)? No PATIENT GENDER DATA: Assigned male at PATIENT RELEVANT IMPLANT DATA REVIEWED: Not Applicable PATIENT PRESENTS WITH AN IMPLANTABLE OR ATTACHED MAINTENANCE PORTER: No RADIOLOGY DEPARTMENT: Ultrasound PERIPHERAL IV DATA: Not applicable SIGNED BY: Eun Panda RDMS RVT May 10, 2024 2:40 [facility]04-03-2025 NoteHNO ID: [id number] Author: KAREN HAIRSTON APRN.PHYSICAL EDUCATION SPECIALIST Service: ? Author Type: Nurse Practitioner Type: Progress Notes Filed: 05/09/2024 19:00 Note Text: Chief Complaint Patient presents with: Physical HPI Nikolas Morales is a 43 year old male who presents here today for Above Complaints.. Patient presents for annual physical. Patient reports he has a lump on his left testicle x4 days. Patient not currently taking any medications and reports he will be starting counseling soon. Past medical history, appointments, medications, allergies reviewed. Previous Medical History PAST MEDICAL HISTORY Diagnosis Date Asthma Erectile dysfunction Generalized anxiety disorder Marijuana use Tobacco use Previous Surgical History PAST SURGICAL HISTORY Procedure Laterality Date EXTRACTION, ERUPTED TOOTH OR EXPOSED ROOT (ELEVATION AND/OR FORCEPS REMOVAL) Seminary teeth extraction Family History FAMILY HISTORY Problem Relation Age of Onset Asthma Mother Bipolar disorder Mother other (htn) Father Diabetes Paternal Grandmother other (htn) Paternal Grandmother Bipolar disorder Maternal Aunt Bipolar disorder Paternal Aunt Patient Allergies ALLERGIES No Known Allergies Current Medications Current Outpatient Medications on File Prior to Visit Medication Sig albuterol HFA (VENTOLIN HFA) 90 mcg/actuation inhaler Inhale 2 Puffs as instructed every 4 hours as needed. albuterol (PROVENTIL) 2.5 mg /3 mL (0.083 %) nebulizer solution Use 3 mL via nebulizer every 4 hours as needed for wheezing/shortness of breath. Use over 5-15minutes. (Patient not taking: Reported on 03/14/2024) FLUoxetine (PROZAC) 10 mg capsule Take 1 capsule by mouth once daily. No current facility-administered medications on file prior to visit. Social History Social History Tobacco Use Smoking status: Every Day Current packs/day: 1.00 Average packs/day: 1 pack/day for 20.0 years (20.0 ttl pk-yrs) Types: Cigarettes Smokeless tobacco: Never Substance Use Topics Alcohol use: Yes Comment: rare Drug use: Yes Frequency: 1.0 times per week Types: Marijuana Review of Symptoms REVIEW OF SYSTEMS SEE HPI EXAM: BP 145/79 Pulse 80 Wt 81 kg (178 lb 9.2 oz) BMI 24.73 kg/m? General Appearance: Well appearing, alert, in no acute distress, well-hydrated, well nourished.. Skin: Skin color, texture, turgor normal, no suspicious rashes or lesions. Neck: Supple, no adenopathy; thyroid symmetric, normal size, no bruits. Lungs: Lungs clear to auscultation. No wheezing, rhonchi, rales.. Heart: RRR without murmur, gallop, or rubs. No ectopy. Abdomen: Normal abdominal exam, Abdomen soft, non-tender. Bowel sounds normal. No masses, organomegaly. Musculoskeletal: No joint swelling, deformity, or tenderness. Peripheral Pulses: Normal. Neurologic: Gait normal. Reflexes normal and symmetric. Sensation grossly intact.. Genitalia: Normal, Penis normal. No urethral discharge. Scrotum normal to palpation. No hernia. Tender with palpation. Health Maintenance List Depression Screening Never done Anxiety Screening Never done Hepatitis B Vaccine(1 of 3 - 19+ 3-dose series) Never done Pneumococcal Vaccine(2 of 2 - PCV) due on 11/07/2019 Annual PCP Team Chronic Disease Visit due on 05/12/2023 Influenza Vaccine(1) due on 10/08/2023 Covid-19 Vaccine( - 2023- season) Never done Lipid Screening due on 12/23/2024 DTaP,Tdap,Td Vaccine(2 - Td or Tdap) due on 12/19/2029 Spirometry Completed Hepatitis C Screening Completed HIV Screening Completed ASSESSMENT/PLAN: 1. Screening for hyperlipidemia - ICD9: V77.91, ICD10: Z13.220 (primary diagnosis) - LIPID PANEL, NONFASTING 2. Routine physical examination - ICD9: V70.0, ICD10: Z00.00 - Counseled on healthy diet and regular exercise - Discussed need for and benefit of weight loss. BMI 24.73 kg/(m2) - Smoking cessation encouraged; discussed health risks and quitting strategies. Patient is not ready to quit - Patient counseled on and acknowledged vaccine benefits/risks/side effects; VIS provided: Pneumococcal - Follow up for annual exam in one year - COMPLETE BLOOD COUNT AND DIFFERENTIAL - COMPREHENSIVE METABOLIC PANEL 3. Screening for diabetes mellitus - ICD9: V77.1, ICD10: Z13.1 - HEMOGLOBIN A1C 4. Pain in both testicles - ICD9: 608.9, ICD10: N50.811, N50.812 - US SCROTUM AND CONTENTS 5. Testicle lump - ICD9: 608.89, ICD10: N50.89 - US SCROTUM AND CONTENTS 6. Encounter for immunization - ICD9: V03.89, ICD10: Z23 - PNEUMOCOCCAL VACCINE, 20 VALENT (PREVNAR 20) 7. Encounter for screening examination for other mental health and behavioral disorders - ICD9: V79.8, ICD10: Z13.39 - ANXIETY SCREENING 8. Screening for depression - ICD9: V79.0, ICD10: Z13.31 - DEPRESSION SCREENING Karen Hairston APRN.[facility]04-03-2025 History of Present illness Narrative* Karen Hairston APRN.PHYSICAL EDUCATION SPECIALIST - 05/09/2024 6:21 PM EDT Chief Complaint Patient presents with: Physical HPI Nikolas Morales is a 43 year old male who presents here today for Above Complaints.. Patient presents for annual physical. Patient reports he has a lump on his left testicle x4 days. Patient not currently taking any medications and reports he will be starting counseling soon. Past medical history, appointments, medications, allergies reviewed. Previous Medical History PAST MEDICAL HISTORY Diagnosis Date Asthma Erectile dysfunction Generalized anxiety disorder Marijuana use Tobacco use Previous Surgical History PAST SURGICAL HISTORY Procedure Laterality Date EXTRACTION, ERUPTED TOOTH OR EXPOSED ROOT (ELEVATION AND/OR FORCEPS REMOVAL) Seminary teeth extraction Family History FAMILY HISTORY Problem Relation Age of Onset Asthma Mother Bipolar disorder Mother other (htn) Father Diabetes Paternal Grandmother other (htn) Paternal Grandmother Bipolar disorder Maternal Aunt Bipolar disorder Paternal Aunt Patient Allergies ALLERGIES No Known Allergies Current Medications Current Outpatient Medications on File Prior to Visit Medication Sig albuterol HFA (VENTOLIN HFA) 90 mcg/actuation inhaler Inhale 2 Puffs as instructed every 4 hours asneeded. albuterol (PROVENTIL) 2.5 mg /3 mL (0.083 %) nebulizer solution Use 3 mL via nebulizer every 4 hours as needed for wheezing/shortness of breath. Use over 5- 15minutes. (Patient not taking: Reported on03/14/2024) FLUoxetine (PROZAC) 10 mg capsule Take 1 capsule by mouth once daily. No current facility-administered medications on file prior to visit. Social History Social History Tobacco Use Smoking status: Every Day Current packs/day: 1.00 Average packs/day: 1 pack/day for 20.0 years (20.0 ttl pk-yrs) Types: Cigarettes Smokeless tobacco: Never Substance Use Topics Alcohol use: Yes Comment: rare Drug use: Yes Frequency: 1.0 times per week Types: Marijuana Review of Symptoms REVIEW OF SYSTEMS SEE HPI EXAM: BP 145/79 Pulse 80 Wt 81 kg (178 lb 9.2 oz) BMI 24.73 kg/m General Appearance: Well appearing, alert, in no acute distress, well-hydrated, well nourished.. Skin: Skin color, texture, turgor normal, no suspicious rashes or lesions. Neck: Supple, no adenopathy; thyroid symmetric, normal size, no bruits. Lungs: Lungs clear to auscultation. No wheezing, rhonchi, rales.. Heart: RRR without murmur, gallop, or rubs. No ectopy. Abdomen: Normal abdominal exam, Abdomen soft, non-tender. Bowel sounds normal. No masses, organomegaly. Musculoskeletal: No joint swelling, deformity, or tenderness. Peripheral Pulses: Normal. Neurologic: Gait normal. Reflexes normal and symmetric. Sensation grossly intact.. Genitalia: Normal, Penis normal. No urethral discharge. Scrotum normal to palpation. No hernia. Tender with palpation. Health Maintenance List Depression Screening Never done Anxiety Screening Never done Hepatitis B Vaccine(1 of 3 - 19+ 3-dose series) Never done Pneumococcal Vaccine(2 of 2 - PCV) due on 11/07/2019 Annual PCP Team Chronic Disease Visit due on 05/12/2023 Influenza Vaccine(1) due on 10/08/2023 Covid-19 Vaccine( - season) Never done Lipid Screening due on 12/23/2024 DTaP,Tdap,Td Vaccine(2 - Td or Tdap) due on 12/19/2029 Spirometry Completed Hepatitis C Screening Completed HIV Screening Completed ASSESSMENT/PLAN: 1. Screening for hyperlipidemia - ICD9: V77.91, ICD10: Z13.220 (primary diagnosis) - LIPID PANEL, NONFASTING 2. Routine physical examination - ICD9: V70.0, ICD10: Z00.00 - Counseled on healthy diet and regular exercise - Discussed need for and benefit of weight loss. BMI 24.73 kg/(m^2) - Smoking cessation encouraged; discussed health risks and quitting strategies. Patient is not ready to quit - Patient counseled on and acknowledged vaccine benefits/risks/side effects; VIS provided: Pneumococcal - Follow up for annual exam in one year - COMPLETE BLOOD COUNT AND DIFFERENTIAL - COMPREHENSIVE METABOLIC PANEL 3. Screening for diabetes mellitus - ICD9: V77.1, ICD10: Z13.1 - HEMOGLOBIN A1C 4. Pain in both testicles - ICD9: 608.9, ICD10: N50.811, N50.812 - US SCROTUM AND CONTENTS 5. Testicle lump - ICD9: 608.89, ICD10: N50.89 - US SCROTUM AND CONTENTS 6. Encounter for immunization - ICD9: V03.89, ICD10: Z23 - PNEUMOCOCCAL VACCINE, 20 VALENT (PREVNAR 20) 7. Encounter for screening examination for other mental health and behavioral disorders - ICD9: V79.8, ICD10: Z13.39 - ANXIETY SCREENING 8. Screening for depression - ICD9: V79.0, ICD10: Z13.31 - DEPRESSION SCREENING Karen Hairston APRN.PHYSICAL EDUCATION SPECIALIST documented in this encounterCenterville03-26-2025 Telephone encounter Note * Telephone Encounter - Solo Mchugh MD - 05/01/2024 9:39 PM EDT The following approved medication requests have been transmitted electronically. Requested Prescriptions Signed Prescriptions Disp Refills albuterol HFA (VENTOLIN HFA) 90 mcg/actuation inhaler 18 g 0 Sig: Inhale 2 Puffs as instructed every 4 hours as needed. Authorizing Provider: SOLO MCHUGH MD [place]03-26-2025 Miscellaneous Notes* Telephone Encounter - Solo Mchugh MD - 05/01/2024 9:39 PM EDT The following approved medication requests have been transmitted electronically. Requested Prescriptions Signed Prescriptions Disp Refills albuterol HFA (VENTOLIN HFA) 90 mcg/actuation inhaler 18 g 0 Sig: Inhale 2 Puffs as instructed every 4 hours as needed. Authorizing Provider: SOLO MCHUGH MD * Telephone Encounter - Leroy Anne LPN - 05/01/2024 4:14 PM EDT Pt has not been seen in 2 years, needs appt. Phoned pt, appt scheduled for 05/09 with Karen. * Telephone Encounter - Brenna Wallace - 05/01/2024 3:36 PM EDT Prescription Refill Information The patient has been identified by name and date of : Yes Caregiver verified no other encounters exist for this prescription request: Yes Caregiver confirmed with patient/requestor that no other refills are due, in the near future, with this provider at this time: Yes The last office visit in the department: 05-11-22 Does the patient have a future office visit with this provider/department: No Requested Prescriptions Pending Prescriptions Disp Refills albuterol HFA (VENTOLIN HFA) 90 mcg/actuation inhaler 18 g 0 Sig: Inhale 2 Puffs as instructed every 4 hours as needed. Brenna Louis May 01, 2024 3:37 PM documented in this encounterCenterville03-26-2025 Telephone encounter Note * Telephone Encounter - Leroy Anne LPN - 05/01/2024 4:14 PM EDT Pt has not been seen in 2 years, needs appt. Phoned pt, appt scheduled for 05/09 with Karen. [place]03-26-2025 Telephone encounter Note* Telephone Encounter - Brenna Wallace - 05/01/2024 3:36 PM EDT Prescription Refill Information The patient has been identified by name and date of : Yes Caregiver verified no other encounters exist for this prescription request: Yes Caregiver confirmed with patient/requestor that no other refills are due, in the near future, with this provider at this time: Yes The last office visit in the department: 05-11-22 Does the patient have a future office visit with this provider/department: No Requested Prescriptions Pending Prescriptions Disp Refills albuterol HFA (VENTOLIN HFA) 90 mcg/actuation inhaler 18 g 0 Sig: Inhale 2 Puffs as instructed every 4 hours as needed. Brenna Louis May 01, 2024 3:37 PM [place]02-06-2025 NoteHNO ID: [id number] Author: DESHAWN ARBOLEDA MD Service: ? Author Type: Physician Type: Progress Notes Filed: 03/14/2024 16:14 Note Text: Patient presents with: Chest Congestion: SOB x1 week, vomiting x this AM, low fever HPI: Feeling sick for 1 week with wheezing. Breathing symptoms are improved compared to last week. Today he developed vomiting and diarrhea. Positive symptoms: Cough, Shortness of breath, Fever, Headache, Vomiting, Nasal Congestion, Rhinorrhea, Negative symptoms: blood in emesis/stool, OTC: albuterol. Able to keep down chicken nuggets and sports drink this afternoon. PAST MEDICAL HISTORY Diagnosis Date Asthma Erectile dysfunction Generalized anxiety disorder Marijuana use Tobacco use MEDICATIONS: Current Outpatient Medications Medication Sig albuterol HFA (VENTOLIN HFA) 90 mcg/actuation inhaler Inhale 2 Puffs as instructed every 4 hours as needed. albuterol (PROVENTIL) 2.5 mg /3 mL (0.083 %) nebulizer solution Use 3 mL via nebulizer every 4 hours as needed for wheezing/shortness of breath. Use over 5-15minutes. (Patient not taking: Reported on 03/14/2024) FLUoxetine (PROZAC) 10 mg capsule Take 1 capsule by mouth once daily. No current facility-administered medications for this visit. ALLERGIES: ALLERGIES No Known Allergies VITALS: BP 136/77 Pulse 115 Temp 37.7 ?C (99.9 ?F) Resp 18 Wt 81.2 kg (179 lb 0.2 oz) SpO2 96% BMI 24.79 kg/m? PHYSICAL EXAM: GEN: mildly ill appearing HEENT: PERRL, EOMI, conjunctiva clear Ears: canals clear. TMs without erythema, bulge, or effusion Sinuses: non-tender frontal sinus, non-tender maxillary sinuses Throat: moist mucous membranes, mild erythema, no exudate Neck: supple, no thyromegaly, no lymphadenopathy HEART: regular rate during my exam, regular rhythm, no murmurs LUNGS: clear to auscultation, no wheezes or crackles, no increased WOB ABD: Soft, non-distended, tender mid epigastrium, no masses ASSESSMENT/PLAN: 1. Gastroenteritis - ICD9: 558.9, ICD10: K52.9 (primary diagnosis) Likely infectious gastroenteritis starting today. Norovirus is prevalent in the community. Hydration with fluids encouraged. Resume normal solid intake as tolerated. Hand hygiene to reduce transmission. Follow up in the ER with signs of dehydration, increasing abdominal pain, high fever, or blood in vomit or stool. 2. Uncomplicated asthma, unspecified asthma severity, unspecified whether persistent - ICD9: 493.90, ICD10: J45.909 - suspect viral URI last week triggering asthma. - Discussed supportive care treatment with rest and inhaler. - ALBUTEROL SULFATE HFA 90 MCG/ACTUATION AEROSOL INHALER - PREDNISONE 10 MG TABLET requested. Deshawn Arboleda, [facility]02-06-2025 History of Present illness Narrative* Deshawn Arboleda MD - 03/14/2024 3:56 PM EST Patient presents with: Chest Congestion: SOB x1 week, vomiting x this AM, low fever HPI: Feeling sick for 1 week with wheezing. Breathing symptoms are improved compared to last week. Todayhe developed vomiting and diarrhea. Positive symptoms: Cough, Shortness of breath, Fever, Headache, Vomiting, Nasal Congestion, Rhinorrhea, Negative symptoms: blood in emesis/stool, OTC: albuterol. Able to keep down chicken nuggets and sports drink this afternoon. PAST MEDICAL HISTORY Diagnosis Date Asthma Erectile dysfunction Generalized anxiety disorder Marijuana use Tobacco use MEDICATIONS: Current Outpatient Medications Medication Sig albuterol HFA (VENTOLIN HFA) 90 mcg/actuation inhaler Inhale 2 Puffs as instructed every 4 hours asneeded. albuterol (PROVENTIL) 2.5 mg /3 mL (0.083 %) nebulizer solution Use 3 mL via nebulizer every 4 hours as needed for wheezing/shortness of breath. Use over 5- 15minutes. (Patient not taking: Reported on03/14/2024) FLUoxetine (PROZAC) 10 mg capsule Take 1 capsule by mouth once daily. No current facility-administered medications for this visit. ALLERGIES: ALLERGIES No Known Allergies VITALS: BP 136/77 Pulse 115 Temp 37.7 C (99.9 F) Resp 18 Wt 81.2 kg (179 lb 0.2 oz) SpO2 96% BMI 24.79 kg/m PHYSICAL EXAM: GEN: mildly ill appearing HEENT: PERRL, EOMI, conjunctiva clear Ears: canals clear. TMs without erythema, bulge, or effusion Sinuses: non-tender frontal sinus, non-tender maxillary sinuses Throat: moist mucous membranes, mild erythema, no exudate Neck: supple, no thyromegaly, no lymphadenopathy HEART: regular rate during my exam, regular rhythm, no murmurs LUNGS: clear to auscultation, no wheezes or crackles, no increased WOB ABD: Soft, non-distended, tender mid epigastrium, no masses ASSESSMENT/PLAN: 1. Gastroenteritis - ICD9: 558.9, ICD10: K52.9 (primary diagnosis) Likely infectious gastroenteritis starting today. Norovirus is prevalent in the community. Hydration with fluids encouraged. Resume normal solid intake as tolerated. Hand hygiene to reduce transmission. Follow up in the ER with signs of dehydration, increasing abdominal pain, high fever, or blood in vomit or stool. 2. Uncomplicated asthma, unspecified asthma severity, unspecified whether persistent - ICD9: 493.90, ICD10: J45.909 - suspect viral URI last week triggering asthma. - Discussed supportive care treatment with rest and inhaler. - ALBUTEROL SULFATE HFA 90 MCG/ACTUATION AEROSOL INHALER - PREDNISONE 10 MG TABLET requested. Deshawn Arboleda MD [place] Telephone encounter Note * Telephone Encounter - Krystal Sanchez - 12/11/2023 3:25 PM EST Prescription Refill Information The patient has been identified by name and date of : Yes Caregiver verified no other encounters exist for this prescription request: Yes Caregiver confirmed with patient/requestor that no other refills are due, in the near future, with this provider at this time: Yes The last office visit in the department: [id number] Does the patient have a future office visit with this provider/department: Yes Requested Prescriptions Pending Prescriptions Disp Refills albuterol (PROVENTIL) 2.5 mg /3 mL (0.083 %) nebulizer solution 180 mL 11 Sig: Use 3 mL via nebulizer every 4 hours as needed for wheezing/shortness of breath. Use over 5-15minutes. albuterol HFA (VENTOLIN HFA) 90 mcg/actuation inhaler 18 g 0 Sig: Inhale 2 Puffs as instructed every 4 hours as needed. Krystal Gong December 11, 2023 3:28 PM [place]11-04-2024 Miscellaneous Notes* Telephone Encounter - Krystal Sanchez - 12/11/2023 3:25 PM EST Prescription Refill Information The patient has been identified by name and date of : Yes Caregiver verified no other encounters exist for this prescription request: Yes Caregiver confirmed with patient/requestor that no other refills are due, in the near future, with this provider at this time: Yes The last office visit in the department: [id number] Does the patient have a future office visit with this provider/department: Yes Requested Prescriptions Pending Prescriptions Disp Refills albuterol (PROVENTIL) 2.5 mg /3 mL (0.083 %) nebulizer solution 180 mL 11 Sig: Use 3 mL via nebulizer every 4 hours as needed for wheezing/shortness of breath. Use over 5-15minutes. albuterol HFA (VENTOLIN HFA) 90 mcg/actuation inhaler 18 g 0 Sig: Inhale 2 Puffs as instructed every 4 hours as needed. Krystal Gong December 11, 2023 3:28 PM documented in this encounter[place]10-07-2024 Telephone encounter Note * Telephone Encounter - Hanna Johns - 11/13/2023 8:56 AM EDT Prescription Refill Information The patient has been identified by name and date of : Yes Caregiver verified no other encounters exist for this prescription request: Yes Caregiver confirmed with patient/requestor that no other refills are due, in the near future, with this provider at this time: Yes The last office visit in the department: 05/11/22. Seen by a different provider. Does the patient have a future office visit with this provider/department: No Requested Prescriptions Pending Prescriptions Disp Refills albuterol HFA (VENTOLIN HFA) 90 mcg/actuation inhaler 18 g 0 Sig: Inhale 2 Puffs as instructed every 4 hours as needed. Hanna Johns November 13, 2023 8:58 AM [place]10-07-2024 Miscellaneous Notes* Telephone Encounter - Hanna Johns - 11/13/2023 8:56 AM EDT Prescription Refill Information The patient has been identified by name and date of : Yes Caregiver verified no other encounters exist for this prescription request: Yes Caregiver confirmed with patient/requestor that no other refills are due, in the near future, with this provider at this time: Yes The last office visit in the department: 05/11/22. Seen by a different provider. Does the patient have a future office visit with this provider/department: No Requested Prescriptions Pending Prescriptions Disp Refills albuterol HFA (VENTOLIN HFA) 90 mcg/actuation inhaler 18 g 0 Sig: Inhale 2 Puffs as instructed every 4 hours as needed. Hanna Johns November 13, 2023 8:58 AM documented in this encounterCent[place]09-09-2024 Telephone encounter Note * Telephone Encounter - Oralia Portillo MA - 10/16/2023 3:48 PM EDT Tried to reach pt, recording states "pt is not accepting calls right now and to try again later". Oralia Portillo MA [place]09-09-2024 Miscellaneous Notes* Telephone Encounter - Oralia Portillo MA - 10/16/2023 3:48 PM EDT Tried to reach pt, recording states "pt is not accepting calls right now and to try again later". Oralia Portillo MA * Telephone Encounter - Brenna Wallace - 10/16/2023 3:08 PM EDT Prescription Refill Information The patient has been identified by name and date of : Yes Caregiver verified no other encounters exist for this prescription request: Yes Caregiver confirmed with patient/requestor that no other refills are due, in the near future, with this provider at this time: Yes The last office visit in the department: 05-11-22 Does the patient have a future office visit with this provider/department: No Requested Prescriptions Pending Prescriptions Disp Refills albuterol HFA (VENTOLIN HFA) 90 mcg/actuation inhaler 18 g 1 Sig: Inhale 2 Puffs as instructed every 4 hours as needed. Brenna M Maury Louis October 16, 2023 3:11 PM documented in this encounterCent[place]09-09-2024 Telephone encounter Note * Telephone Encounter - Brenna Wallace - 10/16/2023 3:08 PM EDT Prescription Refill Information The patient has been identified by name and date of : Yes Caregiver verified no other encounters exist for this prescription request: Yes Caregiver confirmed with patient/requestor that no other refills are due, in the near future, with this provider at this time: Yes The last office visit in the department: 05-11-22 Does the patient have a future office visit with this provider/department: No Requested Prescriptions Pending Prescriptions Disp Refills albuterol HFA (VENTOLIN HFA) 90 mcg/actuation inhaler 18 g 1 Sig: Inhale 2 Puffs as instructed every 4 hours as needed. Brenna Arcos Maury Louis October 16, 2023 3:11 PM [place]07-06-2024 Emergency department Note* Julienne Abreu RN - 08/12/2023 8:10 AM EDT Pt called for Uber ride home Julienne Abreu RN 08/12/23 08 [id number]* Julienne Abreu RN - 08/12/2023 8:10 AM EDT Pt called for Uber ride home Julienne Abreu RN 08/12/23 0812 * Julienne Abreu RN - 08/12/2023 7:21 AM EDT Assumed care of pt, report received from Salas Abreu RN 08/12/23 0721 * Salas Pickett RN - 08/12/2023 5:47 AM EDT Awaiting ride. Pending dc. Provider aware. Dairy Consultant aware. Salas Pickett RN 08/12/23 0548 * Deshawn Joaquin MD - 08/12/2023 12:04 AM EDT Emergency Department Encounter [facility] EMERGENCY DEPT Patient: Nikolas Morales : 1980 Date of Evaluation: 08/12/2023 ED Supervising Physician: Deshawn Joaquin MD I personally evaluated Nikolas Morales and made/approved the management plan and take responsibility for the patient management. This will serve as my Supervisory note and shared attestation. I did perform a substantive portion of the visit including all aspects of the Medical Decision Making. I wore appropriate PPE for the entirety of this encounter. In brief, Nikolas Morales is a 43 y.o. that presents to the emergency department for evaluation of vomiting after drinking alcohol. Patient is concerned that the alcohol is reacting to steroids he is currently taking for his poison rubina on his hand. Complains of nausea. Focused exam: Awake and alert. Lungs clear to auscultation. Heart regular rate and rhythm. Abdomen soft nondistended without focal tenderness. Brief ED course/MDM: Patient observed in the ED for several hours. He awakens easily during these repeated examinations. He exhibits alcohol intoxication. He has no hypoxia as he is followed on continuous pulse oximetry monitoring. Follow-up closely as an outpatient. Return if worse or new problems. All diagnostic, treatment, and disposition decisions were made by myself in conjunction with the Resident. I also supervised shetty portions of any procedures performed by the Resident. For all further details of the patient's emergency department visit, please see their documentation. (Comment: Please note this report has been produced using speech recognition software and may contain errors related to that system including errors in grammar, punctuation, and spelling, as well as words and phrases that may be inappropriate. If there are any questions or concerns please feel freeto contact the dictating provider for clarification.) Deshawn Joaquin MD [employer] Deshawn Joaquin MD 08/12/23 0429 * Nirmala Calvert MD - 08/12/2023 12:04 AM EDT EMERGENCY DEPARTMENT ENCOUNTER Pt Name: Nikolas Morales Birthdate 1980 Date of evaluation: 08/12/2023 ED Provider: Nirmala Calvert MD CHIEF COMPLAINT Chief Complaint Patient presents with Alcohol Intoxication Pt was found on ground outside of local bar. Pt was given 1 narcan in route and pt did not arouse. Upon arrival pt is lethargic and vomiting, a strong aroma of alcohol is also on the pt. Pt states hedrank a lot of IPA's. HISTORY OF PRESENT ILLNESS (Location/Symptom, Timing/Onset, Context/Setting, Quality, Duration, Modifying Factors, Severity) Note limiting factors. I wore appropriate PPE for the entirety of this encounter. HPI Nikolas Morales is a 43 y.o. who presents to the emergency department for alcohol intoxication. Patient states that he manage obtain testing for diabetes and he stated vomiting. He states that he is not a daily drinker. Patient is currently on steroids as an IV and feels as if he had a reaction with the alcohol. Denies any falls or injuries. Denies any head strike or loss of consciousness. Patient is alert and oriented x 3. Nursing Notes were reviewed. Limitations to history: None Outside historians: None REVIEW OF SYSTEMS Review of Systems Pertinent positives and negatives as per HPI. PAST MEDICAL HISTORY No past medical history on file. SURGICAL HISTORY No past surgical history on file. CURRENT MEDICATIONS Previous Medications No medications on file ALLERGIES Patient has no known allergies. FAMILY HISTORY No family history on file. SOCIAL HISTORY Social History Socioeconomic History Marital status: Single Social Determinants of Health Financial Resource Strain: Low Risk (10/16/2020) Received from [place] Overall Financial Resource Strain (CARDIA) Difficulty of Paying Living Expenses: Not hard at all Food Insecurity: No Food Insecurity (10/16/2020) Received from [place] Hunger Vital Sign Worried About Running Out of Food in the Last Year: Never true Ran Out of Food in the Last Year: Never true Transportation Needs: Unmet Transportation Needs (10/16/2020) Received from [place] PRAPARE - Transportation Lack of Transportation (Medical): No Lack of Transportation (Non-Medical): Yes Physical Activity: Insufficiently Active (10/16/2020) Received from [place] Exercise Vital Sign Days of Exercise per Week: 3 days Minutes of Exercise per Session: 40 min Stress: Stress Concern Present (10/16/2020) Received from [place] [employer] - Occupational Stress Questionnaire Feeling of Stress : To some extent Social Connections: Moderately Isolated (10/16/2020) Received from [place] Social Connection and Isolation Panel [NHANES] Frequency of Communication with Friends and Family: More than three times a week Frequency of Social Gatherings with Friends and Family: Once a week Attends Mandaen Services: Never Attends Club or Organization Meetings: Never Marital Status: SCREENINGS Froilan Coma Scale Best Eye Response: Spontaneous Best Verbal Response: Oriented Best Motor Response: Follows commands [place] Coma Scale Score: 15 PHYSICAL EXAM ED Triage Vitals Temp Pulse Resp BP -- -- -- -- SpO2 Temp src Heart Rate Source Patient Position -- -- -- -- BP Location FiO2 (%) -- -- Physical Exam Vitals and nursing note reviewed. Constitutional: General: He is not in acute distress. Appearance: Normal appearance. He is not ill-appearing. HENT: Head: Normocephalic and atraumatic. Mouth/Throat: Mouth: Mucous membranes are moist. Eyes: General: No scleral icterus. Conjunctiva/sclera: Conjunctivae normal. Cardiovascular: Rate and Rhythm: Normal rate and regular rhythm. Heart sounds: Normal heart sounds. Pulmonary: Effort: Pulmonary effort is normal. Breath sounds: Normal breath sounds. Abdominal: Palpations: Abdomen is soft. Tenderness: There is no abdominal tenderness. Musculoskeletal: General: Normal range of motion. Neurological: General: No focal deficit present. Mental Status: He is alert and oriented to person, place, and time. Psychiatric: Attention and Perception: He does not perceive auditory or visual hallucinations. Mood and Affect: Mood and affect normal. Speech: Speech is slurred. Thought Content: Thought content does not include homicidal or suicidal ideation. Thought content does not include homicidal or suicidal plan. DIAGNOSTIC RESULTS RADIOLOGY (Per Emergency Physician): Interpretation per the Radiologist below, if available at the time of this note: No orders to display LABS: Labs Reviewed - No data to display All other labs were within normal range or not returned as of this dictation. EMERGENCY DEPARTMENT COURSE and DIFFERENTIAL DIAGNOSIS/MDM: Vitals: Vitals: 08/12/23 0134 08/12/23 0313 08/12/23 0420 08/12/23 0517 BP: 108/74 117/84 (!) 105/92 (!) 140/94 BP Location: Left arm Right arm Patient Position: Sitting Sitting Pulse: 79 72 72 82 Resp: 19 18 18 18 Temp: 37.1 C (98.7 F) SpO2: 98% 99% 100% 100% Weight: 86.2 kg (190 lb) Height: 1.803 m (5' 11") The patient presented with a chief complaint of alcohol intoxication. Patient has no evidence of traumatic injury he has no physical complaints besides nausea. He awakens easily during repeated reassessments. He has no evidence of hypoxia on continuous pulse ox. Patient is still an intoxicated at the time of signout. He has no sober ride patient will be observed in the emergency department till sober with the plan to discharge and return precautions. I have signed out Nikolas Morales's Emergency Department care to Dr Gabriel. We discussed the pertinent history, physical exam, completed/pending test results (if applicable) and current treatment plan. Please refer to her chart for the patients remaining Emergency Department course and final disposition. 6:33 AM Nirmala Cavlert MD Diagnoses as of 08/12/23 0631 Alcoholic intoxication without complication (CMS/HCC) ([facility]) External records reviewed: none Diagnostics interpreted by me: none Discussions with other clinicians: none Chronic conditions impacting care: none Social determinants of health affecting care: none ED Medications managed: Medications ondansetron (Zofran) injection 4 mg (4 mg IntraVENous Given 08/12/23 0107) lactated ringers bolus 1,000 mL (1,000 mL IntraVENous New Bag 08/12/23 010) Prescription drugs considered: N/A PROCEDURES: Unless otherwise noted below, none Procedures FINAL IMPRESSION 1. Alcoholic intoxication without complication (CMS/HCC) (HCC) DISPOSITION Discharge 08/12/2023 04:14:24 AM PATIENT REFERRED TO: Juju Richardson MD [address] [address] Call in 3 days DISCHARGE MEDICATIONS: New Prescriptions No medications on file (Comment: Please note this report has been produced using speech recognition software and may contain errors related to that system including errors in grammar, punctuation, and spelling, as well as words and phrases that may be inappropriate. If there are any questions or concerns please feel freeto contact the dictating provider for clarification.) Nirmala Calvert MD (electronically signed) Emergency Medicine Provider Nirmala Calvert MD Resident 08/12/2333 documented in this [facility]07-06-2024 Emergency department Note* Julienne Abreu RN - 08/12/2023 7:21 AM EDT Assumed care of pt, report received from Salas Abreu RN 08/12/23 0721 [id number] Note* Salas Pickett RN - 08/12/2023 5:47 AM EDT Awaiting ride. Pending dc. Provider aware. Dairy Consultant aware. Salas Pickett RN 08/12/23 0548 [id number] Discharge instructions* Discharge Instructions* Nirmala Calvert MD - 08/12/2023 4:29 AM EDT You have been evaluated in the Emergency Department today for alcohol intoxication. You have been observed in the Emergency Department and are now able to walk on your own and are tolerating fluids/food. Please follow up with your primary care physician. Return to the Emergency Department if you experience shaking, seizures, palpitations, inability to keep down fluids, worsening or uncontrolled pain, confusion, or for any other concerning symptoms. Thank you for choosing us for your care. * Attachments The following attachments cannot be sent through Care Everywhere. * Alcohol Use - When Is Drinking a Problem? (Berm[place]) * Binge Drinking ([place]udian) documented in this [facility]07-06-2024 Physician Emergency department Note* Deshawn Joaquin MD - 08/12/2023 12:04 AM EDT Emergency Department Encounter [facility] EMERGENCY DEPT Patient: Nikolas Morales : 1980 Date of Evaluation: 08/12/2023 ED Supervising Physician: Deshawn Joaquin MD I personally evaluated Nikolas Morales and made/approved the management plan and take responsibility for the patient management. This will serve as my Supervisory note and shared attestation. I did perform a substantive portion of the visit including all aspects of the Medical Decision Making. I wore appropriate PPE for the entirety of this encounter. In brief, Nikolas Morales is a 43 y.o. that presents to the emergency department for evaluation of vomiting after drinking alcohol. Patient is concerned that the alcohol is reacting to steroids he is currently taking for his poison rubina on his hand. Complains of nausea. Focused exam: Awake and alert. Lungs clear to auscultation. Heart regular rate and rhythm. Abdomen soft nondistended without focal tenderness. Brief ED course/MDM: Patient observed in the ED for several hours. He awakens easily during these repeated examinations. He exhibits alcohol intoxication. He has no hypoxia as he is followed on continuous pulse oximetry monitoring. Follow-up closely as an outpatient. Return if worse or new problems. All diagnostic, treatment, and disposition decisions were made by myself in conjunction with the Resident. I also supervised shetty portions of any procedures performed by the Resident. For all further details of the patient's emergency department visit, please see their documentation. (Comment: Please note this report has been produced using speech recognition software and may contain errors related to that system including errors in grammar, punctuation, and spelling, as well as words and phrases that may be inappropriate. If there are any questions or concerns please feel freeto contact the dictating provider for clarification.) Deshawn Joaquin MD [facility] Deshawn Joaquin MD 08/12/23 0429 [id number] Phys[facility] Emergency department Note* Nirmala Calvert MD - 08/12/2023 12:04 AM EDT EMERGENCY DEPARTMENT ENCOUNTER Pt Name: Nikolas Morales Birthdate 1980 Date of evaluation: 08/12/2023 ED Provider: Nirmala Calvert MD CHIEF COMPLAINT Chief Complaint Patient presents with Alcohol Intoxication Pt was found on ground outside of local bar. Pt was given 1 narcan in route and pt did not arouse. Upon arrival pt is lethargic and vomiting, a strong aroma of alcohol is also on the pt. Pt states hedrank a lot of IPA's. HISTORY OF PRESENT ILLNESS (Location/Symptom, Timing/Onset, Context/Setting, Quality, Duration, Modifying Factors, Severity) Note limiting factors. I wore appropriate PPE for the entirety of this encounter. HPI Nikolas Morales is a 43 y.o. who presents to the emergency department for alcohol intoxication. Patient states that he manage obtain testing for diabetes and he stated vomiting. He states that he is not a daily drinker. Patient is currently on steroids as an IV and feels as if he had a reaction with the alcohol. Denies any falls or injuries. Denies any head strike or loss of consciousness. Patient is alert and oriented x 3. Nursing Notes were reviewed. Limitations to history: None Outside historians: None REVIEW OF SYSTEMS Review of Systems Pertinent positives and negatives as per HPI. PAST MEDICAL HISTORY No past medical history on file. SURGICAL HISTORY No past surgical history on file. CURRENT MEDICATIONS Previous Medications No medications on file ALLERGIES Patient has no known allergies. FAMILY HISTORY No family history on file. SOCIAL HISTORY Social History Socioeconomic History Marital status: Single Social Determinants of Health Financial Resource Strain: Low Risk (10/16/2020) Received from [place] Overall Financial Resource Strain (CARDIA) Difficulty of Paying Living Expenses: Not hard at all Food Insecurity: No Food Insecurity (10/16/2020) Received from [place] Hunger Vital Sign Worried About Running Out of Food in the Last Year: Never true Ran Out of Food in the Last Year: Never true Transportation Needs: Unmet Transportation Needs (10/16/2020) Received from [place] PRAPARE - Transportation Lack of Transportation (Medical): No Lack of Transportation (Non-Medical): Yes Physical Activity: Insufficiently Active (10/16/2020) Received from [place] Exercise Vital Sign Days of Exercise per Week: 3 days Minutes of Exercise per Session: 40 min Stress: Stress Concern Present (10/16/2020) Received from [place] [employer] - Occupational Stress Questionnaire Feeling of Stress : To some extent Social Connections: Moderately Isolated (10/16/2020) Received from [place] Social Connection and Isolation Panel [NHANES] Frequency of Communication with Friends and Family: More than three times a week Frequency of Social Gatherings with Friends and Family: Once a week Attends Mandaen Services: Never Attends Club or Organization Meetings: Never Marital Status: SCREENINGS Froilan Coma Scale Best Eye Response: Spontaneous Best Verbal Response: Oriented Best Motor Response: Follows commands [place] Coma Scale Score: 15 PHYSICAL EXAM ED Triage Vitals Temp Pulse Resp BP -- -- -- -- SpO2 Temp src Heart Rate Source Patient Position -- -- -- -- BP Location FiO2 (%) -- -- Physical Exam Vitals and nursing note reviewed. Constitutional: General: He is not in acute distress. Appearance: Normal appearance. He is not ill-appearing. HENT: Head: Normocephalic and atraumatic. Mouth/Throat: Mouth: Mucous membranes are moist. Eyes: General: No scleral icterus. Conjunctiva/sclera: Conjunctivae normal. Cardiovascular: Rate and Rhythm: Normal rate and regular rhythm. Heart sounds: Normal heart sounds. Pulmonary: Effort: Pulmonary effort is normal. Breath sounds: Normal breath sounds. Abdominal: Palpations: Abdomen is soft. Tenderness: There is no abdominal tenderness. Musculoskeletal: General: Normal range of motion. Neurological: General: No focal deficit present. Mental Status: He is alert and oriented to person, place, and time. Psychiatric: Attention and Perception: He does not perceive auditory or visual hallucinations. Mood and Affect: Mood and affect normal. Speech: Speech is slurred. Thought Content: Thought content does not include homicidal or suicidal ideation. Thought content does not include homicidal or suicidal plan. DIAGNOSTIC RESULTS RADIOLOGY (Per Emergency Physician): Interpretation per the Radiologist below, if available at the time of this note: No orders to display LABS: Labs Reviewed - No data to display All other labs were within normal range or not returned as of this dictation. EMERGENCY DEPARTMENT COURSE and DIFFERENTIAL DIAGNOSIS/MDM: Vitals: Vitals: 08/12/23 0134 08/12/23 0313 08/12/23 0420 08/12/23 0517 BP: 108/74 117/84 (!) 105/92 (!) 140/94 BP Location: Left arm Right arm Patient Position: Sitting Sitting Pulse: 79 72 72 82 Resp: 19 18 18 18 Temp: 37.1 C (98.7 F) SpO2: 98% 99% 100% 100% Weight: 86.2 kg (190 lb) Height: 1.803 m (5' 11") The patient presented with a chief complaint of alcohol intoxication. Patient has no evidence of traumatic injury he has no physical complaints besides nausea. He awakens easily during repeated reassessments. He has no evidence of hypoxia on continuous pulse ox. Patient is still an intoxicated at the time of signout. He has no sober ride patient will be observed in the emergency department till sober with the plan to discharge and return precautions. I have signed out Nikolas Morales's Emergency Department care to Dr Gabriel. We discussed the pertinent history, physical exam, completed/pending test results (if applicable) and current treatment plan. Please refer to her chart for the patients remaining Emergency Department course and final disposition. 6:33 AM Nirmala Calvert MD Diagnoses as of 08/12/23 0631 Alcoholic intoxication without complication ([facility]/HCC) ([facility]) External records reviewed: none Diagnostics interpreted by me: none Discussions with other clinicians: none Chronic conditions impacting care: none Social determinants of health affecting care: none ED Medications managed: Medications ondansetron (Zofran) injection 4 mg (4 mg IntraVENous Given 08/12/23106) lactated ringers bolus 1,000 mL (1,000 mL IntraVENous New Bag 08/12/23 0109) Prescription drugs considered: N/A PROCEDURES: Unless otherwise noted below, none Procedures FINAL IMPRESSION 1. Alcoholic intoxication without complication (CMS/HCC) ([facility]) DISPOSITION Discharge 08/12/2023 04:14:24 AM PATIENT REFERRED TO: Juju Richardson MD [address] [facility] [place] [address] Call in 3 days DISCHARGE MEDICATIONS: New Prescriptions No medications on file (Comment: Please note this report has been produced using speech recognition software and may contain errors related to that system including errors in grammar, punctuation, and spelling, as well as words and phrases that may be inappropriate. If there are any questions or concerns please feel freeto contact the dictating provider for clarification.) Nirmala Calvert MD (electronically signed) Emergency Medicine Provider Nirmala Calvert MD Resident 08/12/23632 [place] Phone: [phone]) 345-877806-03-2024 Telephone encounter Note* Telephone Encounter - Tracy Simental LPN - 07/10/2023 10:46 AM EDT Patient notified. Tracy Simental LPN [place]06-03-2024 Miscellaneous Notes* Telephone Encounter - Tracy Simental LPN - 07/10/2023 10:46 AM EDT Patient notified. Trcay Simental LPN * Telephone Encounter - Juju Richardson MD - 07/10/2023 8:49 AM EDT Rx sent. Agree with OV tomorrow. * Telephone Encounter - Nelsy Juarez RN - 07/07/2023 2:45 PM EDT Called and spoke with pt regarding how often he is using his Albuterol inhaler as he had prescription sent in on 05/02 with one refill. Prn medication but pt states he uses it at least 2-4 times a dayevery day. Says he is still smoking and has asthma and will get wheezy if he doesn't use it. Pt last seen 05/2022 and was put on Prozac and supposed to follow up in 1 month. Pt did not show for appt. Asked pt if he is still taking the Prozac as he had a 30 day supply sent in last April with 1 refilland none since then. Pt states he never got the refill and stopped taking it. States he is interested in seeing a therapist. Appt made for pt for Monday 07/[address] Richardson. Informed pt that he needs to come in order to continue receiving his prescriptions. Pt verbalized understanding. * Telephone Encounter - Hanna Johns - 07/07/2023 11:07 AM EDT Patient has been identified by name and date of : Patient phones for refill(s): Requested Prescriptions Pending Prescriptions Disp Refills albuterol HFA (VENTOLIN HFA) 90 mcg/actuation inhaler 18 g 1 Sig: Inhale 2 Puffs as instructed every 4 hours as needed. Date of last office visit in primary care: 05/11/2022 Date of next office visit in primary care: Visit date not found Please advise. Thank you. Hanna Johns. documented in this encounterCent[place]06-03-2024 Telephone encounter Note * Telephone Encounter - Juju Richardson MD - 07/10/2023 8:49 AM EDT Rx sent. Agree with OV tomorrow. [place]05-31-2024 Telephone encounter Note* Telephone Encounter - Nelsy Juarez, JULIET - 07/07/2023 2:45 PM EDT Called and spoke with pt regarding how often he is using his Albuterol inhaler as he had prescription sent in on 05/02 with one refill. Prn medication but pt states he uses it at least 2-4 times a dayevery day. Says he is still smoking and has asthma and will get wheezy if he doesn't use it. Pt last seen 05/2022 and was put on Prozac and supposed to follow up in 1 month. Pt did not show for appt. Asked pt if he is still taking the Prozac as he had a 30 day supply sent in last April with 1 refilland none since then. Pt states he never got the refill and stopped taking it. States he is interested in seeing a therapist. Appt made for pt for Monday 07/[address] Richardson. Informed pt that he needs to come in order to continue receiving his prescriptions. Pt verbalized understanding. [place]05-31-2024 Telephone encounter Note* Telephone Encounter - Hanna Johns - 07/07/2023 11:07 AM EDT Patient has been identified by name and date of : Patient phones for refill(s): Requested Prescriptions Pending Prescriptions Disp Refills albuterol HFA (VENTOLIN HFA) 90 mcg/actuation inhaler 18 g 1 Sig: Inhale 2 Puffs as instructed every 4 hours as needed. Date of last office visit in primary care: 05/11/2022 Date of next office visit in primary care: Visit date not found Please advise. Thank you. Hanna Johns. [place]12-15-2023 Miscellaneous Notes* Telephone Encounter - Mayelin Waddell - 01/20/2023 3:23 PM EST Patient has been identified by name and date of : Yes, Provider Dr. Richardson Date 01-20-23 Time3:25 pm Patient phones for refill(s): Requested Prescriptions Pending Prescriptions Disp Refills albuterol HFA (VENTOLIN HFA) 90 mcg/actuation inhaler 18 g 3 Sig: Inhale 2 Puffs as instructed every 4 hours as needed. Date of last office visit in primary care: 05/11/2022 Date of next office visit in primary care: Visit date not found Last 2 Encounter Wt Readings: Date: Wt: 11/14/2022 91.7 kg (202 lb 3.2 oz) 08/15/2022 90.3 kg (199 lb) Previous labs/tests for medication: Not applicable Please advise. Thank you. Mayelin Louis. documented in this encounterCenterville11-20-2023 Miscellaneous Notes* Telephone Encounter - Ursula Hernandes OCCA - 12/26/2022 12:36 PM EST JOHANA 05/11/22 NOV not scheduled * Telephone Encounter - Krystal Sanchez - 12/23/2022 5:01 PM EST Patient has been identified by name and date of : Yes Requested Prescriptions Pending Prescriptions Disp Refills sildenafil (VIAGRA) 100 mg tablet 12 tablet 0 Sig: Take 1 tablet by mouth as needed (prior to sexual intercourse). RX INSTRUCTIONS: Patient aware RX will be sent to pharmacy. No need to notify patient. Krystal Gong documented in this encounterCenterville10-17-2023 Miscellaneous Notes* Telephone Encounter - Anna Wang LPN - 11/22/2022 8:30 AM EDT Last seen 05/11/2022 * Telephone Encounter - Krystal Sanchez - 11/21/2022 4:28 PM EDT Patient has been identified by name and date of : Yes Requested Prescriptions Pending Prescriptions Disp Refills sildenafil (VIAGRA) 100 mg tablet 12 tablet 0 Sig: Take 1 tablet by mouth as needed (prior to sexual intercourse). RX INSTRUCTIONS: Patient aware RX will be sent to pharmacy. No need to notify patient. Krystal Gong documented in this encounterCenterville10-09-2023 History of Present illness Narrative* Sahil Ruiz APRN.PHYSICAL EDUCATION SPECIALIST - 11/14/2022 2:34 PM EDT Subjective HPI HPI Nikolas Morales is a 42 year old male who presents today for CC of cough, vomiting, fever. Thisstarted 1 day ago, feeling better, needs work note. Has tried nothing for relief. Symptoms are worsened by nothing. No sick exposures known. No new foods. Tolerating fluids and solids well. .Patient presents with: Vomiting: Fever, cough x 1 day PAST MEDICAL HISTORY Diagnosis Date Asthma Marijuana use Tobacco use PAST SURGICAL HISTORY Procedure Laterality Date EXTRACTION, ERUPTED TOOTH OR EXPOSED ROOT (ELEVATION AND/OR FORCEPS REMOVAL) Seminary teeth extraction ALLERGIES Patient has no known allergies. MEDICATIONS albuterol (PROVENTIL) 2.5 mg /3 mL (0.083 %) nebulizer solution Use 3 mL via nebulizer every 4 hours as needed for wheezing/shortness of breath. Use over 5-15minutes. albuterol HFA (VENTOLIN HFA) 90 mcg/actuation inhaler Inhale 2 Puffs as instructed every 4 hours asneeded. sildenafil (VIAGRA) 100 mg tablet Take 1 tablet by mouth as needed (prior to sexual intercourse). FLUoxetine (PROZAC) 10 mg capsule Take 1 capsule by mouth once daily. fluticasone (FLONASE) 50 mcg/actuation nasal spray Use 2 Sprays in each nostril once daily. Rinse mouth after use. cetirizine (ZYRTEC) 5 mg tablet Take 1 tablet by mouth once daily. FAMILY HISTORY Problem Relation Age of Onset Asthma Mother Bipolar disorder Mother other (htn) Father Diabetes Paternal Grandmother other (htn) Paternal Grandmother Bipolar disorder Maternal Aunt Bipolar disorder Paternal Aunt Social History Tobacco Use Smoking status: Every Day Packs/day: 1.00 Years: 20.00 Additional pack years: 0.00 Total pack years: 20.00 Types: Cigarettes Smokeless tobacco: Never Substance Use Topics Alcohol use: Yes Comment: rare Drug use: Yes Frequency: 1.0 times per week Types: Marijuana Review of Systems Constitutional: Negative for fever. HENT: Negative for congestion, ear pain, nosebleeds and sore throat. Respiratory: Positive for cough. Negative for shortness of breath and wheezing. Gastrointestinal: Positive for vomiting. Negative for abdominal pain and diarrhea. Musculoskeletal: Negative for neck pain. Objective Blood pressure 130/80, pulse 85, temperature 36.7 C (98 F), resp. rate 21, weight 91.7 kg (202 lb 3.2 oz), SpO2 98 %. Physical Exam Constitutional: General: He is not in acute distress. Appearance: Normal appearance. He is not toxic-appearing. Cardiovascular: Rate and Rhythm: Normal rate and regular rhythm. Heart sounds: Normal heart sounds. Pulmonary: Effort: Pulmonary effort is normal. Breath sounds: Normal breath sounds. Abdominal: General: Bowel sounds are normal. Palpations: Abdomen is soft. Tenderness: There is no abdominal tenderness. Skin: General: Skin is warm and dry. ASSESSMENT/PLAN: 1. Viral syndrome - ICD9: 079.99, ICD10: B34.9 - Discussed viral etiology and rationale for treatment. - Symptomatic treatment with prn analgesia - Supportive care with fluids and rest - Follow up in 3-5 days if symptoms persist or sooner if worsening of symptoms Sahil Ruiz APRN.JUAN ANTONIO documented in this encounterCenterville09-18-2023 Miscellaneous Notes* Telephone Encounter - Surekha Ku RN - 10/24/2022 4:28 PM EDT Patient calls to request refill of albuterol inhaler. Patient reports he needs the inhaler not the nebulizer rakel. Pended. Last OV: 05/11/2022 Next OV: none Surekha Ku RN documented in this encounterCenterville09-18-2023 Miscellaneous Notes* Telephone Encounter - Juju Richardson MD - 10/24/2022 1:22 PM EDT New rx sent with updated dosing. * Telephone Encounter - Anya Townsend LPN - 10/24/2022 12:13 PM EDT Pharmacist calling for a check on theAlbuterol nebulizer solution. the qty they received is for 1 dose only. Please review. Medicatoin comes in a box of 30 (90 ml) and if pt is chronic and using morethatn once a day may need multiple boxes at a time with refills. Please review. Anya Townsend LPN documented in this encounterCenterville09-18-2023 Miscellaneous Notes* Telephone Encounter - Ariela Damico MA - 10/24/2022 9:32 AM EDT NOV none scheduled Ariela Damico MA * Telephone Encounter - Brenna Penny - 10/24/2022 9:19 AM EDT Patient has been identified by name and date of : Yes Last office visit in this department: 05/11/2022 RX INSTRUCTIONS: Patient aware RX will be sent to pharmacy. No need to notify patient. Patient phones requesting refills as follows: Requested Prescriptions Pending Prescriptions Disp Refills albuterol (PROVENTIL) 2.5 mg /3 mL (0.083 %) nebulizer solution 3 mL 11 Sig: Use 3 mL via nebulizer every 4 hours as needed for wheezing/shortness of breath. Use over 5-15minutes. Please review and advise. Brenna Penny documented in this encounterCenterville08-30-2023 Miscellaneous Notes* Telephone Encounter - Zainab Ferraro - 10/05/2022 4:03 PM EDT Patient has been identified by name and date of : Yes Last office visit in this department: 05/11/2022 Labs-08/12/21 NOV-none RX INSTRUCTIONS: Patient aware RX will be sent to pharmacy. No need to notify patient. Patient phones requesting refills as follows: Requested Prescriptions Pending Prescriptions Disp Refills sildenafil (VIAGRA) 100 mg tablet 12 tablet 0 Sig: Take 1 tablet by mouth as needed (prior to sexual intercourse). Please review and advise. Zainab Ferraro documented in this encounterCenterville07-11-2023 Miscellaneous Notes* Telephone Encounter - Veena Lenz LPN - 08/16/2022 8:33 AM EDT Patient notified.Veena Lenz LPN * Telephone Encounter - Alyssa Benavides PA - 08/16/2022 8:19 AM EDT Please let patient know his herpes and zoster swab came back negative. documented in this encounterCenterville07-06-2023 Miscellaneous Notes* Telephone Encounter - Millie Guzmán Ma - 08/11/2022 4:52 PM EDT Patient last visit 05/31/22 Follow up appointment scheduled none Millie Guzmán Ma * Telephone Encounter - Lexus Louis - 08/11/2022 4:48 PM EDT Patient has been identified by name and date of : Yes Requested Prescriptions Pending Prescriptions Disp Refills sildenafil (VIAGRA) 100 mg tablet 12 tablet 0 Sig: Take 1 tablet by mouth as needed (prior to sexual intercourse). RX INSTRUCTIONS: Patient is requesting this is sent today. Patient aware RX will be sent to pharmacy. No need to notify patient. Lexus Hussein Pss documented in this encounterCenterville05-17-2023 History of Present illness Narrative* Deshawn Arboleda MD - 06/22/2022 11:02 AM EDT Patient presents with: Vomiting: Fever x 2 days HPI: Feeling sick since yesterday. His son was seen recently for gastroenteritis. Positive symptoms: Fever, Vomiting, Cough, Nasal Congestion, Rhinorrhea, Body Aches, Diarrhea, Negative symptoms: blood in stool, abdominal pain, OTC: Ibuprofen MEDICATIONS: Current Outpatient Medications Medication Sig albuterol HFA (VENTOLIN HFA) 90 mcg/actuation inhaler Inhale 2 Puffs as instructed every 4 hours asneeded. sildenafil (VIAGRA) 100 mg tablet Take 1 tablet by mouth as needed (prior to sexual intercourse). FLUoxetine (PROZAC) 10 mg capsule Take 1 capsule by mouth once daily. albuterol (PROVENTIL) 2.5 mg /3 mL (0.083 %) nebulizer solution Use 3 mL via nebulizer every 4 hours as needed for wheezing/shortness of breath. Use over 5-15minutes. fluticasone (FLONASE) 50 mcg/actuation nasal spray Use 2 Sprays in each nostril once daily. Rinse mouth after use. cetirizine (ZYRTEC) 5 mg tablet Take 1 tablet by mouth once daily. No current facility-administered medications for this visit. ALLERGIES: ALLERGIES No Known Allergies VITALS: BP 132/80 Pulse 87 Temp 36.6 C (97.9 F) Resp 21 Wt 91.5 kg (201 lb 12.8 oz) SpO2 99% BMI 27.95 kg/m PHYSICAL EXAM: GEN: mildly ill appearing HEENT: PERRL, EOMI, conjunctiva clear Neck: supple, no thyromegaly, no lymphadenopathy HEART: regular rate and rhythm, no murmurs LUNGS: clear to auscultation, no wheezes or crackles, no increased WOB ABD: Soft, non-distended, non-tender, no masses ASSESSMENT/PLAN: 1. Gastroenteritis - ICD9: 558.9, ICD10: K52.9 Hydration with fluids encouraged. Resume normal solid intake as tolerated. Limit antidiarrheal OTC to occasional use when required. Hand hygiene to reduce transmission. Follow up in the ER with signs of dehydration, increasing abdominal pain, high fever, or blood in vomit or stool. Deshawn Arboleda MD documented in this encounterCenterville04-17-2023 Miscellaneous Notes* Telephone Encounter - Brenna Mendiola Pss - 05/23/2022 4:32 PM EDT Pharmacy [facility] Patient has been identified by name and date of : Yes Patient aware RX will be sent to pharmacy. No need to notify patient. Patient phones for refill(s): Requested Prescriptions Pending Prescriptions Disp Refills albuterol HFA (VENTOLIN HFA) 90 mcg/actuation inhaler 18 g 3 Sig: Inhale 2 Puffs as instructed every 4 hours as needed. Date of last office visit : 05/11/2022 Date of next office visit : 06/08/2022 Last 2 Encounter Wt Readings: Date: Wt: 05/11/2022 93 kg (205 lb) 08/12/2021 89.4 kg (197 lb 3.2 oz) Please advise. Brenna Mendiola Pss documented in this encounterCenterville04-05-2023 History of Present illness Narrative* Nay Zhang APRN.PHYSICAL EDUCATION SPECIALIST - 05/11/2022 4:11 PM EDT Chief Complaint Patient presents with: Physical HPI Nikolas Morales is a 41 year old male who presents here today for Above Complaints. Nikolas is an established patient of Dr. Dylan MD. He is a new patient to me today. Concerns today.. Routine wellness. Needing refills. Borderline high BP in office. No prior dx of HTN Current smoker --- did admit to smoking about 15 minutes prior to appointment. Last 14 Encounter BP Readings: Date: BP: 05/11/2022 138/68 08/12/2021 130/88[recheck[ 02/16/2021 128/78 01/22/2021 120/80 11/08/2020 136/84 10/19/2020 130/80 10/15/2020 138/84 12/20/2019 136/82 03/13/2019 134/86 11/23/2018 150/90 11/21/2018 126/78 11/12/2018 146/100 11/06/2018 146/96 07/19/2018 138/90 Smoking -- Smokes less than 1/2 pack her day. Has been smoking since age 18. Has quite in the past. Hesitant about smoking cessation at this time. Unsure if wanting aide in cessation at this time. Anxiety --- Does report increase in stressors. Admits that he resorts to smoking as relaxation mechanism. Reports feeling tension in neck for the past week or so. L > R side of neck. Denies any fall or injury. No decreased ROM, swelling, or redness. Leads to headaches occasionally. Reports more anxiety over depression. Has never been on SSRI/SNRI but does report son is on Prozac d/t anxiety and has good relief with this. Past medical history, appointments, medications, allergies reviewed. Previous Medical History PAST MEDICAL HISTORY Diagnosis Date Asthma Marijuana use Tobacco use Previous Surgical History PAST SURGICAL HISTORY Procedure Laterality Date EXTRACTION, ERUPTED TOOTH OR EXPOSED ROOT (ELEVATION AND/OR FORCEPS REMOVAL) Seminary teeth extraction Family History FAMILY HISTORY Problem Relation Age of Onset Asthma Mother Bipolar disorder Mother other (htn) Father Diabetes Paternal Grandmother other (htn) Paternal Grandmother Bipolar disorder Maternal Aunt Bipolar disorder Paternal Aunt Patient Allergies ALLERGIES No Known Allergies Current Medications Current Outpatient Medications on File Prior to Visit Medication Sig albuterol HFA (VENTOLIN HFA) 90 mcg/actuation inhaler Inhale 2 Puffs as instructed every 4 hours asneeded. sildenafil (VIAGRA) 100 mg tablet Take 1 tablet by mouth as needed (prior to sexual intercourse). albuterol (PROVENTIL) 2.5 mg /3 mL (0.083 %) nebulizer solution Use 3 mL via nebulizer every 4 hours as needed for wheezing/shortness of breath. Use over 5-15minutes. fluticasone (FLONASE) 50 mcg/actuation nasal spray Use 2 Sprays in each nostril once daily. Rinse mouth after use. cetirizine (ZYRTEC) 5 mg tablet Take 1 tablet by mouth once daily. No current facility-administered medications on file prior to visit. Social History Social History Tobacco Use Smoking status: Every Day Packs/day: 1.00 Years: 20.00 Pack years: 20.00 Types: Cigarettes Smokeless tobacco: Never Substance Use Topics Alcohol use: Yes Comment: rare Drug use: Yes Frequency: 1.0 times per week Types: Marijuana REVIEW OF SYSTEMS: as above Reviewed relevant PMHx, PSHx, Social Hx, current medications and allergies. Review of Symptoms REVIEW OF SYSTEMS See HPI. EXAM: BP 138/68 (BP Site: Left Arm, BP Position: Sitting, BP Cuff Size: Large Adult) Pulse 84 Resp 16 Ht 181 cm (5' 11.25") Wt 93 kg (205 lb) BMI 28.39 kg/m General Appearance: Well appearing, alert, in no acute distress, well-hydrated, well nourished.. Skin: Skin color, texture, turgor normal, no suspicious rashes or lesions. Head: Normocephalic, no masses, lesions, tenderness or abnormalities. Lungs: Lungs clear to auscultation. No wheezing, rhonchi, rales.. Heart: RRR without murmur, gallop, or rubs. No ectopy. Abdomen: Normal abdominal exam, Abdomen soft, non-tender. Bowel sounds normal. No masses, organomegaly. Neurologic: Gait normal. Reflexes normal and symmetric. Sensation grossly intact.. Health Maintenance List HEPATITIS B(1 of 3 - 3-dose series) Never done PNEUMOCOCCAL(2 - PCV) due on 11/07/2019 DEPRESSION ASSESSMENT due on 02/05/2023 COVID-19 VACCINE(1) due on 05/12/2023 ANNUAL PCP TEAM CHRONIC DISEASE VISIT due on 08/12/2022 INFLUENZA(Season Ended) due on 10/07/2022 LIPID SCREEN due on 12/23/2024 DTAP,TDAP,TD(2 - Td or Tdap) due on 12/19/2029 SPIROMETRY Completed HEPATITIS C SCREENING Completed HIV SCREENING Completed ASSESSMENT/PLAN: 1. Erectile dysfunction, unspecified erectile dysfunction type - ICD9: 607.84, ICD10: N52.9 (primary diagnosis) Stable. Well controlled with current regimen. Refilled. - SILDENAFIL 100 MG TABLET 2. Screening for hyperlipidemia - ICD9: V77.91, ICD10: Z13.220 - LIPID PANEL BASIC 3. Routine physical examination - ICD9: V70.0, ICD10: Z00.00 - Counseled on healthy diet and regular exercise - Discussed need for and benefit of weight loss. BMI 28.39 kg/(m^2) - Smoking cessation encouraged; discussed risks to health and quitting strategies. Patient is contemplative and 4-10 minutes of counseling given - Counseled on limiting alcohol intake to 2 drinks per day - Follow up for annual exam in one year - COMP METABOLIC PANEL - CBC 4. Mild intermittent asthma without complication - ICD9: 493.90, ICD10: J45.20 Mild intermittent Asthma stable - Continue current meds - Avoidance of triggers recommended - Asthma Action Plan reviewed - Asthma education of Defined asthma, Reviewed signs and symptoms, Instruction on inhalation device/technique, Peak flow instruction/technique, Monitoring of control by symptoms, Monitoring of control by peak flow zone use, Patient was given Asthma Program Patient Education folder, environmental control: avoidance of precipitants, use of allergy medications, and smoking cessation encouraged, and rinsing after each inhaled steroid use - Flu shot in the fall recommended 5. Elevated BP without diagnosis of hypertension - ICD9: 796.2, ICD10: R03.0 - Encouraged dietary sodium restriction/DASH diet - Recommended regular aerobic exercise. - Recommend home blood pressure monitoring, to bring results in on next visit - Encouraged avoidance of excessive alcohol intake - Follow up in 1 month for BP recheck. - Goal of BP <130/80 - Patient counseled on smoking cessation. 6. HONEY (generalized anxiety disorder) - ICD9: 300.02, ICD10: F41.1 HONEY leading to likely tension headaches based on HPI. Discussed prozac vs wellbutrin (wellbutrin will aide in smoking cessation as well). Start prozac 10 mg daily. If no improvement, may switch to wellbutrin. RTO in 1 month to reassess. Stabilizing anxiety and stress may improve borderline high BP as well. 7. Smoker - ICD9: 305.1, ICD10: F17.200 - Cessation encouraged. - Physiologic and physical aspects of tobacco addiction as well as strategies for quitting were discussed. - Counseling was given focusing on the harmful effects of this addiction especially given the patient's medical condition(s) which will be worsened because of the chemicals in tobacco. - Counseling was given 3-4 minutes. - Recommended to called 1-800-QUIT NOW RTO in 1 months, sooner if needed, for BP check and HONEY reassessment. Prescription instructions reviewed with patient as applicable. Potential red flag symptoms discussed with the patient. Reviewed appropriate action plan to take if red flag symptoms occur. Patient agreeable to treatment plan. Nay Fleming APRN.PHYSICAL EDUCATION SPECIALIST [address] [place] [address] documented in this encounterCenterville03-21-2023 Miscellaneous Notes* Telephone Encounter - Hanna Johns - 04/26/2022 2:36 PM EDT Patient has been identified by name and date of : Yes Requested Prescriptions Pending Prescriptions Disp Refills albuterol HFA (VENTOLIN HFA) 90 mcg/actuation inhaler 18 g 3 Sig: Inhale 2 Puffs as instructed every 4 hours as needed. RX INSTRUCTIONS: Patient aware RX will be sent to pharmacy. No need to notify patient. Hanna Johns documented in this encounterCenterville03-08-2023 Miscellaneous Notes* Telephone Encounter - Nelsy Harrison LPN - 04/13/2022 10:01 AM EST Patient notified of making appt, verbalizes understanding of instructions. Pt stated he will call in to make appt. Nelsy Harrison LPN Patient phones requesting refills as follows: Requested Prescriptions Pending Prescriptions Disp Refills sildenafil (VIAGRA) 100 mg tablet 12 tablet 0 Sig: Take 1 tablet by mouth as needed (prior to sexual intercourse). Please review and advise. Nelsy Harrison LPN * Telephone Encounter - Juju Richardson MD - 04/13/2022 8:36 AM EST Viagra does not come in 75 mg tablets. Will increase to 100 mg. Overdue for annual physical. Recommend OV in next 1-2 months. * Telephone Encounter - Brenna Louis - 04/12/2022 11:17 AM EST Nikolas needs a refill on his sildenafil, but would like to know if the dose can be increased to 75 mg. Please contact him at [phone] documented in this encounterCenterville02-23-2023 Miscellaneous Notes* Telephone Encounter - Brenna Mendiola Pss - 03/31/2022 9:07 AM EST Pharmacy verified in Epic Patient has been identified by name and date of : Yes Patient aware RX will be sent to pharmacy. No need to notify patient. Patient phones for refill(s): Requested Prescriptions Pending Prescriptions Disp Refills sildenafil (VIAGRA) 50 mg tablet 12 tablet 0 Sig: Take 1 tablet by mouth as needed (prior to sexual intercourse). Date of last office visit : 08/12/2021 Date of next office visit : Visit date not found Last 2 Encounter Wt Readings: Date: Wt: 08/12/2021 89.4 kg (197 lb 3.2 oz) 02/16/2021 94 kg (207 lb 3.2 oz) Not applicable Please advise. Brenna Mendiola Pss documented in this encounterCenterville02-16-2023 Miscellaneous Notes* Telephone Encounter - Anya Townsend LPN - 03/24/2022 2:41 PM EST Called pt and he wanted the prescription to be sent now to [facility]. Pt going to check to see if they can pull the prescription from [place]. If there is a problems he will call back. Anya Townsend LPN * Telephone Encounter - Danelle Luciano APRN.CNP - 03/23/2022 2:41 PM EST Prescriptions with refills at pharmacy Danelle Luciano APRN.CNP * Telephone Encounter - Gay Merchant LPN - 03/23/2022 2:36 PM EST JOHANA 08/12/21 No future visit scheduled. * Telephone Encounter - Cassidy Harris - 03/23/2022 1:02 PM EST Patient has been identified by name and date of : Yes Requested Prescriptions Pending Prescriptions Disp Refills albuterol HFA (VENTOLIN HFA) 90 mcg/actuation inhaler 18 g 3 Sig: Inhale 2 Puffs as instructed every 4 hours as needed. RX INSTRUCTIONS: Patient aware RX will be sent to pharmacy. No need to notify patient. Cassidy Harris documented in this encounterCenterville02-07-2023 Miscellaneous Notes* Telephone Encounter - Angelica White LPN - 03/15/2022 2:19 PM EST JOHANA 08/12/21 NOV no upcoming appt noted * Telephone Encounter - Hanna Johns - 03/15/2022 11:31 AM EST Patient has been identified by name and date of : Yes Requested Prescriptions Pending Prescriptions Disp Refills sildenafil (VIAGRA) 50 mg tablet 12 tablet 0 Sig: Take 1 tablet by mouth as needed (prior to sexual intercourse). RX INSTRUCTIONS: Patient aware RX will be sent to pharmacy. No need to notify patient. Hanna Johns documented in this encounterCenterville01-17-2023 Miscellaneous Notes* Telephone Encounter - Joann Catalan Pss - 02/22/2022 1:10 PM EST Patient has been identified by name and date of : Yes Requested Prescriptions Pending Prescriptions Disp Refills albuterol HFA (VENTOLIN HFA) 90 mcg/actuation inhaler 18 g 3 Sig: Inhale 2 Puffs as instructed every 4 hours as needed. RX INSTRUCTIONS: Patient aware RX will be sent to pharmacy. No need to notify patient. Joann Louis documented in this encounterCenterville01-16-2023 Miscellaneous Notes* Telephone Encounter - Carly Marrufo MA - 02/21/2022 2:33 PM EST Patient has been identified by name and date of : Yes Requested Prescriptions Pending Prescriptions Disp Refills sildenafil (VIAGRA) 50 mg tablet 12 tablet 0 Sig: Take 1 tablet by mouth as needed (prior to sexual intercourse). albuterol (PROVENTIL) 2.5 mg /3 mL (0.083 %) nebulizer solution 3 mL 11 Sig: Use 3 mL via nebulizer every 4 hours as needed for wheezing/shortness of breath. Use over 5-15minutes. RX INSTRUCTIONS: Patient aware RX will be sent to pharmacy. No need to notify patient. Carly Marrufo MA Johana; 08/2021 No appointment scheduled Last refill; 10/2021 * Telephone Encounter - Veena Bates Pss - 02/19/2022 9:49 AM EST Patient has been identified by name and date of : Yes Last office visit in this department: 08/12/2021 RX INSTRUCTIONS: Patient aware RX will be sent to pharmacy. No need to notify patient. Patient phones requesting refills as follows: Requested Prescriptions Pending Prescriptions Disp Refills sildenafil (VIAGRA) 50 mg tablet 12 tablet 0 Sig: Take 1 tablet by mouth as needed (prior to sexual intercourse). albuterol (PROVENTIL) 2.5 mg /3 mL (0.083 %) nebulizer solution 3 mL 11 Sig: Use 3 mL via nebulizer every 4 hours as needed for wheezing/shortness of breath. Use over 5-15minutes. Please review and advise. Veena Louis documented in this encounterCenterville12-29-2022 Miscellaneous Notes* Telephone Encounter - Prachi Stein - 02/03/2022 10:18 AM ESTSummary: Refill Patient has been identified by name and date of : Yes Last office visit in this department: 08/12/2021 RX INSTRUCTIONS: Patient aware RX will be sent to pharmacy. No need to notify patient. Patient phones requesting refills as follows: Requested Prescriptions Pending Prescriptions Disp Refills albuterol (PROVENTIL) 2.5 mg /3 mL (0.083 %) nebulizer solution 3 mL 11 Sig: Use 3 mL via nebulizer every 4 hours as needed for wheezing/shortness of breath. Use over 5-15minutes. Please review and advise. Prachi Stein documented in this encounterCenterville09-21-2022 Miscellaneous Notes* Telephone Encounter - Oralia Portillo Ma - 10/27/2021 11:46 AM EDT Last office visit: 08/12/21 F/u scheduled: none Oralia Portillo Ma * Telephone Encounter - [place]rystal Ocampo [facility] [place] 10/27/2021 11:38 AM EDT Patient has been identified by name and date of : Yes Requested Prescriptions Pending Prescriptions Disp Refills sildenafil (VIAGRA) 50 mg tablet 12 tablet 0 Sig: Take 1 tablet by mouth as needed (prior to sexual intercourse). RX INSTRUCTIONS: Patient aware RX will be sent to pharmacy. No need to notify patient. [place]rystal [place]iselda [facility] [place] documented in this encounterCenterville08-30-2022 Miscellaneous Notes* Telephone Encounter - Tracy Simental LPN - 10/05/2021 5:16 PM EDT JOHANA 09/03/21 No upcoming appointment scheduled. Tracy Simental LPN * Telephone Encounter - Hanna Johns - 10/05/2021 4:27 PM EDT Patient has been identified by name and date of : Yes Requested Prescriptions Pending Prescriptions Disp Refills albuterol HFA (VENTOLIN HFA) 90 mcg/actuation inhaler 18 g 3 Sig: Inhale 2 Puffs as instructed every 4 hours as needed. RX INSTRUCTIONS: Patient aware RX will be sent to pharmacy. No need to notify patient. Hanna Johns documented in this encounterCenterville08-25-2022 Miscellaneous Notes* Telephone Encounter - Oralia Portillo Ma - 09/30/2021 4:06 PM EDT Last office visit: 08/12/21 Follow up: None Oralia Portillo Ma * Telephone Encounter - Mayelin Louis - 09/30/2021 3:44 PM EDT Patient has been identified by name and date of : Yes Requested Prescriptions Pending Prescriptions Disp Refills sildenafil (VIAGRA) 50 mg tablet 12 tablet 0 Sig: Take 1 tablet by mouth as needed (prior to sexual intercourse). RX INSTRUCTIONS: Patient aware RX will be sent to pharmacy. No need to notify patient. Mayelin Townsend Pss documented in this encounterCenterville07-29-2022 Miscellaneous Notes* Telephone Encounter - Angelica White LPN - 09/03/2021 12:31 PM EDT Attempted to call both patient and his spouse and both numbers are not currently working numbers. Letter sent to patient to contact office for results since unable to reach them. Also will attempt tosend [employer] message. * Telephone Encounter - Angelica White LPN - 09/03/2021 12:30 PM EDT ----- Message from Juju Richardson MD sent at 09/03/2021 9:31 AM EDT ----- Labs are normal so far. Just waiting on his testosterone results. We will contact him when it comesback. documented in this encounterCenterville07-07-2022 History of Present illness Narrative* Juju Richardson MD - 08/12/2021 2:51 PM EDT Chief Complaint Patient presents with: Erectile Dysfunction: medication for HPI Nikolas Morales is a 41 year old male who presents here today for Above Complaints. Patient states that in the last month he has had trouble obtaining and maintaining an erection which started shortly after he and his decided to split up. Is with a new partner and has some fearabout disappointing her. Not taking any new medications and is no longer using marijuana. Started smoking about 2-3 months ago again. Does not wake up with erection as much as he used to. Is able to get an erection during masturbation with watching pornography, but is not as rigid. Would like to try medication. Has not been on medication in the past. No longer taking Wellbutrin, made him feel anxious. Not ready to quit smoking yet. Past medical history, appointments, medications, allergies reviewed. Previous Medical History PAST MEDICAL HISTORY Diagnosis Date Asthma Marijuana use Tobacco use Previous Surgical History PAST SURGICAL HISTORY Procedure Laterality Date EXTRACTION, ERUPTED TOOTH OR EXPOSED ROOT (ELEVATION AND/OR FORCEPS REMOVAL) Seminary teeth extraction Family History FAMILY HISTORY Problem Relation Age of Onset Asthma Mother Bipolar disorder Mother other (htn) Father Diabetes Paternal Grandmother other (htn) Paternal Grandmother Bipolar disorder Maternal Aunt Bipolar disorder Paternal Aunt Patient Allergies ALLERGIES No Known Allergies Current Medications Current Outpatient Medications on File Prior to Visit Medication Sig albuterol HFA (VENTOLIN HFA) 90 mcg/actuation inhaler Inhale 2 Puffs as instructed every 4 hours asneeded. cetirizine (ZYRTEC) 5 mg tablet Take 1 tablet by mouth once daily. albuterol (PROVENTIL) 2.5 mg /3 mL (0.083 %) nebulizer solution Use 3 mL via nebulizer every 4 hours as needed for wheezing/shortness of breath. Use over 5-15minutes. fluticasone (FLONASE) 50 mcg/actuation nasal spray Use 2 Sprays in each nostril once daily. Rinse mouth after use. dextromethorphan-guaiFENesin (MUCINEX DM) 30-600 mg per tablet Take 1 tablet by mouth twice daily. (Patient not taking: Reported on 08/12/2021 ) buPROPion SR (WELLBUTRIN SR) 150 mg 12 hr tablet Take one tablet daily for three days then increaseto one tablet twice a day (Patient not taking: Reported on 08/12/2021 ) No current facility-administered medications on file prior to visit. Social History Social History Tobacco Use Smoking status: Current Every Day Smoker Packs/day: 1.00 Years: 20.00 Pack years: 20.00 Types: Cigarettes Smokeless tobacco: Never Used Substance Use Topics Alcohol use: Yes Comment: rare Drug use: Yes Frequency: 1.0 times per week Types: Marijuana Review of Symptoms REVIEW OF SYSTEMS See HPI EXAM: BP 154/88 Pulse 86 Resp 18 Wt 89.4 kg (197 lb 3.2 oz) SpO2 97% BMI 27.50 kg/m General Appearance: Well appearing, alert, in no acute distress, well-hydrated, well nourished.. Skin: Skin color, texture, turgor normal, no suspicious rashes or lesions. Peripheral Pulses: Pulses: femoral=4/4. Genitalia: Penis normal. No urethral discharge. Scrotum normal to palpation. No hernia.. Health Maintenance List COVID-19 VACCINE(1) Never done PNEUMOCOCCAL(2 - PCV) due on 11/07/2019 INFLUENZA(1) due on 10/07/2021 DEPRESSION SCREENING due on 10/16/2021 ANNUAL PCP TEAM CHRONIC DISEASE VISIT due on 01/22/2022 LIPID SCREEN due on 12/23/2024 DTAP,TDAP,TD(2 - Td or Tdap) due on 12/19/2029 SPIROMETRY Completed HEPATITIS C SCREENING Completed HIV SCREENING Completed ASSESSMENT/PLAN: 1. Erectile dysfunction, unspecified erectile dysfunction type - ICD9: 607.84, ICD10: N52.9 (primary diagnosis) Obtain labs to rule out organic cause. Start viagra prn. Consider counseling. - HGB A1C - TSH BLD - TESTOSTERONE, FREE AND TOTAL - CBC + DIFF - COMP METABOLIC PANEL 2. Uncomplicated asthma, unspecified asthma severity, unspecified whether persistent - ICD9: 493.90, ICD10: J45.909 Requesting refill on flonase. - FLUTICASONE PROPIONATE 50 MCG/ACTUATION NASAL SPRAY,SUSPENSION Juju Richardson MD documented in this encounterCenterville06-28-2022 Miscellaneous Notes* Telephone Encounter - Millie Guzmán Ma - 08/03/2021 11:36 AM EDT Patient last visit with PCP 01/22/2021 Follow up appointment scheduled none Millie Guzmán Ma * Telephone Encounter - Mayelin Louis - 08/03/2021 11:32 AM EDT Patient has been identified by name and date of : Yes Pending Prescriptions Disp Refills ALBUTEROL SULFATE HFA 90 MCG/ACTUATION AEROSOL INHALER 18 g 3 Sig: Inhale 2 Puffs as instructed every 4 hours as needed. ZONIA: No CETIRIZINE 5 MG TABLET 30 tablet 5 Sig: Take 1 tablet by mouth once daily. ZONIA: No RX INSTRUCTIONS: Patient aware RX will be sent to pharmacy. No need to notify patient. Mayelin Townsend Pss documented in this encounterCenterville01-12-2022 Miscellaneous Notes* Telephone Encounter - Tracy Simental LPN - 02/17/2021 8:32 AM EST Telephoned pt. Made aware of results. Will think about monoclonal antibodies, not sure he wants it at this time. Tracy Simental LPN * Telephone Encounter - Danelle Luciano APRN.CNP - 02/17/2021 7:58 AM EST Please call patient and let him know he is positive. He does qualify for monoclonal antibodies through [facility] if interested. Danelle Luciano APRN.JUAN ANTONIO documented in this encounterCenterville09-09-2021 History of Present illness Narrative* Johnny Marin RT(Hardik) - 10/15/2020 11:20 AM EDT Radiology Service Progress Note PATIENT NAME: Nikolas Morales DATE OF SERVICE: October 15, 2020 TIME: 11:22 AM PATIENT IDENTITY VERIFICATION COMPLETED USING TWO (2) IDENTIFIERS: Name and Date of confirmedby patient verbally. FALL SCREENING: Has the patient had 2 falls in the last year or 1 fall with injury or currently using an Ambulatory Assistive Device (Walker, Cane, Wheelchair, Crutches, etc.)? No PATIENT GENDER DATA: Male PATIENT RELEVANT IMPLANT DATA REVIEWED: Not Applicable RADIOLOGY DEPARTMENT: General X-ray: Exam(s) Completed: Chest X-Ray PERIPHERAL IV DATA: Not applicable SIGNED BY: RT Naya(Hardik) October 15, 2020 11:22 AM [facility]* Diagnosis Uncomplicated asthma, unspecified asthma severity, unspecified whether persistent documented in this encounter [facility]* Diagnosis Erectile dysfunction, unspecified erectile dysfunction type- Primary Uncomplicated asthma, unspecified asthma severity, unspecified whether persistent documented in this encounter [facility]* Diagnosis Uncomplicated asthma, unspecified asthma severity, unspecified whether persistent documented in this encounter [facility] note* Diagnosis Uncomplicated asthma, unspecified asthma severity, unspecified whether persistent documented in this encounter [facility] note* Diagnosis Uncomplicated asthma, unspecified asthma severity, unspecified whether persistent documented in this encounter [facility] note* Diagnosis Erectile dysfunction, unspecified erectile dysfunction type- Primary Screening for hyperlipidemia Screening for lipoid disorders Routine physical examination Routine general medical examination at a [facility] Mild intermittent asthma without complication Unspecified asthma Elevated BP without diagnosis of hypertension HONEY (generalized anxiety disorder) Generalized anxiety disorder Smoker Tobacco use disorder documented in this encounter [facility] note* Diagnosis Gastroenteritis- Primary Other and unspecified noninfectious gastroenteritis and colitis documented in this encounter [facility] note* Diagnosis Erectile dysfunction, unspecified erectile dysfunction type documented in this encounter [facility] note* Diagnosis Erectile dysfunction, unspecified erectile dysfunction type documented in this encounter [facility] note* Diagnosis Uncomplicated asthma, unspecified asthma severity, unspecified whether persistent documented in this encounter [facility] note* Diagnosis Viral syndrome- Primary Unspecified viral infection, in conditions classified elsewhere and of unspecified site documented in this encounter [facility] note* Diagnosis Erectile dysfunction, unspecified erectile dysfunction type documented in this encounter [facility] note* Diagnosis Uncomplicated asthma, unspecified asthma severity, unspecified whether persistent documented in this encounter [facility] note* Diagnosis Alcoholic intoxication without complication (CMS/HCC) (HCC)- Primary documented in this encounter [facility]* Diagnosis Uncomplicated asthma, unspecified asthma severity, unspecified whether persistent documented in this encounter [facility] note* Diagnosis Cough documented in this encounter [facility] note* Diagnosis Uncomplicated asthma, unspecified asthma severity, unspecified whether persistent documented in this encounter [facility] note* Diagnosis Uncomplicated asthma, unspecified asthma severity, unspecified whether persistent documented in this encounter [facility] note* Diagnosis Gastroenteritis- Primary Other and unspecified noninfectious gastroenteritis and colitis Uncomplicated asthma, unspecified asthma severity, unspecified whether persistent documented in this encounter [facility] note* Diagnosis Screening for hyperlipidemia- Primary Screening for lipoid disorders Routine physical examination Routine general medical examination at a [facility] care facility Screening for diabetes mellitus Pain in both testicles Testicle lump Other specified disorder of male genital organs Encounter for immunization Need for other specified prophylactic vaccination against single bacterial disease Encounter for screening examination for other mental health and behavioral disorders Screening for depression documented in this encounter [facility] note* Diagnosis Pain in both testicles documented in this encounter [facility] note* Diagnosis Uncomplicated asthma, unspecified asthma severity, unspecified whether persistent (HCC) documented in this encounter [facility] note* Diagnosis Uncomplicated asthma, unspecified asthma severity, unspecified whether persistent (HCC) documented in this encounter [facility] noteNo assessment information availableWSelect [facility], [facility] Work Phone: Reason for referral (narrative)No reason for referral information availableWSelect [facility] Work Phone: Reason for Referral Specialty Diagnoses / Procedures Referred By Contac t Referred To Contact Diagnoses Uncomplicated asthma, unspecified asthma severity, unspecified whether persistent Danelle Luciano APRN.CNP [address] [place] [address] Referral ID Status Reason Start Date Expiration Date Visits Re quested Visits Authorized [id number] Closed 1 1 Specialty Diagnoses / Procedures Referred By Contac t Referred To Contact Diagnoses Uncomplicated asthma, unspecified asthma severity, unspecified whether persistent Juju Richardson MD [address] [place] [address] Referral ID Status Reason Start Date Expiration Date Visits Re quested Visits Authorized [id number] Closed 1 1 Referral ID Status Reason Start Date Expiration Date Visits Re quested Visits Authorized [id number] Closed 1 1 Referral ID Status Reason Start Date Expiration Date Visits Re quested Visits Authorized [id number] Closed 1 1 Referral ID Status Reason Start Date Expiration Date Visits Re quested Visits Authorized [id number] Closed 1 1 Health Concerns Infection Onset Date Last Indicated Resolved Time COVID-19 Rule-Out 02/16/2021 02/16/2021 02/17/2021 4:23 AM EST COVID-19 Confirmed 02/16/2021 02/16/2021 8:53 PM EST Summary Purpose Family History No Family History Records FoundNo Family History Records FoundNo Family History Records Found Advance Directives Advance Directive Response Recorded Date/ Time Do you have a Healthcare Power of Geography Instructor? No September 23, 2024 4:24pm Advance Directives No February 07, 2016 6:11am Chief Complaint and Reason for Visit Chief Complaint Admit Date CONGESTION September 23, 2024 2: 21pm Additional Source Comments Source Comments (unrecognize d section and content) In the event this informatio n is protected by the Federal Confidentiality of Alcohol and Drug Abuse Patient Records regulations: The Federal rules restrict any use of the information to criminally investigate or prosecute any alcohol or drug abuse patient.CentervilleIn the event this information is protected by the Federal Confidentiality of Alcohol and Drug Abuse Patient Records regulations: The Federal rules restrict any use of the information to criminally investigate or prosecute any alcohol or drug abuse patient.CentervilleIn the event this information is protected by the Federal Confidentiality of Alcohol and Drug Abuse Patient Records regulations: The Federal rules restrict any use of the information to criminally investigate or prosecute any alcohol or drug abuse patient.CentervilleIn the event this information is protected by the Federal Confidentiality of Alcohol and Drug Abuse Patient Records regulations: The Federal rules restrict any use of the information to criminally investigate or prosecute any alcohol or drug abuse patient.CentervilleIn the event this information is protected by the Federal Confidentiality of Alcohol and Drug Abuse Patient Records regulations: The Federal rules restrict any use of the information to criminally investigate or prosecute any alcohol or drug abuse patient.CentervilleIn the event this information is protected by the Federal Confidentiality of Alcohol and Drug Abuse Patient Records regulations: The Federal rules restrict any use of the information to criminally investigate or prosecute any alcohol or drug abuse patient.CentervilleIn the event this information is protected by the Federal Confidentiality of Alcohol and Drug Abuse Patient Records regulations: The Federal rules restrict any use of the information to criminally investigate or prosecute any alcohol or drug abuse patient.CentervilleIn the event this information is protected by the Federal Confidentiality of Alcohol and Drug Abuse Patient Records regulations: The Federal rules restrict any use of the information to criminally investigate or prosecute any alcohol or drug abuse patient.CentervilleIn the event this information is protected by the Federal Confidentiality of Alcohol and Drug Abuse Patient Records regulations: The Federal rules restrict any use of the information to criminally investigate or prosecute any alcohol or drug abuse patient.CentervilleIn the event this information is protected by the Federal Confidentiality of Alcohol and Drug Abuse Patient Records regulations: The Federal rules restrict any use of the information to criminally investigate or prosecute any alcohol or drug abuse patient.CentervilleIn the event this information is protected by the Federal Confidentiality of Alcohol and Drug Abuse Patient Records regulations: The Federal rules restrict any use of the information to criminally investigate or prosecute any alcohol or drug abuse patient.CentervilleIn the event this information is protected by the Federal Confidentiality of Alcohol and Drug Abuse Patient Records regulations: The Federal rules restrict any use of the information to criminally investigate or prosecute any alcohol or drug abuse patient.CentervilleIn the event this information is protected by the Federal Confidentiality of Alcohol and Drug Abuse Patient Records regulations: The Federal rules restrict any use of the information to criminally investigate or prosecute any alcohol or drug abuse patient.CentervilleIn the event this information is protected by the Federal Confidentiality of Alcohol and Drug Abuse Patient Records regulations: The Federal rules restrict any use of the information to criminally investigate or prosecute any alcohol or drug abuse patient.CentervilleIn the event this information is protected by the Federal Confidentiality of Alcohol and Drug Abuse Patient Records regulations: The Federal rules restrict any use of the information to criminally investigate or prosecute any alcohol or drug abuse patient.CentervilleIn the event this information is protected by the Federal Confidentiality of Alcohol and Drug Abuse Patient Records regulations: The Federal rules restrict any use of the information to criminally investigate or prosecute any alcohol or drug abuse patient.CentervilleIn the event this information is protected by the Federal Confidentiality of Alcohol and Drug Abuse Patient Records regulations: The Federal rules restrict any use of the information to criminally investigate or prosecute any alcohol or drug abuse patient.CentervilleIn the event this information is protected by the Federal Confidentiality of Alcohol and Drug Abuse Patient Records regulations: The Federal rules restrict any use of the information to criminally investigate or prosecute any alcohol or drug abuse patient.CentervilleIn the event this information is protected by the Federal Confidentiality of Alcohol and Drug Abuse Patient Records regulations: The Federal rules restrict any use of the information to criminally investigate or prosecute any alcohol or drug abuse patient.CentervilleIn the event this information is protected by the Federal Confidentiality of Alcohol and Drug Abuse Patient Records regulations: The Federal rules restrict any use of the information to criminally investigate or prosecute any alcohol or drug abuse patient.CentervilleIn the event this information is protected by the Federal Confidentiality of Alcohol and Drug Abuse Patient Records regulations: The Federal rules restrict any use of the information to criminally investigate or prosecute any alcohol or drug abuse patient.CentervilleIn the event this information is protected by the Federal Confidentiality of Alcohol and Drug Abuse Patient Records regulations: The Federal rules restrict any use of the information to criminally investigate or prosecute any alcohol or drug abuse patient.CentervilleIn the event this information is protected by the Federal Confidentiality of Alcohol and Drug Abuse Patient Records regulations: The Federal rules restrict any use of the information to criminally investigate or prosecute any alcohol or drug abuse patient.CentervilleIn the event this information is protected by the Federal Confidentiality of Alcohol and Drug Abuse Patient Records regulations: The Federal rules restrict any use of the information to criminally investigate or prosecute any alcohol or drug abuse patient.CentervilleIn the event this information is protected by the Federal Confidentiality of Alcohol and Drug Abuse Patient Records regulations: The Federal rules restrict any use of the information to criminally investigate or prosecute any alcohol or drug abuse patient.CentervilleIn the event this information is protected by the Federal Confidentiality of Alcohol and Drug Abuse Patient Records regulations: The Federal rules restrict any use of the information to criminally investigate or prosecute any alcohol or drug abuse patient.CentervilleIn the event this information is protected by the Federal Confidentiality of Alcohol and Drug Abuse Patient Records regulations: The Federal rules restrict any use of the information to criminally investigate or prosecute any alcohol or drug abuse patient.CentervilleIn the event this information is protected by the Federal Confidentiality of Alcohol and Drug Abuse Patient Records regulations: The Federal rules restrict any use of the information to criminally investigate or prosecute any alcohol or drug abuse patient.CentervilleIn the event this information is protected by the Federal Confidentiality of Alcohol and Drug Abuse Patient Records regulations: The Federal rules restrict any use of the information to criminally investigate or prosecute any alcohol or drug abuse patient.CentervilleIn the event this information is protected by the Federal Confidentiality of Alcohol and Drug Abuse Patient Records regulations: The Federal rules restrict any use of the information to criminally investigate or prosecute any alcohol or drug abuse patient.CentervilleIn the event this information is protected by the Federal Confidentiality of Alcohol and Drug Abuse Patient Records regulations: The Federal rules restrict any use of the information to criminally investigate or prosecute any alcohol or drug abuse patient.CentervilleIn the event this information is protected by the Federal Confidentiality of Alcohol and Drug Abuse Patient Records regulations: The Federal rules restrict any use of the information to criminally investigate or prosecute any alcohol or drug abuse patient.[place]ervilleIn the event this information is protected by the Federal Confidentiality of Alcohol and Drug Abuse Patient Records regulations: The Federal rules restrict any use of the information to criminally investigate or prosecute any alcohol or drug abuse patient.[place]ervilleIn the event this information is protected by the Federal Confidentiality of Alcohol and Drug Abuse Patient Records regulations: The Federal rules restrict any use of the information to criminally investigate or prosecute any alcohol or drug abuse patient.[place]ervilleIn the event this information is protected by the Federal Confidentiality of Alcohol and Drug Abuse Patient Records regulations: The Federal rules restrict any use of the information to criminally investigate or prosecute any alcohol or drug abuse patient.[place]ervilleIn the event this information is protected by the Federal Confidentiality of Alcohol and Drug Abuse Patient Records regulations: The Federal rules restrict any use of the information to criminally investigate or prosecute any alcohol or drug abuse patient.[place]ervilleIn the event this information is protected by the Federal Confidentiality of Alcohol and Drug Abuse Patient Records regulations: The Federal rules restrict any use of the information to criminally investigate or prosecute any alcohol or drug abuse patient.CentervilleIn the event this information is protected by the Federal Confidentiality of Alcohol and Drug Abuse Patient Records regulations: The Federal rules restrict any use of the information to criminally investigate or prosecute any alcohol or drug abuse patient.[place]ervilleIn the event this information is protected by the Federal Confidentiality of Alcohol and Drug Abuse Patient Records regulations: The Federal rules restrict any use of the information to criminally investigate or prosecute any alcohol or drug abuse patient.[place]ervilleIn the event this information is protected by the Federal Confidentiality of Alcohol and Drug Abuse Patient Records regulations: The Federal rules restrict any use of the information to criminally investigate or prosecute any alcohol or drug abuse patient.CentervilleIn the event this information is protected by the Federal Confidentiality of Alcohol and Drug Abuse Patient Records regulations: The Federal rules restrict any use of the information to criminally investigate or prosecute any alcohol or drug abuse patient.CentervilleIn the event this information is protected by the Federal Confidentiality of Alcohol and Drug Abuse Patient Records regulations: The Federal rules restrict any use of the information to criminally investigate or prosecute any alcohol or drug abuse patient.CentervilleIn the event this information is protected by the Federal Confidentiality of Alcohol and Drug Abuse Patient Records regulations: The Federal rules restrict any use of the information to criminally investigate or prosecute any alcohol or drug abuse patient.[place] Reason for Visit (unrecogniz ed section and content) Reason Comments Prescription Refills Reason Comments Erectile Dysfunction medication for Reason Comments Opened In Error Reason Comments Results Reason Comments Refill Request Reason Onset Date Comments Refill Request 10/05/2021 Reason Onset Date Comments Refill Request 02/03/2022 Reason Onset Date Comments Refill Request 02/22/2022 Reason Onset Date Comments Refill Request 03/15/2022 Reason Onset Date Comments Refill Request 03/23/2022 Reason Onset Date Comments Refill Request 03/31/2022 Reason Onset Date Comments Refill Request 04/12/2022 Reason Onset Date Comments Refill Request 04/26/2022 Reason Comments Physical Reason Onset Date Comments Refill Request 05/23/2022 Reason Comments Vomiting Fever x 2 days Reason Onset Date Comments Refill Request 02/19/2022 Reason Onset Date Comments Refill Request 08/11/2022 needs today Reason Onset Date Comments Refill Request 10/24/2022 Reason Comments medication issue Reason Comments Vomiting Fever, cough x 1 day Reason Onset Date Comments Refill Request 07/07/2023 Reason Comments Alcohol Intoxication Pt was found on [place] outside of local bar. Pt was given 1 narcan in route and pt did not arouse. Upon arrival pt is lethargic and vomiting, a strong aroma of alcohol is also on the pt. Pt states he drank a lot of IPA's. Reason Onset Date Comments Refill Request 10/16/2023 Reason Onset Date Comments Refill Request 11/13/2023 Reason Comments Chest Congestion SOB x1 week, vomitin g x this AM, low fever Reason Onset Date Comments Refill Request 05/01/2024 Reason Comments Physical Reason Comments Radiology US Specialty Diagnoses / Procedures Referred By Jose Luis bains Referred To Contact [facility] Diagnoses Pain in both testicles Procedures US SCROTUM AND CONTENTS US SCROTUM & CONTENTS Karen Hairston, AUBREY.[facility] [address] [place] [address] Phone: tel: fax: [place] [phone] Referral ID Status Reason Start Date Expiration Date V isits Requested Visits Authorized [id number] Closed Auto-Generate d Referral 05/09/2024 06/08/2025 1 1 Reason Onset Date Comments Refill Request 07/12/2024 Reason Onset Date Comments Refill Request 08/22/2024 Reason Onset Date Comments Refill Request 10/01/2024 Care Teams (unrecognized sec tion and content) Visual Specialist Relationship Specialty Start Date End Date Juju Richardson MD [address] [place] [address] [id number] PCP - General Family Practice 11/06/18 Visual Specialist Relationship Specialty Start Date End Date Juju Richardson MD [address] [place] [address] [id number] PCP - General Family Practice 11/06/18 Visual Specialist Relationship Specialty Start Date End Date Juju Richardson MD [address] [place] [address] [id number] PCP - General Family Practice 11/06/18 Visual Specialist Relationship Specialty Start Date End Date Juju Richardson MD [address] [place] [address] [id number] PCP - General Family Practice 11/06/18 Visual Specialist Relationship Specialty Start Date End Date Juju Richardson MD [address] [facility] [place] [address] PCP - General Family Practice 11/06/18 Visual Specialist Relationship Specialty Start Date End Date Juju Richardson MD [address] [place] [address] PCP - General Family Practice 11/06/18 Visual Specialist Relationship Specialty Start Date End Date Juju Richardson MD [address] [place] [address] PCP - General Family Practice 11/06/18 Visual Specialist Relationship Specialty Start Date End Date Juju Richardson MD [address] [place] [address] PCP - General Family Medicine 11/06/18 Visual Specialist Relationship Specialty Start Date End Date Juju Richardson MD [address] [place] [address] PCP - General Family Medicine 11/06/18 Visual Specialist Relationship Specialty Start Date End Date Juju Richardson MD [address] [place] [address] PCP - General Family Medicine 11/06/18 Visual Specialist Relationship Specialty Start Date End Date Juju Richardson MD [address] [place] [address] PCP - General Family Medicine 11/06/18 Visual Specialist Relationship Specialty Start Date End Date Juju Richardson MD [address] [place] [address] PCP - General Family Medicine 11/06/18 Visual Specialist Relationship Specialty Start Date End Date Juju Richardson MD [address] [place] [address] PCP - General Family Medicine 11/06/18 Visual Specialist Relationship Specialty Start Date End Date Juju Richardson MD [address] [place] [address] PCP - General Family Medicine 11/06/18 Visual Specialist Relationship Specialty Start Date End Date Juju Richardson MD [address] [place] [address] PCP - General Family Medicine 11/06/18 Visual Specialist Relationship Specialty Start Date End Date Juju Richardson MD [address] [place] [address] PCP - General Family Medicine 11/06/18 Visual Specialist Relationship Specialty Start Date End Date Juju Richardson MD [address] [place] [address] PCP - General Family Medicine 11/06/18 Visual Specialist Relationship Specialty Start Date End Date Juju Richardson MD [address] [place] [address] PCP - General Family Medicine 11/06/18 Visual Specialist Relationship Specialty Start Date End Date Juju Richardson MD [address] [place] [address] PCP - General Family Medicine 11/06/18 Visual Specialist Relationship Specialty Start Date End Date Juju Richardson MD [address] [place] [address] PCP - General Family Medicine 11/06/18 Visual Specialist Relationship Specialty Start Date End Date Juju Richardson MD [address] [facility] [place] [address] PCP - General Family Medicine 08/12/23 Visual Specialist Relationship Specialty Start Date End Date Juju Richardson MD [address] [place] [address] PCP - General Family Medicine 11/06/18 Visual Specialist Relationship Specialty Start Date End Date Juju Richardson MD [address] [place] [address] PCP - General Family Medicine 11/06/18 Visual Specialist Relationship Specialty Start Date End Date Juju Richardson MD [address] [place] [address] PCP - General Family Medicine 11/06/18 Visual Specialist Relationship Specialty Start Date End Date Juju Richardson MD [address] [place] [address] PCP - General Family Medicine 11/06/18 Visual Specialist Relationship Specialty Start Date End Date Juju Richardson MD [address] [place] [address] PCP - General Family Medicine 11/06/18 PodlogDanelle damon APRN.PHYSICAL EDUCATION SPECIALIST [address] [place] [address] Central Lab Technician Family Medicine 01/13/24 Visual Specialist Relationship Specialty Start Date End Date Juju Richardson MD [address] [place] [address] PCP - General Family Medicine 11/06/18 PodlogarDanelle APRN.PHYSICAL EDUCATION SPECIALIST [address] [place] [address] Central Lab Technician Family Medicine 01/13/24 Karen Hairston APRN.PHYSICAL EDUCATION SPECIALIST [address] [place] [address] Central Lab Technician Family Medicine 04/29/24 Visual Specialist Relationship Specialty Start Date End Date Juju Richardson MD [address] [place] [address] PCP - General Family Medicine 11/06/18 PodlogarDanelle APRN.PHYSICAL EDUCATION SPECIALIST [address] [place] [address] Central Lab Technician Family Medicine 01/13/24 Karen Hairston HORTICULTURAL SERVICES SUPERVISOR.PHYSICAL EDUCATION SPECIALIST [address] [place] [address] Central Lab Technician Family Medicine 04/29/24 Visual Specialist Relationship Specialty Start Date End Date Juju Richardson MD [address] [place] [address] PCP - General Family Medicine 11/06/18 PodlogarDanelle HORTICULTURAL SERVICES SUPERVISOR.PHYSICAL EDUCATION SPECIALIST [address] [place] [place] [address] Central Lab Technician Family Medicine 01/13/24 Karen Hairston APRN.PHYSICAL EDUCATION SPECIALIST [address] [place] [address] Central Lab Technician Family Medicine 04/29/24 Visual Specialist Relationship Specialty Start Date End Date Juju Richardson MD [address] [place] [address] PCP - General Family Medicine 11/06/18 PodlogDanelle damon APRN.PHYSICAL EDUCATION SPECIALIST [address] [place] [address] Central Lab Technician Family Medicine 01/13/24 Karen Hairston APRN.PHYSICAL EDUCATION SPECIALIST [address] [place] [address] Central Lab Technician Family Medicine 04/29/24 Visual Specialist Relationship Specialty Start Date End Date Juju Richardson MD [address] [place] [address] PCP - General Family Medicine 11/06/18 RelllogDanelle damon APRN.PHYSICAL EDUCATION SPECIALIST [address] [place] [address] Central Lab Technician Family Medicine 01/13/24 Karen Hairston APRN.PHYSICAL EDUCATION SPECIALIST [address] [place] [address] Central Lab Technician Family Medicine 04/29/24 Visual Specialist Relationship Specialty Start Date End Date Juju Richardson MD [address] [place] [address] PCP - General Family Medicine 11/06/18 PodlogarDanelle APRN.PHYSICAL EDUCATION SPECIALIST [address] [place] [address] Central Lab Technician Family Medicine 01/13/24 Visual Specialist Relationship Specialty Start Date End Date Juju Richardson MD [address] [place] [address] PCP - General Family Medicine 11/06/18 PodlogarDanelle APRN.PHYSICAL EDUCATION SPECIALIST [address] [place], [place] 174281 [facility] 01/13/24 Karen Hairston APRN.PHYSICAL EDUCATION SPECIALIST [address] [place] [address] [id number] [facility] 07/18/24 Team Status: Active Member Role/Relationship Status Dates Dr. Malachi Richardson MD Primary Care Provider Acti ve Team Status: Inactive Member Role/Relationship Status Dates Dr. Malachi Richardson MD Primary Care Provider Acti ve Start: September 23, 2024 End: September 23, 2024 Dr. Sal Fernandez MD Emergency Provider Active Sta rt: September 23, 2024 End: September 23, 2024 Visual Specialist Relationship Specialty Start Date End Date Juju Richardson MD [address] [place] [address] [id number] PCP - General Family Medicine 11/06/18 PodlogarDanelle APRN.PHYSICAL EDUCATION SPECIALIST [address] [place] [address] [id number] [facility] 01/13/24 Karen Hairston APRN.PHYSICAL EDUCATION SPECIALIST [address] [place] [address] [id number] [facility] 07/18/24 Scheduled Active and Recently Administ ered Medications (unrecognized section and content) Medication Order 08/10/2023 08/11/2023 08/12/2023 lactated ringers bolus 1,000 mL (COMPLETED) 1,000 mL, IntraVENous, at 1,000 mL/hr, Administer over 1 Hours, Once, On 08/12/23 at 0010, For 1 dose 0109 (New Bag - Prov ider: Gennaro Garza RN)0209 (Due: Stopped - Provider: Gennaro Garza RN) ondansetron (Zofran) injection 4 mg (COMPLETED) 4 mg, IntraVENous, Once, On 08/12/23 at 0010, For 1 dose 0107 (Given - Provid er: Gennaro Garza RN) (unrecognized sect ion and content) No Status Records FoundNo Status Records FoundNo Status Records Found INFORMATION SOURCE (unrecogn ized section and content) DATE CREATED AUTHOR [facility]/2023 [facility] DATE CREATED AUTHOR AUTHOR'S ORGANIZ ATION 05/14/2024 [facility] DATE CREATED AUTHOR AUTHOR'S ORGANIZ ATION 09/29/2024 [facility] Goals (unrecognized section and content) Goals may be documented in a n alternate section FOR RECORDS PERTAINING TO PATIENTS WHO ARE OR HAVE BEEN ENROLLED IN A CHEMICAL DEPENDENCY/SUBSTANCEABUSE PROGRAM, SOME INFORMATION MAY BE OMITTED. This clinical summary was aggregated from multiple sources. Caution should be exercised in using it in the provision of clinical care. This summary normalizes information from multiple sources, and as a consequence, information in this document may materially change the coding, format and clinical context of patient data. In addition, data may be omitted in some cases. CLINICAL DECISIONS SHOULD BE BASED ON THE PRIMARY CLINICAL RECORDS. [employer] provides no warranty or guarantee of the accuracy or completeness of information in this document.
[2025-02-03] MEDS: Orphenadrine 100 MG Tablet PO (01:17)
[2025-02-03] MEDS: Albuterol Sulfate 8 gm Inhaler (60 puffs) 2 PUFF INHALATION (01:50)
[2025-02-03 02:09] VITALS: BP 143/103
--- NOTE | 2025-02-03 02:40 | EX.ED.DYSGE1 ---
HPI History of Present Illness Chief Complaint: Back Informant: patient Narrative Narrative: Patient is a 44-year-old male with past medical history of smoking who also reports pneumonia roughly 6 months ago. He states that this evening he was lying in bed relaxing trying to get ready to fall asleep when he kind of stretched his head downward. He states that after doing this he also had a bout of coughing and then felt pain in his left upper back. He states that he also felt short of breath with this and had concerned that he may have developed pneumonia once again because of his history and therefore called EMS to bring him in for evaluation. [facility] Medical History Asthma Home Medications Medication Instructions Recorded Last Taken Type prednisone 20 mg tablet 40 mg (2 x 20 mg) PO DAILY 7 days 08/10/23 Unknown Rx #14 tabs doxycycline monohydrate 100 mg 100 mg PO BID #10 CAPSULES 09/23/24 Unknown Rx capsule prednisone 20 mg tablet 60 mg (3 x 20 mg) PO DAILY #12 09/23/24 Unknown Rx TABLETS methocarbamol 500 mg tablet 500 mg PO 4X/DAY PRN Muscle 02/03/25 Unknown Rx pain/spasm #40 tabs Allergy/AdvReac Type Severity Reaction Status Date / Time No Known Allergies Allergy Verified 02/03/25 00:08 Social History Smoking Status: Current every day smoker tobacco type: cigarettes substance use type: does not use ROS ROS ED Constitutional Constitutional ED: Reports chills, fever(s) and subjective Eyes Eyes: Denies change in vision ENT ENT ED: Reports rhinorrhea; Denies sore throat Cardiovascular Cardiovascular: Denies chest pain Respiratory/Chest Respiratory/Chest: Reports cough and dyspnea Gastrointestinal Gastrointestinal: Denies abdominal pain, diarrhea, nausea or vomiting Musculoskeletal Musculoskeletal: Reports back pain Integumentary Denies rash Neurologic Neurologic: Denies headache(s) Hematologic/Lymphatic Hematologic/Lymphatic: Denies easy bleeding or easy bruising EXAM Physical Exam Const Vital Signs: 02/03/25 00:05 02/03/25 02:09 02/03/25 02:41 Temperature 97 F L 97.6 F L Temperature Source Temporal Pulse Rate 76 58 L Respiratory Rate 18 18 Blood Pressure 173/97 H 143/103 H 148/85 H Blood Pressure Mean 122 116 106 Pulse Ox 98 99 Positive well nourished and well developed General Appearance ED: well developed; Negative for pallor HEENT HEENT Narrative: Normocephalic atraumatic No tongue or lip swelling no oral lesions no airway edema or compromise Cobblestoning is noted in the posterior pharynx consistent with sinus drainage without secondary findings to suggest infection Eyes PERRL and EOMs intact bilaterally General Eye ED: Negative for scleral icterus Neck supple and no JVD Resp normal respiratory effort Resp Narrative: Breath sounds are diminished throughout with diffuse expiratory wheeze No nasal flaring retractions tachypnea or accessory muscle use Cardio regular rate and regular rhythm Rate: other Other Details: Radial and carotid pulses are equal and symmetric Back/Spine Back/Spine Narrative: No bony deformity or step-off of the thoracic or lumbar spine No midline tenderness to palpation There is left upper parathoracic tension and spasm noted mild pain with palpation No overlying soft tissue changes to suggest trauma or infection Extremity normal to inspection Extremity Narrative: No asymmetric edema no pitting edema negative Homans' sign bilaterally Neuro oriented x3, CN's II-XII intact bilaterally and no sensory deficits noted Sensorium / Orientation: alert Motor Exam: strength 5/5 throughout Psych mental status grossly normal Skin no rashes or lesions noted and no wounds General Skin Exam: Negative for jaundice or pallor MDM MDM MDM Narrative Medical decision making narrative: Patient arrived to the ER hypertensive otherwise with stable vitals in no acute respiratory distress and satting 98 to 100% on room air. He reported left upper back pain after kind of bending and stretching his neck as well as a coughing spell. His physical exam does not show infectious changes such as cellulitis or abscess. He does report subjective fevers and chills and with this cough there is concern he could have a viral infection such as COVID influenza or RSV. There is also concern for pneumonia as he does have a history of this as well as potential spontaneous pneumothorax and therefore chest x-ray was ordered. As he is in no acute distress and not displaying hypoxia and he denied any palpitations or chest discomfort associated with his symptoms I felt no need for EKG or basic blood work. After receiving ibuprofen and Norflex as well as an albuterol inhaler he reported complete resolution of symptoms. His viral swab was negative and his chest x-ray revealed emphysema consistent with his history of smoking but no sign of pneumonia or pneumothorax. Therefore at this time I feel the patient most likely had a bronchospasm coupled with muscular irritation causing the symptoms but as those symptoms have since resolved and his vitals are stable and overall workup reveals no clinically significant changes there is no need for an intervention and is otherwise safe for discharge History & Record Review Discussion w/independent historian: Patient Radiography Diagnostic Testing: Clinical Impression(s) from Imaging Studies Chest X-Ray 02/03/25 00:39 IMPRESSION: Unchanged pulmonary emphysema. No radiographic evidence of an acute abnormality. Reading Location: [place] [id number] Chest x-ray as interpreted by the emergency medicine physician reveals emphysema changes without acute infiltrate pneumothorax pleural effusion or widening of the mediastinum Discharge Plan Triage Chief Complaint: Back ED Provider: Haider Morelos Dx/Rx/DC Orders Clinical Impression: Acute bronchospasm, Back pain, Tobacco use Instructions: ED Back Spasm, No Trauma, ED Bronchospasm (Adult) Prescriptions: New methocarbamol 500 mg tablet 500 mg PO 4X/DAY PRN (Reason: Muscle pain/spasm) Qty: 40 0RF No Action prednisone 20 mg tablet 40 mg PO DAILY 7 Days Qty: 14 0RF prednisone 20 mg tablet 60 mg PO DAILY Qty: 12 0RF doxycycline monohydrate 100 mg capsule 100 mg PO BID Qty: 10 0RF Stand Alone Forms: ED Work / School Excuse Primary Care Provider: Malachi Richardson Referrals: Malachi Richardson MD [Primary Care Provider, Family Practice] Activity Restrictions/Additional Instructions: Your x-ray showed emphysema changes but no pneumonia or pneumothorax/hole in your lung. Your history and exam indicate that you most likely had a bronchospasm/sudden narrowing of your lung tissue which then led you to use extra muscles to help breathe which then caused pain in your back. If symptoms return use your albuterol inhaler take 3 [id number] ibuprofen and 1 muscle relaxer and if symptoms improve after roughly 30 minutes then it is okay to stay home. If symptoms persist despite treatment or you have any further concerns return to the ER for repeat evaluation Print Language: Chinese Disposition Disposition: Home, Self Care Discharge Date/Time: 02/03/25 02:45
[2025-02-03 02:41] VITALS: BP 148/85; PULSE 58; RESP 18; TEMP 36.4; O2SAT 99
== END 2025-02-03 02:45 | disposition home or self-care (01) ==
PROVIDERS: Emergency Provider Emergency Medicine; PCP Family Medicine; Visit Provider Emergency Medicine
DX: J98.01 Acute bronchospasm (principal); M54.9 Dorsalgia, unspecified; F17.210 Nicotine dependence, cigarettes, uncomplicated
CPT/HCPCS: 71046; 87631; 99284